=== PATIENT | male | born 1950 | race Caucasian/White ===

== ENCOUNTER → 2016-10-02 | Outpatient (CLI) | payer MEDICARE, OTHER ==
--- NOTE | 2016-10-02 12:35 | EST ---
DATE OF SERVICE: 10/02/2016 AGE: 66Y SEX: M HT: 62 WT: 143 lbs. Protocol Edgardo: X Other: Stage: II Dur. of Exercise: 7 minutes *Heart Rate Blood Pressure *Rest: 82 Rest: 134/87 * *Max. Achieved: 142 Maximum BP: 172/77 85% PMHR: 130 100% PMHR: 153 *METS: 8 INDICATION OF THE STUDY: Chest pain. MEDICATIONS: Metformin. STRESS DATA: Pretesting physical examination showed the heart rate of 82, pressure is 134/87 mmHg, Baseline EKG showed sinus rhythm. The patient exercised on the treadmill according to Edgardo protocol for a total of 7 minutes and achieved 8 of METs. Max heart rate was 142, which is about 92% of maximum predicted heart rate. Maximum blood pressure was 172/77 mmHg. Clinically, the patient did not have any symptoms of chest pain or discomfort and the EKG did not show any significant ST or T wave abnormalities consistent with ischemia. CONCLUSION: 1. Good exercise capacity. 2. Normal EKG in response to exercise.
--- NOTE | 2016-10-02 13:02 | ECHOF ---
Referral Reason:E78.5 hyperlipid MEASUREMENTS -------- HEIGHT: 157.5 cm WEIGHT: 64.9 kg BP: 123/60 RVIDd: 2.5 cm (< 3.3) IVSd: 1.1 cm (0.6 - 1.1) LVIDd: 4.1 cm (3.9 - 5.3) LVPWd: 1.0 cm (0.6 - 1.1) IVSs: 1.5 cm LVIDs: 3.2 cm LVPWs: 1.5 cm LAESV Index (A-L): 11.42 ml/m Ao Diam: 3.4 cm (2.0 - 3.7) AV Cusp: 1.8 cm (1.5 - 2.6) LA Diam: 3.4 cm (2.7 - 3.8) MV EXCURSION: 10.087 mm (> 18.000) MV EF SLOPE: 112 mm/s (70 - 150) EPSS: 1.2 cm MV E Adam: 0.49 m/s MV DecT: 208 ms MV A Adam: 0.69 m/s MV E/A Ratio: 0.70 AR PHT: 521 ms RAP: 5.00 mmHg RVSP: 26.90 mmHg FINDINGS -------- Sinus rhythm. This was a technically adequate study. Overall left ventricular systolic function is normal with, an EF between 55 - 60 %. The right ventricle is normal in size and function. Normal LA size by volume 22+/-6 ml/m2. The right atrium is normal in size. The aortic valve is trileaflet, and appears structurally normal. No aortic stenosis or regurgitation. The mitral valve leaflets are mildly thickened. There is trace to mild mitral regurgitation. Trace tricuspid regurgitation present. There is no evidence of pulmonary hypertension. The right ventricular systolic pressure, as measured by Doppler, is 26.90mmHg. The pulmonic valve is normal. The aortic root size is normal. Normal inferior vena cava with normal inspiratory collapse consistent with estimated right atrial pressure of 5 mmHg. The pericardium is normal. There is no pericardial effusion. CONCLUSIONS -------- 1. Sinus rhythm. 2. The aortic root size is normal. 3. There is no pericardial effusion. 4. Overall left ventricular systolic function is normal with, an EF between 55 - 60 %. 5. Normal LA size by volume 22+/-6 ml/m2. 6. The aortic valve is trileaflet, and appears structurally normal. No aortic stenosis or regurgitation. 7. The mitral valve leaflets are mildly thickened. 8. There is trace to mild mitral regurgitation. 9. Trace tricuspid regurgitation present. 10. There is no evidence of pulmonary hypertension. 11. The right ventricular systolic pressure, as measured by Doppler, is 26.90mmHg. DEMOLITION HAMMER OPERATOR: Theo Javed RDCS
== END | disposition home or self-care (01) ==
LOC: RADNMMAIN 10:26
PROVIDERS: ATTEND Family Medicine
DX: I08.1 Rheumatic disorders of both mitral and tricuspid valves (principal); E78.5 Hyperlipidemia, unspecified
CPT/HCPCS: 93017; 93306

== ENCOUNTER 2016-12-31 06:13 | Day surgery (SDC) | payer MEDICARE, OTHER ==
[2016-12-24 14:44] VITALS: BMI 26.6
[~2016-12-31 06:13] MED LIST: LACTATED RINGERS 1,000 ML IV SCH; MOXIFLOXACIN HCL 0.5% DROPS 3 ML BTL OP ONE; TETRACAINE 0.5% OPHTH (PF) DROPS 4 ML BTL OP ONE; TIMOLOL 0.5% OPHTH SOLN (PF) 0.2 ML DROPERETTE OP ONE
[2016-12-31] MEDS: CYCLOPENTOLATE 1% OPHTH SOLN 2 ML BTL OP ONE ×3 (06:28→06:41)
[2016-12-31 06:30] VITALS: RESP 16; TEMP 97.9
[2016-12-31] MEDS: PHENYLEPHRINE 2.5% OPHTH DRP 2ML OP NR ×3 (06:31→06:44)
[2016-12-31] MEDS ORDERED: LIDOCAINE 1% 20 ML VIAL (10MG/ML) FOR IV START INTRADERMA ONE (06:36)
[2016-12-31 06:41] LABS: Glucose,Whole Blood 180 mg/dL (75-99)
[2016-12-31] MEDS ORDERED: fentaNYL (PF) 50 MCG/ML 2 ML AMP ONE (07:23)
[2016-12-31] MEDS ORDERED: MIDAZOLAM 2 MG/2 ML VIAL ONE (07:23)
[2016-12-31] MEDS ORDERED: EPINEPHrine (PF) 0.3 ML in BALANCED SALT IRRIG SOLN COMB2 500 ML IRRIGATION ONE (07:31)
[2016-12-31] MEDS ORDERED: HYALURONATE SODIUM INTRAOCULAR 1 EACH SYRINGE (12MG/ML) INTRAOCULA ONE (07:34)
[2016-12-31] MEDS ORDERED: BALANCED SALT IRRIG SOLN COMB2 15 ML IRRIG.SOLN INTRAOCULA ONE (07:35)
[2016-12-31] MEDS ORDERED: CHONDROITIN-SOD HYALURONATE 1 EACH SYRINGE (0.75 ML) INTRAOCULA ONE (07:35)
[2016-12-31] MEDS ORDERED: LIDOCAINE 1% (PF) 10MG/ML VIAL MISCELLANE ONE (07:36)
--- NOTE | 2016-12-31 07:57 | P.OP ---
Date of Procedure: 12/31/16 Preoperative Diagnosis: NS & POAG moderate Postoperative Diagnosis: same Procedure(s) Performed: PIOL & iStent implantation Implants: PCB00 21.00 & [id number] Anesthesia: MAC Surgeon: Chace Caro Estimated Blood Loss (ml): 0 Pathology: none sent Condition: stable Disposition: same day Indications for Procedure: blurry vision and glaucoma Operative Findings: No comlpications Description of Procedure:
[2016-12-31 08:18] VITALS: BP 125/75; PULSE 66
--- NOTE | 2017-01-01 15:09 | OP ---
OPERATIVE REPORT Date of Surgery: DATE OF SURGERY: 12/31/2016 PROCEDURE: Phacoemulsification of cataract and intraocular lens implant of the right eye with iStent implantation of the right eye. PREOPERATIVE DIAGNOSES: Nuclear sclerosis. cortical sclerosis, posterior subcapsular cataract, and primary open angle glaucoma, moderate stage. POSTOPERATIVE DIAGNOSIS: Nuclear sclerosis. cortical sclerosis, posterior subcapsular cataract, and primary open angle glaucoma, moderate stage. SURGEONS: Dr. Chace Caro. ANESTHESIA: Topical. ESTIMATED BLOOD LOSS: None. SPECIMEN TAKEN: None. NARRATIVE: After obtaining the appropriate consent, the patient was brought to the operating room. There he was placed on cardiac monitoring, prepped and draped in the usual sterile manner. He was approached from his right temporal side and at the 11 o'clock position a 1.1 mm stab blade was used to create a paracentesis port. Through this opening 1% Xylocaine MPF 50/50 mixed with balanced salt solution was injected into the anterior chamber. This was followed by stabilization of the anterior chamber with Viscoat. Additionally, a small dollop of Viscoat was placed on the patient's cornea. At the 9 o'clock position, a 2.5 mm keratome was used to create a self-sealing corneal flap incision in Langerman's fashion. The patient was then asked to rotate his head approximately 45 degrees to his left and maintain fixation in that general direction. A gonial prism was placed on the patient's eye and examination of the anterior chamber angle revealed where the trabecular meshwork was. A Glaukos iStent model [id number] was then advanced across the anterior chamber and placed into the trabecular mesh work with a small amount of blood refluxing through the tube. The device was checked for proper placement by manipulating it and it returned to its proper position. The patient was then returned to the normal supine position and a cystotome was used to start a continuous tear capsulorrhexis which was completed using the Utrata forceps. Hydrodissection and hydrodelineation of the lens was accomplished with balanced salt solution. Phacoemulsification of the lens utilizing phaco chop was accomplished in 13.04 seconds at 13% power. Additional Xylocaine MPF was instilled into the anterior chamber. This was followed by removal of the remaining cortex under irrigation and aspiration along with careful polishing of the posterior capsule in the capsule vacuum mode. Provisc was then used to then stabilize the capsular bag and an ADWOA PCB00 21.0 diopter posterior chamber intraocular lens was inserted in the capsular bag without difficulty. The remaining viscoelastic was removed from in and around the intra-ocular lens as well as the anterior chamber. The eye was brought to normal intraocular pressure through the paracentesis port with balanced salt solution. The eye was checked for water tight integrity. The patient then received 2 drops of 0.5% timolol followed by 2 drops of moxifloxacin, was then lightly patched and shielded in the usual manner. There were no complications in the procedure. He tolerated the procedure well and was returned to outpatient recovery in good condition. MMODL / IJN: [id number] /
== END 2016-12-31 08:48 | disposition home or self-care (01) ==
LOC: OR 06:13
PROVIDERS: ATTEND Ophthalmology
DX: H25.043 Posterior subcapsular polar age-related cataract, bilateral (principal); H25.10 Age-related nuclear cataract, unspecified eye; H40.1112 Primary open-angle glaucoma, right eye, moderate stage; H52.223 Regular astigmatism, bilateral; H52.11 Myopia, right eye; H52.4 Presbyopia; E11.9 Type 2 diabetes mellitus without complications; E78.5 Hyperlipidemia, unspecified; Z79.84 Long term (current) use of oral hypoglycemic drugs; Z79.899 Other long term (current) drug therapy
CPT/HCPCS: 0191T; 66984

== ENCOUNTER 2019-10-29 22:52 | Emergency (ER) | payer MEDICARE, OTHER ==
[2019-10-29 22:57] VITALS: BP 164/85; PULSE 96; RESP 16; TEMP 98.3
[2019-10-30] MEDS ORDERED: LIDOCAINE 1%-EPI 1:100,000 20 ML VIAL SQ STA (00:05)
[2019-10-30] MEDS ORDERED: AMOXIC-POT CLAV 875-125MG 1 EACH TAB PO STA (00:08)
[2019-10-30] MEDS ORDERED: AMOXIC-POT CLAV 875MG STARTER PACK 2 TAB BTL PO STA (00:08)
--- NOTE | 2019-10-30 00:14 | ED ---
Animal Bite HPI - General Chief Complaint: Animal Bite Stated Complaint: Dog Bite Time Seen by Provider: 10/29/19 23:25 Source: patient, RN notes reviewed, old records reviewed Mode of arrival: ambulatory Limitations: no limitations - History of Present Illness Initial Comments: This is a 69-year-old male DF for evaluation presents today for evaluation ofbit by dog. Patient is a significant flap mild bleeding. Patient denies any other complaints. No other injuries noted. Medical history is unremarkable no medications, no modifying factors for symptoms patient's dog was owned with immunizations and shot up-to-date MD Complaint: animal bite (Dog) -: hour(s) Location: face Animal: dog Description: household pet Mechanism: bite Pain Description: dull Severity scale (1-10): 3 Context: unprovoked Associated Symptoms: none - Related Data Home Medications Medication Instructions Recorded Confirmed Aspirin [Adult Low Dose Aspirin EC] 81 mg PO DAILY 08/13/15 12/31/16 Bimatoprost [Lumigan .01% Ophth 1 drop BOTH EYES HS 08/13/15 12/31/16 Soln] Fenofibrate [Tricor] 160 mg PO DAILY 08/13/15 12/31/16 Simvastatin [Zocor] 10 mg PO HS 08/13/15 12/31/16 Timolol 0.5% Ophth Soln [Timoptic 1 drop BOTH EYES DAILY 08/13/15 12/31/16 0.5% Ophth Soln] metFORMIN HCL [Glucophage] 500 mg PO BID 08/13/15 12/31/16 Previous Rx's Medication Instructions Recorded Amoxic-Pot Clav 875-125Mg 1 tab PO Q12HR #20 tablet 10/30/19 [Augmentin 875-125] Allergies Allergy/AdvReac Type Severity Reaction Status Date / Time No Known Allergies Allergy Verified 10/29/19 22:57 Review of Systems ROS Statement: Those systems with pertinent positive or pertinent negative responses have been documented in the HPI. ROS Other: All systems not noted in ROS Statement are negative. Past Medical History Past Medical History: Diabetes Mellitus, Eye Disorder, Hyperlipidemia Additional Past Medical History / Comment(s): hx kidney stones, CATARACTS, GLAUCOMA History of Any Multi-Drug Resistant Organisms: None Reported Past Surgical History: No Surgical Hx Reported Additional Past Surgical History / Comment(s): 08/14/16 LEFT and right EYE CATARACT SX WITH ISTENT Past Anesthesia/Blood Transfusion Reactions: No Reported Reaction Past Psychological History: No Psychological Hx Reported Smoking Status: Never smoker Past Alcohol Use History: Rare Past Drug Use History: None Reported - Past Family History Sister(s) Family Medical History: Cancer Mother Family Medical History: Cancer General Exam Limitations: no limitations General appearance: alert, in no apparent distress Head exam: Present: normocephalic, normal inspection. Absent: atraumatic (Patient is significantly laceration the facial area off nose, flap with drainage and blood) Eye exam: Present: normal appearance, PERRL, EOMI. Absent: scleral icterus, conjunctival injection, periorbital swelling ENT exam: Present: normal exam, mucous membranes moist Neck exam: Present: normal inspection. Absent: tenderness, meningismus, lymphadenopathy Respiratory exam: Present: normal lung sounds bilaterally. Absent: respiratory distress, wheezes, rales, rhonchi, stridor Cardiovascular Exam: Present: regular rate, normal rhythm, normal heart sounds. Absent: systolic murmur, diastolic murmur, rubs, gallop, clicks GI/Abdominal exam: Present: soft, normal bowel sounds. Absent: distended, tenderness, guarding, rebound, rigid Extremities exam: Present: normal inspection, full ROM, normal capillary refill. Absent: tenderness, pedal edema, joint swelling, calf tenderness Back exam: Present: normal inspection Neurological exam: Present: alert, oriented X3, CN II-XII intact Psychiatric exam: Present: normal affect, normal mood Skin exam: Present: warm, dry, intact, normal color. Absent: rash Course Vital Signs 10/29/19 22:52 Temperature 98.3 F Pulse Rate 96 Respiratory 16 Rate Blood Pressure 164/85 O2 Sat by Pulse 100 Oximetry - Reevaluation(s) Reevaluation #1: Medical records reviewed Patient feels good for discharge home Procedures - Laceration Laceration #1 Consent Obtained: verbal consent Indication: laceration Site: face Description: stellate, irregular Depth: simple, single layer Anesthetic Used: lidocaine 1%, with epi Anesthesia Technique: local infiltration Pre-repair: wound explored Type of Sutures: vicryl Size of Sutures: 5-0 Technique: simple, interrupted Patient Tolerated Procedure: well Medical Decision Making - Medical Decision Making 69 male with significant dogbite of the nose nose is repaired here in the ER patient antibiotics and will be discharged Disposition Clinical Impression: Dog bite, Dog bite of nose Disposition: HOME SELF-CARE Condition: Good Instructions (If sedation given, give patient instructions): Animal Bite (ED) Prescriptions: Amoxic-Pot Clav 875-125Mg [Augmentin 875-125] 1 tab PO Q12HR #20 tablet Is patient prescribed a controlled substance at d/c from ED?: No Referrals: Mitch Ashley DO [Primary Care Provider] - 1-2 days
== END 2019-10-30 01:12 | disposition home or self-care (01) ==
LOC: EC 22:52
DX: S01.25XA Open bite of nose, initial encounter (principal); E11.9 Type 2 diabetes mellitus without complications; H57.9 Unspecified disorder of eye and adnexa; E78.5 Hyperlipidemia, unspecified; Z79.82 Long term (current) use of aspirin; Z79.84 Long term (current) use of oral hypoglycemic drugs; Z79.899 Other long term (current) drug therapy; Z98.42 Cataract extraction status, left eye; Z98.41 Cataract extraction status, right eye; W54.0XXA Bitten by dog, initial encounter
CPT/HCPCS: 12011; 99282

== ENCOUNTER 2021-09-25 22:15 | Emergency (ER) | payer MEDICARE, OTHER ==
[2021-09-26 00:03] VITALS: TEMP 98.3
[2021-09-26] MEDS ORDERED: ONDANSETRON ODT 4 MG TAB PO STA (00:04)
[2021-09-26 00:23] LABS: Appearance,Urine Clear (Clear); Bilirubin,Urine Negative (Negative); Blood,Urine Moderate (Negative); Color,Urine Yellow; Glucose,Urine (UA) Negative (Negative); Ketones,Urine Negative (Negative); Leukocyte Esterase,Urine Trace (Negative); Mucus,Urine Rare /hpf; Nitrite,Urine Negative (Negative); PH, Urine 5.5 (5.0-8.0); Protein,Urine Trace (Negative); RBC,Urine 74 /hpf (0-5); Urobilinogen,Urine <2.0 mg/dL (<2.0); WBC,Urine 8 /hpf (0-5)
[2021-09-26 00:36] LABS: Basophils % (A) 0 %; Eosinophils # (A) 0.1 k/uL (0-0.7); Eosinophils % (A) 2 %; HCT 47.5 % (39.0-53.0); HGB 15.2 gm/dL (13.0-17.5); Lymphocytes # (A) 1.8 k/uL (1.0-4.8); Lymphocytes % (A) 25 %; MCH 29.7 pg (25.0-35.0); MCHC 32.1 g/dL (31.0-37.0); MCV 92.4 fL (80.0-100.0); Mean Platelet Volume 8.9; Monocytes # (A) 0.3 k/uL (0-1.0); Monocytes % (A) 4 %; Neutrophils % (A) 68 %; Platelet Count 195 k/uL (150-450); RBC 5.14 m/uL (4.30-5.90); RDW 13.2 % (11.5-15.5); WBC 7.3 k/uL (3.8-10.6)
--- NOTE | 2021-09-26 00:57 | XR ---
EXAMINATION TYPE: XR KUB DATE OF EXAM: 09/26/2021 COMPARISON: NONE HISTORY: Vomiting TECHNIQUE: 2 views FINDINGS: There is a mild lumbar dextroscoliosis. There is 4 mm calculus over the lower pole left kid kunal. There is no sign of intestinal obstruction or pneumoperitoneum. Fecal pattern is normal. There a re phleboliths in the pelvis. Lung bases are clear. No evidence of a mass. IMPRESSION: Nonacute abdomen.
[2021-09-26 01:43] LABS: Potassium 4.5 mmol/L (3.5-5.1); Total Protein 7.6 g/dL (6.3-8.2)
[2021-09-26 01:45] LABS: Calcium 9.9 mg/dL (8.4-10.2); Total Bilirubin 0.5 mg/dL (0.2-1.3)
[2021-09-26 03:42] VITALS: BP 123/78; PULSE 70; RESP 16
--- NOTE | 2021-09-26 04:37 | ED ---
Nausea/Vomiting/Diarrhea HPI - General Chief complaint: Nausea/Vomiting/Diarrhea Stated complaint: Vomiting Time Seen by Provider: 09/26/21 03:56 Source: patient Mode of arrival: ambulatory - History of Present Illness MD complaint: nausea, vomiting Onset/Timin -: hour(s) Description of Vomiting: watery Associated Abdominal Pain: No Severity scale (1-10): 0 Consistency: now resolved Improves with: none Worsens with: none Associated Symptoms: nausea/vomiting - Related Data Home Medications Medication Instructions Recorded Confirmed Aspirin [Adult Low Dose Aspirin EC] 81 mg PO DAILY 08/13/15 12/31/16 Bimatoprost [Lumigan .01% Ophth 1 drop BOTH EYES HS 08/13/15 12/31/16 Soln] Fenofibrate [Tricor] 160 mg PO DAILY 08/13/15 12/31/16 Simvastatin [Zocor] 10 mg PO HS 08/13/15 12/31/16 Timolol 0.5% Ophth Soln [Timoptic 1 drop BOTH EYES DAILY 08/13/15 12/31/16 0.5% Ophth Soln] metFORMIN HCL [Glucophage] 500 mg PO BID 08/13/15 12/31/16 Previous Rx's Medication Instructions Recorded Amoxic-Pot Clav 875-125Mg 1 tab PO Q12HR #20 tablet 10/30/19 [Augmentin 875-125] Ondansetron Odt [Zofran ODT] 4 mg PO Q8HR PRN #10 tab 09/26/21 Allergies Allergy/AdvReac Type Severity Reaction Status Date / Time No Known Allergies Allergy Verified 09/26/21 00:04 Review of Systems ROS Statement: Those systems with pertinent positive or pertinent negative responses have been documented in the HPI. ROS Other: All systems not noted in ROS Statement are negative. Constitutional: Denies: fever, chills, weakness Respiratory: Denies: cough, dyspnea Cardiovascular: Denies: chest pain, palpitations Gastrointestinal: Reports: nausea, vomiting. Denies: abdominal pain, diarrhea, constipation, hematemesis, melena, hematochezia Genitourinary: Denies: dysuria, frequency, testicular pain Musculoskeletal: Denies: back pain Skin: Denies: rash Neurological: Denies: headache, weakness, numbness Past Medical History Past Medical History: Diabetes Mellitus, Eye Disorder, Hyperlipidemia, Thyroid Disorder Additional Past Medical History / Comment(s): hx kidney stones, CATARACTS, GLAUCOMA History of Any Multi-Drug Resistant Organisms: None Reported Past Surgical History: No Surgical Hx Reported Additional Past Surgical History / Comment(s): 08/14/16 LEFT and right EYE CATARACT SX WITH ISTENT Past Anesthesia/Blood Transfusion Reactions: No Reported Reaction Past Psychological History: No Psychological Hx Reported Smoking Status: Never smoker Past Alcohol Use History: Rare Past Drug Use History: None Reported - Past Family History Sister(s) Family Medical History: Cancer Mother Family Medical History: Cancer General Exam General appearance: alert, in no apparent distress Head exam: Present: atraumatic, normocephalic Eye exam: Present: normal appearance. Absent: scleral icterus, conjunctival injection Neck exam: Present: normal inspection Respiratory exam: Present: normal lung sounds bilaterally. Absent: respiratory distress, wheezes, rales, rhonchi, stridor Cardiovascular Exam: Present: regular rate, normal rhythm, normal heart sounds. Absent: systolic murmur, diastolic murmur, rubs, gallop GI/Abdominal exam: Present: soft. Absent: distended, tenderness, guarding, rebound, rigid, mass, pulsatile mass, hernia Extremities exam: Present: normal inspection, normal capillary refill. Absent: pedal edema, calf tenderness Back exam: Present: normal inspection. Absent: CVA tenderness (R), CVA tenderness (L) Neurological exam: Present: alert Skin exam: Present: warm, dry, intact, normal color. Absent: rash Course Vital Signs 09/25/21 09/26/21 23:59 03:36 Temperature 98.3 F Pulse Rate 88 70 Respiratory 19 16 Rate Blood Pressure 129/83 123/78 O2 Sat by Pulse 99 97 Oximetry Medical Decision Making - Medical Decision Making This patient is 71-year-old man presenting for acute nausea and vomiting. His workup does reveal very mild pancreatitis. Discussed admission versus home treatment and at this point patient would rather try managing at home. We discussed appropriate return parameters and follow-up. Also discussed the presence of the microscopic hematuria and appropriate follow-up for that condition. - Lab Data Result diagrams: 09/26/21 00:30 09/26/21 00:30 Lab Results 09/26/21 09/26/21 09/26/21 Range/Units 00:14 00:30 00:30 WBC 7.3 (3.8-10.6) k/uL RBC 5.14 (4.30-5.90) m/uL Hgb 15.2 (13.0-17.5) gm/dL Hct 47.5 (39.0-53.0) % MCV 92.4 (80.0-100.0) fL MCH 29.7 (25.0-35.0) pg MCHC 32.1 (31.0-37.0) g/dL RDW 13.2 (11.5-15.5) % Plt Count 195 (150-450) k/uL MPV 8.9 Neutrophils % 68 % Lymphocytes % 25 % Monocytes % 4 % Eosinophils % 2 % Basophils % 0 % Neutrophils # 5.0 (1.3-7.7) k/uL Lymphocytes # 1.8 (1.0-4.8) k/uL Monocytes # 0.3 (0-1.0) k/uL Eosinophils # 0.1 (0-0.7) k/uL Basophils # 0.0 (0-0.2) k/uL Sodium 143 (137-145) mmol/L Potassium 4.5 (3.5-5.1) mmol/L Chloride 107 (98-107) mmol/L Carbon Dioxide 26 (22-30) mmol/L Anion Gap 10 mmol/L BUN 23 H (9-20) mg/dL Creatinine 1.54 H (0.66-1.25) mg/dL Est GFR (CKD-EPI)AfAm 51 (>60 ml/min/1.73 sqM) Est GFR (CKD-EPI)NonAf 44 (>60 ml/min/1.73 sqM) Glucose 138 H (74-99) mg/dL Calcium 9.9 (8.4-10.2) mg/dL Total Bilirubin 0.5 (0.2-1.3) mg/dL AST 36 (17-59) U/L ALT 20 (4-49) U/L Alkaline Phosphatase 31 L (38-126) U/L Total Protein 7.6 (6.3-8.2) g/dL Albumin 5.0 (3.5-5.0) g/dL Amylase 212 H (30-110) U/L Lipase 354 H (23-300) U/L Urine Color Yellow Urine Appearance Clear (Clear) Urine pH 5.5 (5.0-8.0) Ur Specific [place] 1.020 (1.001-1.035) Urine Protein Trace H (Negative) Urine Glucose (UA) Negative (Negative) Urine Ketones Negative (Negative) Urine Blood Moderate H (Negative) Urine Nitrite Negative (Negative) Urine Bilirubin Negative (Negative) Urine Urobilinogen <2.0 (<2.0) mg/dL Ur Leukocyte Esterase Trace H (Negative) Urine RBC 74 H (0-5) /hpf Urine WBC 8 H (0-5) /hpf Urine Mucus Rare H (None) /hpf Disposition Clinical Impression: Hematuria, Pancreatitis, Nausea and vomiting Disposition: HOME SELF-CARE Condition: Fair Instructions (If sedation given, give patient instructions): Acute Nausea and Vomiting (ED) Prescriptions: Ondansetron Odt [Zofran ODT] 4 mg PO Q8HR PRN #10 tab PRN Reason: Nausea Is patient prescribed a controlled substance at d/c from ED?: No Referrals: Mitch Ashley DO [Primary Care Provider] - 1-2 days
== END 2021-09-26 05:06 | disposition home or self-care (01) ==
LOC: EC 22:15
DX: K85.90 Acute pancreatitis without necrosis or infection, unspecified (principal); R31.9 Hematuria, unspecified; E78.5 Hyperlipidemia, unspecified; Z79.84 Long term (current) use of oral hypoglycemic drugs; E11.36 Type 2 diabetes mellitus with diabetic cataract; Z72.89 Other problems related to lifestyle
CPT/HCPCS: 36415; 74018; 80053; 81001; 82150; 83690; 85025; 99284

== ENCOUNTER 2022-12-03 10:41 | Observation (INO) | payer MEDICARE, OTHER ==
[2022-12-03 11:27] LABS: Basophils % (A) 0 %; Eosinophils # (A) 0.1 k/uL (0-0.7); Eosinophils % (A) 2 %; HCT 42.1 % (39.0-53.0); Lymphocytes # (A) 1.2 k/uL (1.0-4.8); Lymphocytes % (A) 20 %; MCH 30.6 pg (25.0-35.0); MCHC 33.3 g/dL (31.0-37.0); MCV 91.7 fL (80.0-100.0); Mean Platelet Volume 9.1; Monocytes # (A) 0.3 k/uL (0-1.0); Monocytes % (A) 4 %; Neutrophils # (A) 4.4 k/uL (1.3-7.7); Neutrophils % (A) 73 %; Platelet Count 152 k/uL (150-450); RDW 12.7 % (11.5-15.5)
--- NOTE | 2022-12-03 11:36 | XR ---
EXAMINATION TYPE: XR chest 2V DATE OF EXAM: 12/03/2022 11:32 AM COMPARISON: None TECHNIQUE: XR chest 2V Frontal and lateral views of the chest. CLINICAL INDICATION:Male, 72 years old with history of Chest Pain; FINDINGS: Lungs/Pleura: There is no evidence of pleural effusion, focal consolidation, or pneumothorax. Pulmonary vascularity: Unremarkable. Heart/mediastinum: Cardiomediastinal silhouette is unremarkable. Musculoskeletal: No acute osseous pathology. Degenerative changes of the thoracic spine. IMPRESSION: No acute cardiopulmonary disease/process.
[2022-12-03 11:37] LABS: ALT 19 U/L (4-49); African American GFR (CKD) 61 (>60 ml/min/1.73 sqM); Albumin 4.2 g/dL (3.5-5.0); Anion Gap 7 mmol/L; Blood Urea Nitrogen 23 mg/dL (9-20); Calcium 9.9 mg/dL (8.4-10.2); Carbon Dioxide 23 mmol/L (22-30); Chloride 106 mmol/L (98-107); Glucose 210 mg/dL (74-99); Non-African American GFR(CKD) 53 (>60 ml/min/1.73 sqM); Sodium 136 mmol/L (137-145); Total Bilirubin 0.8 mg/dL (0.2-1.3); Total Protein 6.8 g/dL (6.3-8.2)
[2022-12-03 11:43] LABS: AST 35 U/L (17-59); Alkaline Phosphatase <20 U/L (38-126); Magnesium 1.9 mg/dL (1.6-2.3); Potassium 4.3 mmol/L (3.5-5.1)
[2022-12-03 12:09] LABS: Partial Thromboplastin Time 23.4 sec (22.0-30.0); Prothrombin Time 10.7 sec (9.0-12.0)
[2022-12-03] MEDS ORDERED: ASPIRIN 81 MG PO STA (12:26)
[2022-12-03] MEDS ORDERED: NITROGLYCERIN OINT 1 INCH/GM PACKET TOPICAL STA (12:26)
--- NOTE | 2022-12-03 12:32 | ED ---
General Adult HPI - General Chief complaint: Chest Pain Stated complaint: chest pain Time Seen by Provider: 12/03/22 12:00 Source: patient, RN notes reviewed, old records reviewed Mode of arrival: ambulatory Limitations: no limitations - History of Present Illness Initial comments: This is a 72-year-old male who presents emergency Department complaining of chest pain. Patient states she's had 2 episodes since last evening both lasting about 45 minutes to an hour. Patient states he had no radiation of the pain however it was a very heavy sensation like someone was sitting on his chest. Patient is a diabetic and does have a family history of heart disease. Patient states currently is chest pain-free. Patient denies any diaphoretic episodes pa tient denies any nausea. Patient denies abdominal pain patient denies any headache patient denies lightheadedness or dizziness. Patient denies any recent fever chills or cough - Related Data Home Medications Medication Instructions Recorded Confirmed Aspirin [Adult Low Dose Aspirin EC] 81 mg PO DAILY 08/13/15 12/31/16 Bimatoprost [Lumigan .01% Ophth 1 drop BOTH EYES HS 08/13/15 12/31/16 Soln] Fenofibrate [Tricor] 160 mg PO DAILY 08/13/15 12/31/16 Simvastatin [Zocor] 10 mg PO HS 08/13/15 12/31/16 Timolol 0.5% Ophth Soln [Timoptic 1 drop BOTH EYES DAILY 08/13/15 12/31/16 0.5% Ophth Soln] metFORMIN HCL [Glucophage] 500 mg PO BID 08/13/15 12/31/16 Previous Rx's Medication Instructions Recorded Amoxic-Pot Clav 875-125Mg 1 tab PO Q12HR #20 tablet 10/30/19 [Augmentin 875-125] Ondansetron Odt [Zofran ODT] 4 mg PO Q8HR PRN #10 tab 09/26/21 Allergies Allergy/AdvReac Type Severity Reaction Status Date / Time No Known Allergies Allergy Verified 12/03/22 10:48 Review of Systems ROS Statement: Those systems with pertinent positive or pertinent negative responses have been documented in the HPI. ROS Other: All systems not noted in ROS Statement are negative. Past Medical History Past Medical History: Diabetes Mellitus, Eye Disorder, Hyperlipidemia, Thyroid Disorder Additional Past Medical History / Comment(s): hx kidney stones, CATARACTS, GLAUCOMA History of Any Multi-Drug Resistant Organisms: None Reported Past Surgical History: No Surgical Hx Reported Additional Past Surgical History / Comment(s): 08/14/16 LEFT and right EYE CATARACT SX WITH ISTENT Past Anesthesia/Blood Transfusion Reactions: No Reported Reaction Past Psychological History: No Psychological Hx Reported Smoking Status: Never smoker Past Alcohol Use History: Rare Past Drug Use History: None Reported - Past Family History Sister(s) Family Medical History: Cancer Mother Family Medical History: Cancer General Exam - General Exam Comments Initial Comments: GENERAL: Patient is well-developed and well-nourished. Patient is nontoxic and well- hydrated and is in mild distress. ENT: Neck is soft and supple. No significant lymphadenopathy is noted. Oropharynx is clear. Moist mucous membranes. Neck has full range of motion without eliciting any pain. EYES: The sclera were anicteric and conjunctiva were pink and moist. Extraocular movements were intact and pupils were equal round and reactive to light. Eyelids were unremarkable. PULMONARY: Unlabored respirations. Good breath sounds bilaterally. No audible rales rhonchi or wheezing was noted. CARDIOVASCULAR: There is a regular rate and rhythm without any murmurs gallops or rubs. ABDOMEN: Soft and nontender with normal bowel sounds. SKIN: Skin is clear with no lesions or rashes and otherwise unremarkable. NEUROLOGIC: Patient is alert and oriented x3. Cranial nerves II through XII are grossly intact. Motor and sensory are also intact. Normal speech, volume and content. Symmetrical smile. MUSCULOSKELETAL: Normal extremities with adequate strength and full range of motion. LYMPHATICS: No significant lymphadenopathy is noted PSYCHIATRIC: Normal psychiatric evaluation. Limitations: no limitations Course Vital Signs 12/03/22 10:46 Temperature 97.7 F Pulse Rate 72 Respiratory 18 Rate Blood Pressure 145/83 O2 Sat by Pulse 99 Oximetry Medical Decision Making - Medical Decision Making EKG was interpreted by myself shows sinus rhythm at 71 bpm TN interval 270 QRS is 74 Q-T intervals 370 QTC is 394 per patient's EKG shows no ST segment elevation or depression. Was pt. sent in by a medical professional or institution (, PA, PADDING MACHINE OPERATOR, urgent ca re, hospital, or alf...) When possible be specific @ -No Did you speak to anyone other than the patient for history (EMS, parent, family, police, friend...)? What history was obtained from this source @ -No Did you review nursing and triage notes (agree or disagree)? Why? @ -I reviewed and agree with nursing and triage notes Were old charts reviewed (outside hosp., previous admission, EMS record, old EKG, old radiological studies, urgent care reports/EKG's, alf records)? Report findings @ -Reviewed prior charts per lab work on this patient. Differential Diagnosis (chest pain, altered mental status, abdominal pain women, abdominal pain men, vaginal bleeding, weakness, fever, dyspnea, syncope, headache, dizziness, GI bleed, back pain, seizure, CVA, palpatations, mental health, musculoskeletal)? @ -Differential Chest Pain: Stable Angina, Unstable Angina, STEMI, NSTEMI Aortic Dissection, Pneumothorax, Musculoskeletal, Esophageal Spasm GERD, Cholecystitis, Pancreatitis, Zoster, this is not meant to be an all-inclusive list. EKG interpreted by me (3pts min.). @ -As above X-rays interpreted by me (1pt min.). @ -Chest x-ray shows no acute abnormality CT interpreted by me (1pt min.). @ -None done U/S interpreted by me (1pt. min.). @ -None done What testing was considered but not performed or refused? (CT, X-rays, U/S, labs)? Why? @ -None What meds were considered but not given or refused? Why? @ -None Did you discuss the management of the patient with other professionals (professionals i.e. , PA, PADDING MACHINE OPERATOR, lab, RT, psych nurse, 7th grade social studies teacher, electronic wirer, teacher, tactical intelligence officer, case resource manager)? Give summary @ -I spoke with Dr. Ashley about this patient he agreed to admit the patient. Was smoking cessation discussed for >3mins.? @ -No Was critical care preformed (if so, how long)? @ -No Were there social determinants of health that impacted care today? How? (Homelessness, low income, unemployed, alcoholism, drug addiction, transportation, low edu. Level, literacy, decrease access to med. care, long-term, rehab)? @ -No Was there de-escalation of care discussed even if they declined (Discuss DNR or withdrawal of care, Hospice)? DNR status @ -No What co-morbidities impacted this encounter? (DM, HTN, Smoking, COPD, CAD, Cancer, CVA, ARF, Chemo, Hep., AIDS, mental health diagnosis, sleep apnea, morbid obesity)? @ -Diabetes, strong family history of heart disease Was patient admitted / discharged? Hospital course, mention meds given and route, prescriptions, significant lab abnormalities, going to OR and other pertinent info. @ -Patient remained pain-free throughout the ED course. Patient's lab work came back troponin was within normal limits EKG was normal. I spoke with Dr. Ashley she didn't want the patient admitted. I will admit the patient wrote admitting orders and repeat troponins as well as consult cardiology. Undiagnosed new problem with uncertain prognosis? @ -No Drug Therapy requiring intensive monitoring for toxicity (Heparin, Nitro, Insulin, Cardizem)? @ -No Were any procedures done? @ -No Diagnosis/symptom? @ -Chest pain Acute, or Chronic, or Acute on Chronic? @ -Acute Uncomplicated (without systemic symptoms) or Complicated (systemic symptoms)? @ -Complicated Side effects of treatment? @ -No Exacerbation, Progression, or Severe Exacerbation? @ -No Poses a threat to life or bodily function? How? (Chest pain, USA, AR, pneumonia, PE, COPD, DKA, ARF, appy, cholecystitis, CVA, Diverticulitis, Homicidal, Suicidal, threat to staff... and all critical care pts) @ -Yes this could lead to an AR could lead to - Lab Data Result diagrams: 12/03/22 10:52 12/03/22 10:52 Lab Results 12/03/22 12/03/22 12/03/22 Range/Units 10:52 10:52 10:52 WBC 6.0 (3.8-10.6) k/uL RBC 4.60 (4.30-5.90) m/uL Hgb 14.0 (13.0-17.5) gm/dL Hct 42.1 (39.0-53.0) % MCV 91.7 (80.0-100.0) fL MCH 30.6 (25.0-35.0) pg MCHC 33.3 (31.0-37.0) g/dL RDW 12.7 (11.5-15.5) % Plt Count 152 (150-450) k/uL MPV 9.1 Neutrophils % 73 % Lymphocytes % 20 % Monocytes % 4 % Eosinophils % 2 % Basophils % 0 % Neutrophils # 4.4 (1.3-7.7) k/uL Lymphocytes # 1.2 (1.0-4.8) k/uL Monocytes # 0.3 (0-1.0) k/uL Eosinophils # 0.1 (0-0.7) k/uL Basophils # 0.0 (0-0.2) k/uL PT 10.7 (9.0-12.0) sec INR 1.0 (<1.2) APTT 23.4 (22.0-30.0) sec Sodium 136 L (137-145) mmol/L Potassium 4.3 (3.5-5.1) mmol/L Chloride 106 (98-107) mmol/L Carbon Dioxide 23 (22-30) mmol/L Anion Gap 7 mmol/L BUN 23 H (9-20) mg/dL Creatinine 1.33 H (0.66-1.25) mg/dL Est GFR (CKD-EPI)AfAm 61 (>60 ml/min/1.73 sqM) Est GFR (CKD-EPI)NonAf 53 (>60 ml/min/1.73 sqM) Glucose 210 H (74-99) mg/dL Calcium 9.9 (8.4-10.2) mg/dL Magnesium 1.9 (1.6-2.3) mg/dL Total Bilirubin 0.8 (0.2-1.3) mg/dL AST 35 (17-59) U/L ALT 19 (4-49) U/L Alkaline Phosphatase <20 L (38-126) U/L Troponin I (0.000-0.034) ng/mL Total Protein 6.8 (6.3-8.2) g/dL Albumin 4.2 (3.5-5.0) g/dL 12/03/22 Range/Units 10:52 WBC (3.8-10.6) k/uL RBC (4.30-5.90) m/uL Hgb (13.0-17.5) gm/dL Hct (39.0-53.0) % MCV (80.0-100.0) fL MCH (25.0-35.0) pg MCHC (31.0-37.0) g/dL RDW (11.5-15.5) % Plt Count (150-450) k/uL MPV Neutrophils % % Lymphocytes % % Monocytes % % Eosinophils % % Basophils % % Neutrophils # (1.3-7.7) k/uL Lymphocytes # (1.0-4.8) k/uL Monocytes # (0-1.0) k/uL Eosinophils # (0-0.7) k/uL Basophils # (0-0.2) k/uL PT (9.0-12.0) sec INR (<1.2) APTT (22.0-30.0) sec Sodium (137-145) mmol/L Potassium (3.5-5.1) mmol/L Chloride (98-107) mmol/L Carbon Dioxide (22-30) mmol/L Anion Gap mmol/L BUN (9-20) mg/dL Creatinine (0.66-1.25) mg/dL Est GFR (CKD-EPI)AfAm (>60 ml/min/1.73 sqM) Est GFR (CKD-EPI)NonAf (>60 ml/min/1.73 sqM) Glucose (74-99) mg/dL Calcium (8.4-10.2) mg/dL Magnesium (1.6-2.3) mg/dL Total Bilirubin (0.2-1.3) mg/dL AST (17-59) U/L ALT (4-49) U/L Alkaline Phosphatase (38-126) U/L Troponin I <0.012 (0.000-0.034) ng/mL Total Protein (6.3-8.2) g/dL Albumin (3.5-5.0) g/dL Disposition Clinical Impression: Chest pain Disposition: ADMITTED IP TO THIS HOSP Referrals: Mitch Ashley DO [Primary Care Provider] - 1-2 days Time of Disposition: 13:20
[2022-12-03] MEDS ORDERED: NITROGLYCERIN SL TABS 0.4 MG TAB SUBLINGUAL PRN (13:20)
--- NOTE | 2022-12-03 14:03 | P.CRDCN ---
History of Present Illness History of present illness: HISTORY OF PRESENT ILLNESS: This is a 72-year-old male with a past medical history significant for obstructive sleep apnea, diabetes, and hyperlipidemia. Patient does not follow with a brazer induction. We have been asked to see the patient in consultation for chest pain. Patient examined at the bedside. Patient states he began having chest pain yesterday around 10 PM as he was getting ready for bed. He states that he decided to go to sleep anyways. He states he woke up in the middle the night and continued to have discomfort so he took some Tums and went back to sleep. He states when he woke up this morning he continued to have chest pain so he came to the emergency room for further evaluation. The patient states his pain was in the middle of his chest and he describes it as an elephant sitting on his chest. He denied any radiation of the pain. However at the time of examination he is complaining of some lower back pain. He denied feeling short of breath. He denied dizziness or lightheadedness. He denied any nausea or vomiting. He states the pain went away on its own this morning while he was in the emergency room. He states he received 3 aspirin but his pain had already resolved at that time. He is a nonsmoker. He denies a family history of coronary artery disease. * EKG reveals sinus mechanism with T-wave inversions in lead 3 * Chest xray negative for acute process * Laboratory data: WBC 6.0. Hemoglobin 14.0. Platelet count 152. Sodium 136. BUN 23. Creatinine 1.33. Troponin negative 1. * Current home cardiac medications include aspirin 81 mg daily, TriCor 160 mg at night, simvastatin 10 mg at night * Most recent echocardiogram obtained in October 2016 revealed ejection fraction 55-60%, trace to mild mitral regurgitation, trace tricuspid regurgitation. * Patient underwent stress testing in October 2016 which was negative for ischemia REVIEW OF SYSTEMS: At the time of my exam: CONSTITUTIONAL: Denies fever or chills. HEENT: Denies blurred vision, vision changes, or eye pain. Denies hemoptysis CARDIOVASCULAR: Denies chest pain. Denies orthopnea. Denies PND. Denies palpitations RESPIRATORY: Denies shortness of breath. GASTROINTESTINAL: Denies abdominal pain. Denies nausea or vomiting. HEMATOLOGIC: Denies bleeding disorders. GENITOURINARY: Denies any blood in urine. SKIN: Denies pruitis. Denies rash. PHYSICAL EXAM: VITAL SIGNS: Reviewed. GENERAL: Well-developed in no acute distress. HEENT: Head is normocephalic. Pupils are equal, round. Sclerae anicteric. Mucous membranes of the mouth are moist. Neck supple. No JVD or thyromegaly LUNGS: Respirations even and unlabored. Lungs essentially clear to auscultation bilaterally. HEART: Regular rate and rhythm. S1 and S2 heard. ABDOMEN: Soft. Nondistended. Nontender. EXTREMITIES: Normal range of motion. No clubbing or cyanosis. Peripheral pulses intact. No lower extremity edema NEUROLOGIC: Awake and alert. Oriented x 3. ASSESSMENT: Chest pain Hyperlipidemia Diabetes Obstructive sleep apnea with CPAP use PLAN: Obtain 2-D echo to assess cardiac structure and function Resume home cardiac medications Obtain lipid panel and hemoglobin A1c Trend troponins If troponins remain negative, patient will be scheduled for stress echo tomorrow NPO at midnight Further recommendations pending patient course Nurse practitioner note has been reviewed by physician. Signing provider agrees with the documented findings, assessment, and plan of care. Past Medical History Past Medical History: Diabetes Mellitus, Eye Disorder, Hyperlipidemia, Thyroid Disorder Additional Past Medical History / Comment(s): hx kidney stones, CATARACTS, GLAUCOMA History of Any Multi-Drug Resistant Organisms: None Reported Past Surgical History: No Surgical Hx Reported Additional Past Surgical History / Comment(s): 08/14/16 LEFT and right EYE CATARACT SX WITH ISTENT Past Anesthesia/Blood Transfusion Reactions: No Reported Reaction Past Psychological History: No Psychological Hx Reported Smoking Status: Never smoker Past Alcohol Use History: Rare Past Drug Use History: None Reported - Past Family History Sister(s) Family Medical History: Cancer Mother Family Medical History: Cancer Medications and Allergies Home Medications Medication Instructions Recorded Confirmed Type Aspirin [Adult Low Dose Aspirin EC] 81 mg PO DAILY 08/13/15 12/03/22 History Fenofibrate [Tricor] 160 mg PO HS 08/13/15 12/03/22 History Simvastatin [Zocor] 10 mg PO HS 08/13/15 12/03/22 History metFORMIN HCL [Glucophage] 1,000 mg PO W/BRKFST 08/13/15 12/03/22 History Cholecalciferol [Vitamin D3 (25 50 mcg PO DAILY 12/03/22 12/03/22 History Mcg = 1000 Iu)] Dorzolamide-Timol 2.23%/0.68% 1 drop BOTH EYES BID 12/03/22 12/03/22 History [Cosopt] Glimepiride [Amaryl] 1 mg PO W/BRKFST 12/03/22 12/03/22 History Latanoprost [Latanoprost 0.005%] 1 drop BOTH EYES HS 12/03/22 12/03/22 History Levothyroxine Sodium [Synthroid] 50 mcg PO DAILY 12/03/22 12/03/22 History metFORMIN HCL 500 mg PO W/SUPPER 12/03/22 12/03/22 History Allergies Allergy/AdvReac Type Severity Reaction Status Date / Time No Known Allergies Allergy Verified 12/03/22 13:28 Physical Exam Vitals: Vital Signs Temp Pulse Resp BP Pulse Ox 12/03/22 10:46 97.7 F 72 18 145/83 99 Intake and Output 12/02/22 12/03/22 12/03/22 22:59 06:59 14:59 Other: Weight 65.771 kg Results 12/03/22 10:52 12/03/22 10:52 Cardiac Enzymes 12/03/22 12/03/22 Range/Units 10:52 10:52 AST 35 (17-59) U/L Troponin I <0.012 (0.000-0.034) ng/mL Coagulation 12/03/22 Range/Units 10:52 PT 10.7 (9.0-12.0) sec APTT 23.4 (22.0-30.0) sec CBC 12/03/22 Range/Units 10:52 WBC 6.0 (3.8-10.6) k/uL RBC 4.60 (4.30-5.90) m/uL Hgb 14.0 (13.0-17.5) gm/dL Hct 42.1 (39.0-53.0) % Plt Count 152 (150-450) k/uL Comprehensive Metabolic Panel 12/03/22 Range/Units 10:52 Sodium 136 L (137-145) mmol/L Potassium 4.3 (3.5-5.1) mmol/L Chloride 106 (98-107) mmol/L Carbon Dioxide 23 (22-30) mmol/L BUN 23 H (9-20) mg/dL Creatinine 1.33 H (0.66-1.25) mg/dL Glucose 210 H (74-99) mg/dL Calcium 9.9 (8.4-10.2) mg/dL AST 35 (17-59) U/L ALT 19 (4-49) U/L Alkaline Phosphatase <20 L (38-126) U/L Total Protein 6.8 (6.3-8.2) g/dL Albumin 4.2 (3.5-5.0) g/dL Current Medications Generic Name Dose Route Start Last Admin Trade Name Freq PRN Reason Stop Dose Admin Aspirin 325 mg 12/04/22 09:00 Aspirin 325 Mg Tab PO DAILY STACIE Nitroglycerin 0.4 mg 12/03/22 13:20 Nitroglycerin Sl Tabs 0.4 Mg Tab SUBLINGUAL Q5M PRN Chest Pain Nitroglycerin 1 inch 12/03/22 18:00 Nitroglycerin Oint 1 Inch/Gm Packet TOPICAL Q6HR STACIE Intake and Output 12/02/22 12/03/22 12/03/22 22:59 06:59 14:59 Other: Weight 65.771 kg Patient Weight 12/04/22 06:59 Weight 65.771 kg 12/03/22 10:52 12/03/22 10:52
[2022-12-03] MEDS ORDERED: NITROGLYCERIN OINT 1 INCH/GM PACKET TOPICAL SCH (18:00)
[2022-12-03] MEDS ORDERED: ATORVASTATIN 10 MG TAB PO SCH (21:00)
[2022-12-03] MEDS: ATORVASTATIN 20 MG TAB PO SCH (21:58)
[2022-12-03] MEDS: FENOFIBRATE 160 MG TAB PO SCH (21:58)
[2022-12-03] MEDS: DORZOLAMIDE-TIMOLOL 2.23%/0.68 10ML BTL BOTH EYES SCH (22:40)
[2022-12-03] MEDS: LATANOPROST 0.005% OPHTH DROPS 2.5 ML BTL BOTH EYES SCH (22:40)
[2022-12-03 23:13] LABS: Glucose,Whole Blood 149 mg/dL (70-110)
[2022-12-04 06:03] LABS: Glucose,Whole Blood 124 mg/dL (70-110)
[2022-12-04] MEDS: LEVOTHYROXINE 50 MCG TAB PO SCH (06:34)
[2022-12-04] MEDS ORDERED: GLIMEPIRIDE 1 MG TAB PO SCH (07:30)
[2022-12-04] MEDS ORDERED: metFORMIN 500 MG TAB PO SCH ×2 (07:30→17:30)
[2022-12-04] MEDS: ASPIRIN 81 MG PO SCH (08:43)
[2022-12-04] MEDS: CHOLECALCIFEROL 25 MCG (1000 IU) TABLET PO SCH (08:43)
[2022-12-04] MEDS: DORZOLAMIDE-TIMOLOL 2.23%/0.68 10ML BTL BOTH EYES SCH ×2 (08:44→19:49)
[2022-12-04] MEDS ORDERED: ASPIRIN 325 MG TAB PO SCH (09:00)
[2022-12-04] MEDS ORDERED: ASPIRIN 81 MG PO SCH (09:00)
[2022-12-04 09:23] LABS: Chol/HDL Ratio 3.63 Ratio; LDL Cholesterol,Calculated 95.3 mg/dL (0.0-131.0); VLDL Calculation 16.34 mg/dL (5.00-40.00)
--- NOTE | 2022-12-04 10:43 | P.PN ---
Subjective HISTORY OF PRESENT ILLNESS: This is a 72-year-old male with a past medical history significant for obstructive sleep apnea, diabetes, and hyperlipidemia. Patient does not follow with a mineral mixer. We have been asked to see the patient in consultation for chest pain. Patient examined at the bedside. Patient states he began having chest pain yesterday around 10 PM as he was getting ready for bed. He states that he decided to go to sleep anyways. He states he woke up in the middle the night and continued to have discomfort so he took some Tums and went back to sleep. He states when he woke up this morning he continued to have chest pain so he came to the emergency room for further evaluation. The patient states his pain was in the middle of his chest and he describes it as an elephant sitting on his chest. He denied any radiation of the pain. However at the time of examination he is complaining of some lower back pain. He denied feeling short of breath. He denied dizziness or lightheadedness. He denied any nausea or vomiting. He states the pain went away on its own this morning while he was in the emergency room. He states he received 3 aspirin but his pain had already resolved at that time. He is a nonsmoker. He denies a family history of coronary artery disease. * EKG reveals sinus mechanism with T-wave inversions in lead 3 * Chest xray negative for acute process * Laboratory data: WBC 6.0. Hemoglobin 14.0. Platelet count 152. Sodium 136. BUN 23. Creatinine 1.33. Troponin negative 1. * Current home cardiac medications include aspirin 81 mg daily, TriCor 160 mg at night, simvastatin 10 mg at night * Most recent echocardiogram obtained in October 2016 revealed ejection fraction 55-60%, trace to mild mitral regurgitation, trace tricuspid regurgitation. * Patient underwent stress testing in October 2016 which was negative for ischemia 12/04/2022 Patient examined this morning at the bedside. Patient denies shortness of breath. He denies any further episodes of chest pain or pressure. Patient's troponins are negative 3. Vital signs this morning are pending. PHYSICAL EXAM: VITAL SIGNS: Reviewed. GENERAL: Well-developed in no acute distress. HEENT: Head is normocephalic. Pupils are equal, round. Sclerae anicteric. Mucous membranes of the mouth are moist. Neck supple. No JVD or thyromegaly LUNGS: Respirations even and unlabored. Lungs essentially clear to auscultation bilaterally. HEART: Regular rate and rhythm. S1 and S2 heard. ABDOMEN: Soft. Nondistended. Nontender. EXTREMITIES: Normal range of motion. No clubbing or cyanosis. Peripheral pulses intact. No lower extremity edema NEUROLOGIC: Awake and alert. Oriented x 3. ASSESSMENT: Chest pain, troponins negative 3 Hyperlipidemia Diabetes, hemoglobin A1c 7.3 Obstructive sleep apnea with CPAP use PLAN: Continue current cardiac medications 2-D echocardiogram has been ordered. Await results Patient to undergo stress echocardiogram today If stress echo is negative and 2-D echo does not reveal any significant abnormal ities, the patient may be discharged home today from a cardiac standpoint Nurse practitioner note has been reviewed by physician. Signing provider agrees with the documented findings, assessment, and plan of care. Objective - Vital Signs Vital signs: Vital Signs Temp 98.0 F 12/04/22 07:00 Pulse 72 12/04/22 08:00 Resp 16 12/04/22 08:00 BP 94/59 12/04/22 07:00 Pulse Ox 98 12/04/22 08:52 FiO2 Intake & Output 12/03/22 12/04/22 12/04/22 18:59 06:59 18:59 Weight 65.771 kg 65.771 kg Other: Voiding Method Toilet Toilet # Voids 2 2 - Labs CBC & Chem 7: 12/03/22 10:52 12/03/22 10:52 Labs: Abnormal Lab Results - Last 24 Hours (Table) 12/03/22 12/03/22 12/03/22 Range/Units 10:52 17:30 23:11 Sodium 136 L (137-145) mmol/L BUN 23 H (9-20) mg/dL Creatinine 1.33 H (0.66-1.25) mg/dL Glucose 210 H (74-99) mg/dL POC Glucose (mg/dL) 149 H (70-110) mg/dL Hemoglobin A1c 7.3 H (<=6.0) % Alkaline Phosphatase <20 L (38-126) U/L 12/04/22 Range/Units 06:02 Sodium (137-145) mmol/L BUN (9-20) mg/dL Creatinine (0.66-1.25) mg/dL Glucose (74-99) mg/dL POC Glucose (mg/dL) 124 H (70-110) mg/dL Hemoglobin A1c (<=6.0) % Alkaline Phosphatase (38-126) U/L
[2022-12-04] MEDS ORDERED: RX INFO: IV CONTRAST WAS GIVEN 1 EACH MISC MISCELLANE PRN (12:10)
[2022-12-04] MEDS ORDERED: SODIUM CHLORIDE 0.9% 1,000 ML IV SCH (12:15)
[2022-12-04 12:29] LABS: Glucose,Whole Blood 135 mg/dL (70-110)
--- NOTE | 2022-12-04 14:55 | CA ---
Stress Echo Report Ulises Dominique Age: 72 Gender: M : 1950 Exam Date: 12/04/2022 11:00 Exam Location: [facility] Ht (in): 62 Wt (lb): 145 Ordering Physician: Melida Frausto Referring Physician: [id number] Chrome Cleaner: Tonia Hassan RDCS Technologist Procedure CPT: Indication: CP ICD-9 Codes: Rhythm: Patient History: CHEST PAIN, DIABETES, ELEVATED CHOLESTEROL LEVELS, FAMILY HX OF HEART DISEASE Cardiac Medications: Medications in past 24 hours: Contrast: Stress Results Protocol: Edgardo Total dose(mL): Exercise Duration (min:sec): 9:[address] Depression (mm): Angina Score: Childs Score: METS: 10.5 Resting HR: 70 Resting BP: 101 / 51 Peak HR: 131 Peak BP: 154 / 78 Max Predicted HR: 147 89 % Max Predicted HR Target HR: 125 Double Product: Stress Summary: The patient's target heart rate was achieved The hemodynamic response to exercise was normal BP Response: Reason for Termination: MAX EXERTION/TARGET HR Cardiac Symptoms: DIFFICULTY IN BREATHING ECG Analysis Resting ECG: Normal sinus rhythm, normal ECG Stress ECG: No abnormal ST/T wave changes with exercise Arrhythmia: None Echo Analysis Resting Echo: Normal resting echocardiogram. Peak Echo Analysis: Inferior and inferolateral hypokinesis MEASUREMENTS (Male/Female) Normal Values CONCLUSIONS 1. Good exercise tolerance with normal electrocardiographic response to exercise 2. Abnormal stress echocardiogram with evidence of inferior and inferolateral ischemia Dr. Missy Redmond MD (Electronically Signed) Final Date: 04 December 2022 14:54
[2022-12-04] MEDS ORDERED: ALPRAZolam 0.5 MG TAB PO PRN (15:00)
[2022-12-04] MEDS ORDERED: NITROGLYCERIN SL TABS 0.4 MG TAB SUBLINGUAL PRN (15:00)
[2022-12-04] MEDS ORDERED: ALPRAZolam 0.25 MG TAB PO PRN (15:00)
[2022-12-04] MEDS ORDERED: DEXTROSE 50% SYRINGE 50 ML IVP PRN ×2 (17:09)
--- NOTE | 2022-12-04 17:26 | P.HPIM ---
History of Present Illness H&P Date: 12/04/22 Chief Complaint: Chest pain His is a pleasant 72-year-old gentleman with past medical history significant for diabetes mellitus, obstructive sleep apnea and uses CPAP ,hypothyroidism, hyperlipidemia, kidney stones, cataracts, glaucoma, and multiple other medical issues presented to the ER with complaints of midsternal chest pressure radiating through to back accompanied by mild dizziness. States Thursday night he went out for [place] dinner, later that night, prior to bed began having some mild chest pressure, proceeded to sleep. Patient was awakened early in the morning with continued radiating midsternal chest pressure through to back, attempted taking Tums, with short resolution, reoccurred with worsening chest pressure, proceeded to the ER. Denies diaphoresis, palpitations or shortness of breath .Reports no prior event. Cardiology reports patient underwent stress testing in 2017 reporting negative for ischemia. Chest x-ray reported no acute cardiopulmonary disease/process. Troponin is negative 3. EKG reviewed per cardiology. Hematology and coagulation panels unremarkable. Sodium 136 potassium 4.3 bicarb 23 BUN 23, creatinine 1.33 (baseline around 1.4), magnesium 1.9. Triglycerides 81.7, cholesterol 154, LDL 95, HDL 42.4. Blood sugars controlled, Hemoglobin A1c 7.3. Currently denies any chest pain, palpitations or shortness of breath. Blood pressures soft. Review of Systems ROS Statement: Those systems with pertinent positive or pertinent negative responses have been documented in the HPI. ROS Other: All systems not noted in ROS Statement are negative. Past Medical History Past Medical History: Diabetes Mellitus, Eye Disorder, Hyperlipidemia, Thyroid Disorder Additional Past Medical History / Comment(s): hx kidney stones, CATARACTS, GLAUCOMA History of Any Multi-Drug Resistant Organisms: None Reported Past Surgical History: No Surgical Hx Reported Additional Past Surgical History / Comment(s): 08/14/16 LEFT and right EYE CATARACT SX WITH ISTENT Past Anesthesia/Blood Transfusion Reactions: No Reported Reaction Past Psychological History: No Psychological Hx Reported Smoking Status: Never smoker Past Alcohol Use History: Rare Past Drug Use History: None Reported - Past Family History Sister(s) Family Medical History: Cancer Mother Family Medical History: Cancer Medications and Allergies Home Medications Medication Instructions Recorded Confirmed Type Aspirin [Adult Low Dose Aspirin EC] 81 mg PO DAILY 08/13/15 12/03/22 History Fenofibrate [Lofibra] 160 mg PO HS 08/13/15 12/03/22 History Simvastatin [Zocor] 10 mg PO HS 08/13/15 12/03/22 History metFORMIN HCL [Glucophage] 1,000 mg PO W/BRKFST 08/13/15 12/03/22 History Cholecalciferol [Vitamin D3 (25 50 mcg PO DAILY 12/03/22 12/03/22 History Mcg = 1000 Iu)] Dorzolamide-Timol 2.23%/0.68% 1 drop BOTH EYES BID 12/03/22 12/03/22 History [Cosopt] Glimepiride [Amaryl] 1 mg PO W/BRKFST 12/03/22 12/03/22 History Latanoprost [Latanoprost 0.005%] 1 drop BOTH EYES HS 12/03/22 12/03/22 History Levothyroxine Sodium [Synthroid] 50 mcg PO DAILY 12/03/22 12/03/22 History metFORMIN HCL 500 mg PO W/SUPPER 12/03/22 12/03/22 History Allergies Allergy/AdvReac Type Severity Reaction Status Date / Time No Known Allergies Allergy Verified 12/03/22 13:28 Physical Exam Vitals: Vital Signs Temp Pulse Pulse Resp BP BP Pulse Ox 12/04/22 08:52 98 12/04/22 08:00 72 16 12/04/22 07:00 98.0 F 72 16 94/59 96 12/04/22 02:30 97.3 F L 53 L 16 131/64 99 12/04/22 01:53 65 12/03/22 21:58 65 18 12/03/22 19:35 97.5 F L 65 15 116/70 100 12/03/22 18:02 97.6 F 75 16 122/68 98 12/03/22 16:11 75 15 119/67 93 L 12/03/22 14:13 64 17 115/74 97 Intake and Output 12/03/22 12/04/22 12/04/22 22:59 06:59 14:59 Other: Voiding Method Toilet Toilet # Voids 2 2 2 Weight 65.771 kg PHYSICAL EXAM: VITAL SIGNS: [As above] GENERAL: Sitting up in bed, no acute distress HEENT: Normocephalic, Conjunctivae normal. eyes normal. NECK: Supple, No JVD. No thyroid enlargement. No LNs CARDIOVASCULAR: S1, S2 regular. No murmur RESPIRATION: Unlabored, Breath sounds diminished in the bases. No rhonchi or crackles. No bronchial breathing. ABDOMEN: Soft, nondistended, nontender . No guarding. no masses palpable. No ascites, No hepatosplenomegaly.Bowel sounds heard. LEGS: No edema. no swelling PSYCHIATRY: Alert and oriented X3, mood and affect normal. NERVOUS SYSTEM: Cranial N 2-12 grossly normal. No focal deficits. Strength and sensation grossly intact.. Skin: Warm and dry, no rash. Results CBC & Chem 7: 12/03/22 10:52 12/03/22 10:52 Labs: Abnormal Lab Results - Last 24 Hours (Table) 12/03/22 12/03/22 12/04/22 Range/Units 17:30 23:11 06:02 POC Glucose (mg/dL) 149 H 124 H (70-110) mg/dL Hemoglobin A1c 7.3 H (<=6.0) % 12/04/22 Range/Units 12:25 POC Glucose (mg/dL) 135 H (70-110) mg/dL Hemoglobin A1c (<=6.0) % Thrombosis Risk Factor Assmnt - Choose All That Apply Any of the Below Risk Factors Present?: Yes Each Factor Represents 1 point: Obesity (BMI >25) Other Risk Factors: Yes Each Risk Factor Represents 2 Points: Age 61-74 years Other congenital or acquired thrombophilia - If yes, enter type in comment: No Thrombosis Risk Factor Assessment Total Risk Factor Score: 3 Thrombosis Risk Factor Assessment Level: Moderate Risk Assessment and Plan Assessment: Acute chest pain, troponin is negative 3, positive stress test, cardiac catheterization pending Chronic renal failure, stage III, baseline creatinine 1.4 Obstructive sleep apnea, uses CPAP Diabetes mellitus, A1c 7.3 Hyperlipidemia Hypothyroidism Glaucoma Plan: Continue on current medication regime ,monitoring and symptomatic treatment. Patient is scheduled for 2-D echo and stress echo. NovoLog sliding scale ordered. Positive stress test reported, patient is scheduled for cardiac catheterization in the morning . Gentle IV fluid hydration initiated with normal saline at 60 MLS per hour .Close monitoring of of renal function with BMP ordered for am. Anticoagulation as per cardiology. The impression and plan of care has been dictated as directed. : I performed a history and examination of this patient, discussed the same with the dictator. I agree with the dictator's note ,documented as a scribe. Any additional findings or plans will be noted.
[2022-12-04 17:35] LABS: Glucose,Whole Blood 153 mg/dL (70-110)
--- NOTE | 2022-12-04 17:44 | CA ---
Transthoracic Echo Report Name: Ulises Dominique Age: 72 Gender: M : 1950 Exam Date: 12/04/2022 11:22 Exam Location: [facility] Ht (in): 62 Wt (lb): 145 Ordering Physician: Melida Frausto Attending/Referring Phys: [id number], [employer] Tonia Hassan RDCS Procedure CPT: Indications: LV function, chest pain Cardiac Hx: Technical Quality: Good Contrast 1: Total Dose (mL): Contrast 2: Total Dose (mL): MEASUREMENTS (Male / Female) Normal Values 2D ECHO LV Diastolic Diameter PLAX 4.4 cm 4.2 - 5.9 / 3.9 - 5.3 cm LV Systolic Diameter PLAX 2.8 cm IVS Diastolic Thickness 1.3 cm 0.6 - 1.0 / 0.6 - 0.9 cm LVPW Diastolic Thickness 1.2 cm 0.6 - 1.0 / 0.6 - 0.9 cm LV Relative Wall Thickness 0.6 RV Internal Dim ED PLAX 3.2 cm LA Systolic Diameter LX 3.4 cm 3.0 - 4.0 / 2.7 - 3.8 cm LV Diastolic Volume MOD 4C 56.7 cm??? LV Systolic Volume MOD 4C 28.6 cm??? LV Ejection Fraction MOD 4C 49.6 % LV Cardiac Index MOD 4C 1166.7 cm???/min???m??? LV Diastolic Length 4C 8.1 cm LV Systolic Length 4C 6.2 cm LV Diastolic Volume MOD 2C 98.8 cm??? LV Systolic Volume MOD 2C 35.1 cm??? LV Ejection Fraction MOD 2C 64.5 % LV Cardiac Index MOD 2C 2641.7 cm???/min???m??? LV Diastolic Length 2C 7.6 cm LV Systolic Length 2C 6.2 cm LA Volume 32.4 cm??? 18 - 58 / 22 - 52 cm??? M-MODE Aortic Root Diameter MM 3.5 cm MV E Point Septal Separation 0.6 cm AV Cusp Separation MM 2.3 cm DOPPLER AV Peak Velocity 105.7 cm/s AV Peak Gradient 4.5 mmHg AI Peak Velocity 299.5 cm/s AI Peak Gradient 35.9 mmHg AI Pressure Half Time 1025.9 ms MV Area PHT 3.0 cm??? Mitral E Point Velocity 63.7 cm/s Mitral A Point Velocity 64.8 cm/s Mitral E to A Ratio 1.0 MV Deceleration Time 254.2 ms MV E' Velocity 7.7 cm/s Mitral E to MV E' Ratio 8.3 TR Peak Velocity 207.4 cm/s TR Peak Gradient 17.2 mmHg Right Ventricular Systolic Press 22.2 mmHg FINDINGS Left Ventricle Left ventricular ejection fraction is estimated at 55-60 %. Left ventricular cavity size normal. Mild concentric left ventricular hypertrophy.normal left ventricular wall motion. Right Ventricle Normal right ventricular size. Right ventricular systolic pressure within normal limits. Right Atrium Normal right atrial size. Left Atrium Normal left atrial size. Mitral Valve Structurally normal mitral valve. mild mitral regurgitation. Aortic Valve Trileaflet aortic valve. Mild aortic regurgitation. Tricuspid Valve Structurally normal tricuspid valve. mild tricuspid regurgitation. Pulmonic Valve Structurally normal pulmonic valve. Trace pulmonic regurgitation. Pericardium Normal pericardium. No pericardial effusion. Aorta Normal size aortic root and proximal ascending aorta. CONCLUSIONS 1. Normal left ventricle size and systolic function 2. Mild mitral, aortic and tricuspid regurgitation. Previewed by: Dr. Missy Redmond MD (Electronically Signed) Final Date: 04 December 2022 17:43
[2022-12-04] MEDS: INSULIN ASPART (NovoLOG) 100 UNIT/ML VIAL SQ SCH ×2 (18:57→21:19)
[2022-12-04] MEDS: SODIUM CHLORIDE 0.9% 1,000 ML IV SCH (18:59)
[2022-12-04] MEDS: ATORVASTATIN 20 MG TAB PO SCH (19:50)
[2022-12-04] MEDS: FENOFIBRATE 160 MG TAB PO SCH (19:50)
[2022-12-04] MEDS: LATANOPROST 0.005% OPHTH DROPS 2.5 ML BTL BOTH EYES SCH (19:50)
[2022-12-04 20:34] LABS: Glucose,Whole Blood 158 mg/dL (70-110)
[2022-12-04] MEDS ORDERED: SODIUM CHLORIDE 0.9% 1,000 ML in EMPTY BAG 1 BAG IV SCH (23:00)
[2022-12-05] MEDS ORDERED: ATORVASTATIN 80 MG TAB PO ONE (05:00)
[2022-12-05] MEDS ORDERED: ASPIRIN 325 MG TAB PO ONE (05:00)
[2022-12-05] MEDS: LEVOTHYROXINE 50 MCG TAB PO SCH (05:15)
[2022-12-05 06:11] LABS: Glucose,Whole Blood 139 mg/dL (70-110)
[2022-12-05] MEDS: INSULIN ASPART (NovoLOG) 100 UNIT/ML VIAL SQ SCH ×2 (06:12→13:57)
[2022-12-05] MEDS ORDERED: HEPARIN SODIUM,PORCINE (1 ML) 2,500 UNIT in SODIUM CHLORIDE 0.9% 250 ML IRRIGATION PRN (07:00)
[2022-12-05] MEDS ORDERED: HEPARIN SODIUM,PORCINE 10,000 UNIT in SODIUM CHLORIDE 0.9% 1,000 ML IRRIGATION PRN (07:00)
[2022-12-05 07:09] LABS: African American GFR (CKD) 59 (>60 ml/min/1.73 sqM); Anion Gap 7 mmol/L; Blood Urea Nitrogen 19 mg/dL (9-20); Calcium 8.4 mg/dL (8.4-10.2); Carbon Dioxide 20 mmol/L (22-30); Chloride 108 mmol/L (98-107); Glucose 141 mg/dL (74-99); Non-African American GFR(CKD) 51 (>60 ml/min/1.73 sqM); Potassium 4.2 mmol/L (3.5-5.1); Sodium 135 mmol/L (137-145)
[2022-12-05] MEDS ORDERED: VERAPAMIL 2.5 MG/ML 2 ML AMP ONE (08:18)
[2022-12-05] MEDS ORDERED: fentaNYL (PF) 50 MCG/ML 2 ML AMP ONE (08:18)
[2022-12-05] MEDS ORDERED: HEPARIN SODIUM 1,000 UN/ML (10ML VL) ONE (08:18)
[2022-12-05] MEDS ORDERED: fentaNYL (PF) 50 MCG/ML 2 ML AMP IVP ONE (09:12)
[2022-12-05] MEDS ORDERED: SODIUM CHLORIDE 0.9% 1,000 ML IV ONE (09:12)
[2022-12-05] MEDS ORDERED: LIDOCAINE 1% INJ 10MG/ML (5 ML VIAL-PF) SQ ONE (09:14)
[2022-12-05] MEDS ORDERED: VERAPAMIL SYRINGE (5 MG/10 ML) INTRAARTER ONE (09:17)
[2022-12-05] MEDS: HEPARIN SODIUM 1,000 UN/ML (10ML VL) IVP ONE ×2 (09:20→09:25)
[2022-12-05] MEDS ORDERED: IOPAMIDOL-370 100ML BTL INJ ONE (09:38)
[2022-12-05] MEDS ORDERED: RX INFO: IV CONTRAST WAS GIVEN 1 EACH MISC MISCELLANE PRN (09:47)
--- NOTE | 2022-12-05 09:55 | P.CARDCATH ---
Date of Procedure: 12/05/22 Description of Procedure: Cardiac Catheterization: The patient is a 72-year-old male with known history of hyperlipidemia and diabetes who presented with symptoms of chest discomfort, had an abnormal stress echocardiogram. Recommendations were made regarding cardiac catheterization, the risks and the complications were discussed with the patient who is in full understanding and agreement. Procedure Description: Patient was brought to laboratory [facility] in fasting semi-sedated state after receiving Fentanyl and Benadryl achieiving moderate conscious sedated state. Using Xylocaine Anesthesia and Seldinger technique, a 6-[place] sheath was introduced in the right radial artery . Subsequently, selective coronary angiography was performed using a 5-[place] 3.5 bend Abbi catheter. Multiple views of the coronary artery including hemiaxial views were obtained. The 5-[place] pigtail catheter was used to cross the aortic valve and LVEDP was calculated. After removing the catheters a 6-[place] 3.75 EBU guiding catheter was introduced and after cannulating the left main an Omni Doppler flow wire was introduced in the LAD and IFR was measured at 1.02. Following that, catheter and sheath were removed. Hemostasis was obtained with deployment of TR band . There was no immediate complication. Patient was retu rned to room in stable condition. Of note, the patient received a total of 5000 units of intravenous heparin as well as intra-arterial verapamil. Findings: Left main: This is a large size vessel, bifurcating into LAD and left circumflex, left main has no obstructive disease LAD: This is a large size vessel, reaching to the apex, giving rise to 2 diagonal branch of small caliber. In the mid segment at the takeoff of the second diagonal branch there is a 50-60% tubular lesion and there is another 30- 40% plaque in the mid distal area. Left circumflex: This is a nondominant vessel giving rise to 3 obtuse marginal branch the first one is the largest and caliber. The first obtuse marginal branch has a 40% plaque proximally. The second obtuse marginal branch this morning caliber and has diffuse intimal disease. The rest of the vessel has no high-grade stenosis RCA: This is a dominant vessel moderate in caliber bifurcating into PDA and PLV. The midright coronary artery has tubular lesion of about 30-40%. Left Ventriculogram: Not performed Hemodynamics: There was no gradient across the aortic valve, LVEDP was 16-20 mmHg Conclusion: 1. Moderate to significant disease in the mid LAD 2. Mild to moderate disease in the RCA and left circumflex 3. Right dominance 4. Nonhemodynamically significant IFR in the LAD Recommendations: The patient will continue with aggressive coronary risk modifications, there is no indication for percutaneous revascularization at this time. The findings and the recommendations were discussed with the patient and the family and they were in full understanding and agreement. Duration of sedation is 28 minutes.
[2022-12-05] MEDS ORDERED: SODIUM CHLORIDE 0.9% 1,000 ML IV SCH (10:00)
--- NOTE | 2022-12-05 10:19 | P.DS ---
Providers Date of admission: 12/03/22 13:22 Expected date of discharge: 12/05/22 Attending physician: Mitch Ashley Consults: 12/03/22 13:20 Consult Physician Urgent Consulting Provider: [facility] Consult Reason/Comments: Chest pain Do you want consulting provider notified?: Yes Primary care physician: Mitch [facility] Course: Final Diagnoses: Acute chest pain, troponin is negative 3, positive stress test, cardiac catheterization reporting moderate to significant disease in mid LAD, mild to moderate disease in the RCA and left circumflex, right dominance, non- hemodynamically significant IFR in the LAD. Cardiology recommending aggressive coronary risk modifications, no indication for percutaneous revascularization at this time. Chronic renal failure, stage III, baseline creatinine 1.4 Obstructive sleep apnea, uses CPAP Diabetes mellitus, A1c 7.3 Hyperlipidemia Hypothyroidism Glaucoma Hospital course:Chief Complaint: Chest pain THis is a pleasant 72-year-old gentleman with past medical history significant for diabetes mellitus, obstructive sleep apnea and uses CPAP ,hypothyroidism, hyperlipidemia, kidney stones, cataracts, glaucoma, and multiple other medical issues presented to the ER with complaints of midsternal chest pressure radiating through to back accompanied by mild dizziness. States Thursday night he went out for [place] dinner, later that night, prior to bed began having some mild chest pressure, proceeded to sleep. Patient was awakened early in the morning with continued radiating midsternal chest pressure through to back, attempted taking Tums, with short resolution, reoccurred with worsening chest pressure, proceeded to the ER. Denies diaphoresis, palpitations or shortness of breath .Reports no prior event. Cardiology reports patient underwent stress testing in 2017 reporting negative for ischemia. Chest x-ray reported no acute cardiopulmonary disease/process. Troponin is negative 3. EKG reviewed per cardiology. Hematology and coagulation panels unremarkable. Sodium 136 potassium 4.3 bicarb 23 BUN 23, creatinine 1.33 (baseline around 1.4), magnesium 1.9. Triglycerides 81.7, cholesterol 154, LDL 95, HDL 42.4. Blood sugars controlled, Hemoglobin A1c 7.3. Currently denies any chest pain, palpitations or shortness of breath. Blood pressures soft. Patient is scheduled for 2-D echo and stress echo. NovoLog sliding scale ordered. Positive stress test reported, patient is scheduled for cardiac catheterization in the morning . Gentle IV fluid hydration initiated with normal saline at 60 MLS per hour .Close monitoring of of renal function with BMP ordered for am. Anticoagulation as per cardiology. Status post cardiac catheterization reporting moderate to significant disease in mid LAD, mild to moderate disease in the RCA and left circumflex, right dominance, non-hemodynamically significant IFR in the LAD. Cardiology recommending aggressive coronary risk modifications, no indication for percutaneous revascularization at this time. Denies chest pain, palpitations or shortness of breath. Vital signs stable. Significant clinical improvement. Patient will be discharged home today in stable condition with guarded prognosis pending final DC recommendations and clearance per cardiology. The impression and plan of care has been dictated as directed. : I performed a history and examination of this patient, discussed the same with the dictator. I agree with the dictator's note ,documented as a scribe. Any additional findings or plans will be noted. Patient Condition at Discharge: Stable Plan - Discharge Summary Discharge Rx Participant: No New Discharge Prescriptions: New Atorvastatin [Lipitor] 40 mg PO HS #30 tab Continue metFORMIN HCL [Glucophage] 1,000 mg PO W/BRKFST Fenofibrate [Lofibra] 160 mg PO HS Aspirin [Adult Low Dose Aspirin EC] 81 mg PO DAILY Cholecalciferol [Vitamin D3 (25 Mcg = 1000 Iu)] 50 mcg PO DAILY Latanoprost [Latanoprost 0.005%] 1 drop BOTH EYES HS Dorzolamide-Timol 2.23%/0.68% [Cosopt] 1 drop BOTH EYES BID Glimepiride [Amaryl] 1 mg PO W/BRKFST Levothyroxine Sodium [Synthroid] 50 mcg PO DAILY metFORMIN HCL 500 mg PO W/SUPPER #0 Discontinued Simvastatin [Zocor] 10 mg PO HS Discharge Medication List Aspirin [Adult Low Dose Aspirin EC] 81 mg PO DAILY 08/13/15 [History] Fenofibrate [Lofibra] 160 mg PO HS 08/13/15 [History] metFORMIN HCL [Glucophage] 1,000 mg PO W/BRKFST 08/13/15 [History] Cholecalciferol [Vitamin D3 (25 Mcg = 1000 Iu)] 50 mcg PO DAILY 12/03/22 [History] Dorzolamide-Timol 2.23%/0.68% [Cosopt] 1 drop BOTH EYES BID 12/03/22 [History] Glimepiride [Amaryl] 1 mg PO W/BRKFST 12/03/22 [History] Latanoprost [Latanoprost 0.005%] 1 drop BOTH EYES HS 12/03/22 [History] Levothyroxine Sodium [Synthroid] 50 mcg PO DAILY 12/03/22 [History] Atorvastatin [Lipitor] 40 mg PO HS #30 tab 12/05/22 [Rx] metFORMIN HCL 500 mg PO W/SUPPER #0 12/05/22 [Rx] Follow up Appointment(s)/Referral(s): Missy Redmond MD [STAFF PHYSICIAN] - 1 Week Mitch Ashley DO [Primary Care Provider] - 3 Days Ambulatory/Diagnostic Orders: Basic Metabolic Panel [LAB.AMB] Time Frame: 3 Days, Location: None Selected
[2022-12-05] MEDS: CHOLECALCIFEROL 25 MCG (1000 IU) TABLET PO SCH (10:54)
[2022-12-05] MEDS: DORZOLAMIDE-TIMOLOL 2.23%/0.68 10ML BTL BOTH EYES SCH (10:54)
[2022-12-05] MEDS: SODIUM CHLORIDE 0.9% 1,000 ML IV SCH (10:55)
[2022-12-05] MEDS: ASPIRIN 81 MG PO SCH (10:55)
[2022-12-05 12:17] LABS: Glucose,Whole Blood 213 mg/dL (70-110)
[2022-12-05 14:29] VITALS: PULSE 72; RESP 20; TEMP 97.6
[2022-12-05 16:21] VITALS: BP 106/67
[2022-12-06] MEDS ORDERED: ATORVASTATIN 40 MG TAB PO SCH (21:00)
== END 2022-12-05 17:03 | disposition home or self-care (01) ==
LOC: EC 10:41 → 6NMEDSUR 13:22
PROVIDERS: ADMIT Family Medicine; ATTEND Family Medicine
DX: R07.89 Other chest pain (principal); E78.5 Hyperlipidemia, unspecified; G47.33 Obstructive sleep apnea (adult) (pediatric); E03.9 Hypothyroidism, unspecified; N18.30 Chronic kidney disease, stage 3 unspecified; E11.22 Type 2 diabetes mellitus with diabetic chronic kidney disease; H40.9 Unspecified glaucoma; Z79.82 Long term (current) use of aspirin; Z79.890 Hormone replacement therapy; Z79.84 Long term (current) use of oral hypoglycemic drugs; Z79.899 Other long term (current) drug therapy; Z82.49 Family history of ischemic heart disease and other diseases of the circulatory system
CPT/HCPCS: 99285; 36415; 94760; 93005; 93306; 93351; 93458; 93799; 80061; 80053; 80048; 83735; 84484; 85025; 85610; 85730; 83036; 71046; G0378 ×3; C1887; C1769 ×2; C1894; J2001; J3010; J1644; Q9967

== ENCOUNTER → 2023-03-04 | Outpatient (CLI) | payer MEDICARE, OTHER ==
--- NOTE | 2023-03-04 15:40 | XR ---
EXAMINATION TYPE: XR abdomen 2V DATE OF EXAM: 03/04/2023 COMPARISON: KUB 09/26/2021 HISTORY: Renal calculi TECHNIQUE: Single supine KUB image of the abdomen is obtained FINDINGS: Small bowel demonstrates no evidence for dilatation or air fluid levels. Gas and fecal material is seen in non-distended colon. No convincing evidence for pneumoperitoneum. Stable bilateral pelvic phleboliths. There are 2 adjacent left renal calculi measuring 1.2 and 0.9 cm . Additional 2 smaller left renal calculi. No definitive right renal calculi. The osseous structures are intact. Dextrocurvature of the lumbar spine with apex at L2. IMPRESSION: Approximately 4 left renal calculi with largest measuring 1.2 cm.
== END | disposition home or self-care (01) ==
LOC: RADXRMAIN 15:09
PROVIDERS: ATTEND Family Medicine
DX: N20.0 Calculus of kidney (principal)
CPT/HCPCS: 74019

== ENCOUNTER → 2023-06-26 | Outpatient (CLI) | payer MEDICARE, OTHER ==
[2023-06-26 15:20] LABS: ALT 13 U/L (10-49); AST 30 U/L (14-35); Alkaline Phosphatase 33 U/L (41-126); BUN/Creat Ratio 10.62 Ratio (12.00-20.00); Blood Urea Nitrogen 25.5 mg/dL (9.0-27.0); Calcium 9.3 mg/dL (8.7-10.3); Chloride 106 mmol/L (96-109); Chol/HDL Ratio 3.61 Ratio; Globulin 2.5 g/dL (1.6-3.3); Glucose 94 mg/dL (70-110); LDL Cholesterol,Calculated 60.9 mg/dL (0.0-131.0); Potassium 4.5 mmol/L (3.5-5.5); Sodium 139 mmol/L (135-145); Total Bilirubin 0.4 mg/dL (0.3-1.2); Total Protein 6.5 g/dL (6.2-8.2)
== END | disposition home or self-care (01) ==
LOC: LABWHC1 12:06
PROVIDERS: ATTEND Internal Medicine Interventional Cardiology
DX: I10 Essential (primary) hypertension (principal); E78.2 Mixed hyperlipidemia
CPT/HCPCS: 36415; 80053; 80061

== ENCOUNTER 2023-07-08 06:30 | Day surgery (SDC) | payer MEDICARE, OTHER ==
[2023-07-06 09:43] VITALS: BMI 37.7
[~2023-07-08 06:30] MED LIST changes: +LIDOCAINE 1% (10MG/ML) FOR IV START INTRADERMA PRN; -MOXIFLOXACIN HCL 0.5% DROPS 3 ML BTL OP ONE; -TETRACAINE 0.5% OPHTH (PF) DROPS 4 ML BTL OP ONE; -TIMOLOL 0.5% OPHTH SOLN (PF) 0.2 ML DROPERETTE OP ONE
[2023-07-08] MEDS ORDERED: ONDANSETRON 4 MG/2 ML VIAL IVP PRN (07:00)
[2023-07-08] MEDS: LACTATED RINGERS 1,000 ML IV ONE (07:05)
[2023-07-08 07:30] VITALS: TEMP 98
[2023-07-08 07:30] LABS: Glucose,Whole Blood 115 mg/dL (70-110)
[2023-07-08] MEDS ORDERED: PROPOFOL 10 MG/ML 20 ML VIAL IV ONE (07:34)
--- NOTE | 2023-07-08 07:43 | P.GSHP ---
History of Present Illness H&P Date: 07/08/23 CHIEF COMPLAINT: Colon screen HISTORY OF PRESENT ILLNESS: The patient is a 72-year-old male who presents for colon screen. Lower endoscopy was offered for further evaluation and management. PAST MEDICAL HISTORY: Please see list. PAST SURGICAL HISTORY: Please see list. MEDICATIONS: Please see list. ALLERGIES: Please see list. SOCIAL HISTORY: No illicit drug use FAMILY HISTORY: No reports of Crohn disease or ulcerative colitis. REVIEW OF ORGAN SYSTEMS: CONSTITUTIONAL: No reports of fevers or chills. PHYSICAL EXAM: VITAL SIGNS: Stable GENERAL: Well-developed pleasant in no acute distress. HEENT: No scleral icterus. Extraocular movements grossly intact. Moist buccal mucosa. NECK: Supple without lymphadenopathy. CHEST: Unlabored respirations. Equal bilateral excursions. CARDIOVASCULAR: Regular rate and rhythm. Distal 2+ pulses. ABDOMEN: Soft, nontender, nondistended. MUSCULOSKELETAL: No clubbing, cyanosis, or edema. ASSESSMENT: 1. Colon screen. PLAN: 1. Recommend proceeding with a lower endoscopy Past Medical History Past Medical History: Chest Pain / Angina, Diabetes Mellitus, Eye Disorder, Hyperlipidemia, Sleep Apnea/CPAP/BIPAP, Thyroid Disorder Additional Past Medical History / Comment(s): hx kidney stones, CATARACTS, GLAUCOMA,10/24 chest pain, cpap History of Any Multi-Drug Resistant Organisms: None Reported Past Surgical History: Heart Catheterization Additional Past Surgical History / Comment(s): 08/14/16 LEFT and right EYE CATARACT SX WITH ISTENT, Past Anesthesia/Blood Transfusion Reactions: No Reported Reaction Additional Past Anesthesia/Blood Transfusion Reaction / Comment(s): no blood transfusion Smoking Status: Never smoker - Past Family History Sister(s) Family Medical History: Cancer Additional Family Medical History / Comment(s): breast Mother Family Medical History: Cancer Additional Family Medical History / Comment(s): leg Medications and Allergies Home Medications Medication Instructions Recorded Confirmed Type Aspirin [Adult Low Dose Aspirin EC] 81 mg PO DAILY 08/13/15 07/08/23 History Fenofibrate [Lofibra] 160 mg PO HS 08/13/15 07/08/23 History metFORMIN HCL [Glucophage] 500 mg PO W/BRKFST 08/13/15 07/08/23 History Cholecalciferol [Vitamin D3 (25 50 mcg PO DAILY 12/03/22 07/08/23 History Mcg = 1000 Iu)] Glimepiride [Amaryl] 1 mg PO W/BRKFST 12/03/22 07/08/23 History Latanoprost [Latanoprost 0.005%] 1 drop BOTH EYES HS 12/03/22 07/08/23 History Levothyroxine Sodium [Synthroid] 50 mcg PO DAILY 12/03/22 07/08/23 History Atorvastatin [Lipitor] 40 mg PO HS #30 tab 12/05/22 07/08/23 Rx metFORMIN HCL 500 mg PO W/SUPPER #0 12/05/22 07/08/23 Rx Allergies Allergy/AdvReac Type Severity Reaction Status Date / Time No Known Allergies Allergy Verified 07/08/23 07:09 Surgical - Exam Vital Signs Temp Pulse Resp BP Pulse Ox 98.0 F 81 16 135/68 99 07/08/23 07:14 07/08/23 07:14 07/08/23 07:14 07/08/23 07:14 07/08/23 07:14 Results - Labs Abnormal Lab Results - Last 24 Hours (Table) 07/08/23 Range/Units 07:28 POC Glucose (mg/dL) 115 H (70-110) mg/dL
--- NOTE | 2023-07-08 08:11 | P.PCN ---
Date of Procedure: 07/08/23 Description of Procedure: PREOPERATIVE DIAGNOSIS: Colonoscopy screening. POSTOPERATIVE DIAGNOSIS: Colonoscopy screening. Diverticulosis, sigmoid OPERATION: Colonoscopy to the cecum, ileocecal valve and appendiceal orifice. SURGEON: Lexii Rodriguez MD. ANESTHESIA: MAC. INDICATIONS: The patient is a 72-year-old male who presents for colonoscopy screening. Benefits and risks were described and informed consent was obtained. DESCRIPTION OF PROCEDURE: The patient had undergone GoLytely prep. The patient had been brought into the operating room and laid in the left lateral decubitus position. After adequate intravenous sedation, the rectum was examined with 2% lidocaine jelly. No external hemorrhoids were encountered. The rectal tone was within normal limits. No lesions were palpated in the rectal vault. An Olympus colonoscope was advanced until the cecum, ileocecal valve and appendiceal orifice were clearly viewed. The prep was fair. Mild to moderate sigmoid diverticulosis was encountered. No colonic polyps were found. No evidence of focal colitis was found. Retroflexion of the scope demonstrated grade 1 internal hemorrhoids without active bleeding or inflammation. The colon was desufflated. The patient had tolerated the procedure well. Withdrawal time was over 6 minutes. FINDINGS: Aronchick preparation quality scale 2+ (1-5) Internal hemorrhoids, grade 1 No external prolapsed hemorrhoids. No arteriovenous malformations. No adenomatous polyps. No focal colitis. Mild to moderate sigmoid diverticulosis RECOMMENDATIONS: Lower endoscopy in 10 years, 2033 Plan - Discharge Summary Discharge Rx Participant: No New Discharge Prescriptions: Continue metFORMIN HCL [Glucophage] 500 mg PO W/BRKFST Fenofibrate [Lofibra] 160 mg PO HS Aspirin [Adult Low Dose Aspirin EC] 81 mg PO DAILY Cholecalciferol [Vitamin D3 (25 Mcg = 1000 Iu)] 50 mcg PO DAILY Latanoprost [Latanoprost 0.005%] 1 drop BOTH EYES HS Glimepiride [Amaryl] 1 mg PO W/BRKFST Levothyroxine Sodium [Synthroid] 50 mcg PO DAILY Atorvastatin [Lipitor] 40 mg PO HS #30 tab metFORMIN HCL 500 mg PO W/SUPPER #0 Discharge Medication List Aspirin [Adult Low Dose Aspirin EC] 81 mg PO DAILY 08/13/15 [History] Fenofibrate [Lofibra] 160 mg PO HS 08/13/15 [History] metFORMIN HCL [Glucophage] 500 mg PO W/BRKFST 08/13/15 [History] Cholecalciferol [Vitamin D3 (25 Mcg = 1000 Iu)] 50 mcg PO DAILY 12/03/22 [H istory] Glimepiride [Amaryl] 1 mg PO W/BRKFST 12/03/22 [History] Latanoprost [Latanoprost 0.005%] 1 drop BOTH EYES HS 12/03/22 [History] Levothyroxine Sodium [Synthroid] 50 mcg PO DAILY 12/03/22 [History] Atorvastatin [Lipitor] 40 mg PO HS #30 tab 12/05/22 [Rx] metFORMIN HCL 500 mg PO W/SUPPER #0 12/05/22 [Rx] Follow up Appointment(s)/Referral(s): Lexii Rodriguez MD [STAFF PHYSICIAN] - As Needed Patient Instructions/Handouts: Diverticulosis Diet (GEN), Diverticulosis (DC) Activity/Diet/Wound Care/Special Instructions: Repeat colonoscopy 10 years2033 Discharge Disposition: HOME SELF-CARE
[2023-07-08 08:40] VITALS: BP 110/69; PULSE 77; RESP 18
== END 2023-07-08 09:02 | disposition home or self-care (01) ==
LOC: ORWHC2ENDO 06:30
PROVIDERS: ATTEND Surgery Plastic and Reconstructive Surgery
DX: Z12.11 Encounter for screening for malignant neoplasm of colon (principal); K64.0 First degree hemorrhoids; K57.30 Diverticulosis of large intestine without perforation or abscess without bleeding; E78.5 Hyperlipidemia, unspecified; G47.33 Obstructive sleep apnea (adult) (pediatric); I25.10 Atherosclerotic heart disease of native coronary artery without angina pectoris; E03.9 Hypothyroidism, unspecified; E11.22 Type 2 diabetes mellitus with diabetic chronic kidney disease; N18.9 Chronic kidney disease, unspecified; Z87.442 Personal history of urinary calculi; Z79.84 Long term (current) use of oral hypoglycemic drugs; Z79.899 Other long term (current) drug therapy; Z79.82 Long term (current) use of aspirin; Z79.890 Hormone replacement therapy
CPT/HCPCS: J2704; G0121

== ENCOUNTER → 2024-01-07 | Outpatient (CLI) | payer MEDICARE, OTHER ==
[2024-01-07 17:23] LABS: ALT 19 U/L (10-49); AST 28 U/L (14-35); Albumin 4.4 g/dL (3.8-4.9); Albumin/Globulin Ratio 2.32 Ratio (1.60-3.17); Alkaline Phosphatase 56 U/L (41-126); BUN/Creat Ratio 17.29 Ratio (12.00-20.00); Blood Urea Nitrogen 24.2 mg/dL (9.0-27.0); Calcium 9.3 mg/dL (8.7-10.3); Carbon Dioxide 22.1 mmol/L (21.6-31.8); Chloride 106 mmol/L (96-109); Globulin 1.9 g/dL (1.6-3.3); Glucose 134 mg/dL (70-110); LDL Cholesterol,Calculated 60.8 mg/dL (0.0-131.0); Potassium 4.6 mmol/L (3.5-5.5); Sodium 140 mmol/L (135-145); Total Bilirubin 0.6 mg/dL (0.3-1.2); Total Protein 6.3 g/dL (6.2-8.2); VLDL Calculation 10.26 mg/dL (5.00-40.00)
== END | disposition home or self-care (01) ==
LOC: LABWHC1 09:30
PROVIDERS: ATTEND Internal Medicine Interventional Cardiology
DX: E78.2 Mixed hyperlipidemia (principal)
CPT/HCPCS: 36415; 80053; 80061

== ENCOUNTER 2024-07-11 04:35 | Emergency (ER) | payer MEDICARE, OTHER ==
[2024-07-11 04:58] VITALS: TEMP 97.4
--- NOTE | 2024-07-11 05:04 | ED ---
GI Bleed HPI - General Source: patient, RN notes reviewed, old records reviewed Mode of arrival: ambulatory Limitations: no limitations - History of Present Illness MD complaint: blood on toilet paper, blood streaked stool -: hour(s) Severity scale (1-10): 7 Quality: cramping Consistency: constant Improves with: none Worsens with: none Context: history of GI bleed Associated Symptoms: abdominal pain, nausea, loss of appetite, weakness <Lj Sandhu - Last Filed: 07/11/24 05:52> <Joey Rascon - Last Filed: 07/11/24 08:46> - General Chief complaint: GI Bleed Stated complaint: blood in urine Time Seen by Provider: 07/11/24 04:51 - History of Present Illness Initial comments: This is a 73-year-old male to the ER for evaluation of GI bleed multiple episodes of bright red blood per rectum tonight. Blood with stool (Lj Sandhu) - Related Data Home Medications Medication Instructions Recorded Confirmed Aspirin [Adult Low Dose Aspirin EC] 81 mg PO DAILY 08/13/15 07/08/23 Fenofibrate [Lofibra] 160 mg PO HS 08/13/15 07/08/23 metFORMIN HCL [Glucophage] 500 mg PO W/BRKFST 08/13/15 07/08/23 Cholecalciferol [Vitamin D3 (25 50 mcg PO DAILY 12/03/22 07/08/23 Mcg = 1000 Iu)] Glimepiride [Amaryl] 1 mg PO W/BRKFST 12/03/22 07/08/23 Latanoprost [Latanoprost 0.005%] 1 drop BOTH EYES HS 12/03/22 07/08/23 Levothyroxine Sodium [Synthroid] 50 mcg PO DAILY 12/03/22 07/08/23 Previous Rx's Medication Instructions Recorded Atorvastatin [Lipitor] 40 mg PO HS #30 tab 12/05/22 metFORMIN HCL 500 mg PO W/SUPPER #0 12/05/22 Allergies Allergy/AdvReac Type Severity Reaction Status Date / Time No Known Allergies Allergy Verified 07/11/24 04:54 Review of Systems ROS Other: All systems not noted in ROS Statement are negative. <Lj Sandhu - Last Filed: 07/11/24 05:52> ROS Other: All systems not noted in ROS Statement are negative. <Robinson Rasconssmartin Chahal - Last Filed: 07/11/24 08:46> ROS Statement: Those systems with pertinent positive or pertinent negative responses have been documented in the HPI. Past Medical History Past Medical History: Chest Pain / Angina, Diabetes Mellitus, Eye Disorder, Hyperlipidemia, Sleep Apnea/CPAP/BIPAP, Thyroid Disorder Additional Past Medical History / Comment(s): hx kidney stones, CATARACTS, GLAUCOMA,10/24 chest pain, cpap History of Any Multi-Drug Resistant Organisms: None Reported Past Surgical History: Heart Catheterization Additional Past Surgical History / Comment(s): 08/14/16 LEFT and right EYE CAT ARACT SX WITH ISTENT, Past Anesthesia/Blood Transfusion Reactions: No Reported Reaction Additional Past Anesthesia/Blood Transfusion Reaction / Comment(s): no blood transfusion Past Psychological History: No Psychological Hx Reported Smoking Status: Never smoker Past Alcohol Use History: None Reported Past Drug Use History: None Reported - Past Family History Sister(s) Family Medical History: Cancer Additional Family Medical History / Comment(s): breast Mother Family Medical History: Cancer Additional Family Medical History / Comment(s): leg <Lj Sandhu - Last Filed: 07/11/24 05:52> General Exam Limitations: no limitations General appearance: alert, in no apparent distress Head exam: Present: atraumatic, normocephalic, normal inspection Eye exam: Present: normal appearance, PERRL, EOMI. Absent: scleral icterus, conjunctival injection, periorbital swelling ENT exam: Present: normal exam, mucous membranes moist Neck exam: Present: normal inspection. Absent: tenderness, meningismus, lymphadenopathy Respiratory exam: Present: normal lung sounds bilaterally. Absent: respiratory distress, wheezes, rales, rhonchi, stridor Cardiovascular Exam: Present: regular rate, normal rhythm, normal heart sounds. Absent: systolic murmur, diastolic murmur, rubs, gallop, clicks GI/Abdominal exam: Present: soft, normal bowel sounds. Absent: distended, tenderness, guarding, rebound, rigid Extremities exam: Present: normal inspection, full ROM, normal capillary refill. Absent: tenderness, pedal edema, joint swelling, calf tenderness Back exam: Present: normal inspection Neurological exam: Present: alert, oriented X3, CN II-XII intact Psychiatric exam: Present: normal affect, normal mood Skin exam: Present: warm, dry, intact, normal color. Absent: rash <PhoebeLj B - Last Filed: 07/11/24 05:52> Course <Terry Sandhumartin Soriano - Last Filed: 07/11/24 05:52> Vital Signs 07/11/24 07/11/24 04:54 07:38 Temperature 97.4 F L Pulse Rate 85 74 Respiratory 16 18 Rate Blood Pressure 104/71 101/62 O2 Sat by Pulse 99 97 Oximetry - Reevaluation(s) Reevaluation #1: 07/11/24 05:52 Medical records reviewed (Lj Sandhu) Reevaluation #4: Was pt. sent in by a medical professional or institution ([facility], REHAB CARE ASSISTANT, urgent care, hospital, or retirement...) When possible be specific @ -no Did you speak to anyone other than the patient for history (EMS, parent, family, police, friend...)? What history was obtained from this source @ -no Did you review nursing and triage notes (agree or disagree)? Why? @ -agree Are old charts reviewed (outside hosp., previous admission, EMS record, old EKG, old radiological studies, urgent care reports/EKG's, retirement records)? Report findings @ -yes Differential Diagnosis (chest pain, altered mental status, abdominal pain women, abdominal pain men, vaginal bleeding, weakness, fever, dyspnea, syncope, headache, dizziness, GI bleed, back pain, seizure, CVA, palpatations, mental health, musculoskeletal)? @ -prior EKG interpreted by me (3pts min.). @ -yes X-rays interpreted by me (1pt min.). @ -yes negative for acute disease CT interpreted by me (1pt min.). @ -no U/S interpreted by me (1pt. min.). @ -no What testing was considered but not performed or refused? (CT, X-rays, U/S, labs)? Why? @ -none What meds were considered but not given or refused? Why? @ -none Did you discuss the management of the patient with other professionals (professionals i.e. Dr., PA, REHAB CARE ASSISTANT, lab, RT, psych nurse, social service assistant, principle software engineer, teacher, security officer, caravan park and camping ground manager)? Give summary @ -no Was smoking cessation discussed for >3mins.? @ -no Was critical care preformed (if so, how long)? @ -no Were there social determinants of health that impacted care today? How? (Homelessness, low income, unemployed, alcoholism, drug addiction, transportation, low edu. Level, literacy, decrease access to med. care, prison, rehab)? @ -none Was there de-escalation of care discussed even if they declined (Discuss DNR or withdrawal of care, Hospice)? DNR status @ -no What co-morbidities impacted this encounter? (DM, HTN, Smoking, COPD, CAD, Cancer, CVA, ARF, Chemo, Hep., AIDS, mental health diagnosis, sleep apnea, morbid obesity)? @ -none Was patient admitted / discharged? Hospital course, mention meds given and route, prescriptions, significant lab abnormalities, going to OR and other pertinent info. @ - Undiagnosed new problem with uncertain prognosis? @ -no Drug Therapy requiring intensive monitoring for toxicity (Heparin, Nitro, Insulin, Cardizem)? @ -no Were any procedures done? @ -no Diagnosis/symptom? @ - Acute, or Chronic, or Acute on Chronic? @ -Acute Uncomplicated (without systemic symptoms) or Complicated (systemic symptoms)? @ -Complicated Side effects of treatment? @ -no Exacerbation, Progression, or Severe Exacerbation? @ -exacerbation Poses a threat to life or bodily function? How? (Chest pain, [place], HI, pneumonia, PE, COPD, DKA, ARF, appy, cholecystitis, CVA, Diverticulitis, Homicidal, Suicidal, threat to staff... and all critical care pts) @ -yes (Lj Sandhu) Reevaluation #5: Differential GI Bleed: Esophageal varices, aortoenteric fistula, Myrna-Srivastava, gastritis, peptic ulcer disease, diverticulosis, inflammatory bowel disease, hemorrhoids, fissure, colitis, malignancy, Meckel's diverticulum, this is not meant to be an all- inclusive list. (Lj Sandhu) Medical Decision Making - Lab Data Result diagrams: 07/11/24 05:20 <Lj Sandhu - Last Filed: 07/11/24 05:52> - Lab Data Result diagrams: 07/11/24 05:20 07/11/24 07:01 <Joey Rascon - Last Filed: 07/11/24 08:46> - Medical Decision Making Patient care signed out to me by previous shift physician, Dr. Don. Briefly, patient 73-year-old male presents emergency department for GI bleed. Plan at signout was to follow-up with pending CT imaging. Vital signs reviewed found to be within acceptable limits. Laboratory evaluation pending. CT imaging showed duodenitis. Patient reevaluated at 8:45 AM states that he feels significantly better. Has not had any bleeding since being in the ER. Patient repeat abdominal exam is unremarkable. He has a soft nontender nonsurgical abdomen. Patient discharged told to follow-up with gastroenterology. Return precautions discussed Diagnosis/symptom? @ -GI bleed Acute, or Chronic, or Acute on Chronic? @ -Default Uncomplicated (without systemic symptoms) or Complicated (systemic symptoms)? @ -Default Side effects of treatment? @ -None Exacerbation, Progression, or Severe Exacerbation] @ -No Poses a threat to life or bodily function? @ -no (Joey Rascon) - Lab Data Lab Results 07/11/24 07/11/24 07/11/24 Range/Units 05:09 05:14 05:20 WBC 11.0 H (3.8-10.6) k/uL RBC 4.37 (4.30-5.90) m/uL Hgb 12.9 L (13.0-17.5) gm/dL Hct 39.3 (39.0-53.0) % MCV 89.9 (80.0-100.0) fL MCH 29.4 (25.0-35.0) pg MCHC 32.7 (31.0-37.0) g/dL RDW 12.8 (11.5-15.5) % Plt Count 174 (150-450) k/uL MPV 9.3 Neutrophils % 75 % Lymphocytes % 18 % Monocytes % 4 % Eosinophils % 1 % Basophils % 0 % Neutrophils # 8.2 H (1.3-7.7) k/uL Lymphocytes # 2.0 (1.0-4.8) k/uL Monocytes # 0.5 (0-1.0) k/uL Eosinophils # 0.1 (0-0.7) k/uL Basophils # 0.0 (0-0.2) k/uL PT (10.0-12.5) sec INR (<1.2) APTT (22.0-30.0) sec Sodium (137-145) mmol/L Potassium (3.5-5.1) mmol/L Chloride (98-107) mmol/L Carbon Dioxide (22-30) mmol/L Anion Gap mmol/L BUN (9-20) mg/dL Creatinine (0.66-1.25) mg/dL Est GFR (CKD-EPI)AfAm (>60 ml/min/1.73 sqM) Est GFR (CKD-EPI)NonAf (>60 ml/min/1.73 sqM) Glucose (74-99) mg/dL Calcium (8.4-10.2) mg/dL Magnesium (1.6-2.3) mg/dL Total Bilirubin (0.2-1.3) mg/dL AST (17-59) U/L ALT (4-49) U/L Alkaline Phosphatase (38-126) U/L Troponin I (0.000-0.034) ng/mL Total Protein (6.3-8.2) g/dL Albumin (3.5-5.0) g/dL Lipase (23-300) U/L Blood Type A Positive Blood Type Confirm A Positive Blood Type Recheck No Previous Record Bld Type Recheck Status CABO Indicated Antibody Screen NEGATIVE Spec Expiration Date 07/14/2024231907/11/24 07/11/24 07/11/24 Range/Units 05:20 05:20 07:01 WBC (3.8-10.6) k/uL RBC (4.30-5.90) m/uL Hgb (13.0-17.5) gm/dL Hct (39.0-53.0) % MCV (80.0-100.0) fL MCH (25.0-35.0) pg MCHC (31.0-37.0) g/dL RDW (11.5-15.5) % Plt Count (150-450) k/uL MPV Neutrophils % % Lymphocytes % % Monocytes % % Eosinophils % % Basophils % % Neutrophils # (1.3-7.7) k/uL Lymphocytes # (1.0-4.8) k/uL Monocytes # (0-1.0) k/uL Eosinophils # (0-0.7) k/uL Basophils # (0-0.2) k/uL PT 10.7 (10.0-12.5) sec INR 1.0 (<1.2) APTT 21.4 L (22.0-30.0) sec Sodium 133 L (137-145) mmol/L Potassium 5.9 H (3.5-5.1) mmol/L Chloride 108 H (98-107) mmol/L Carbon Dioxide 19 L (22-30) mmol/L Anion Gap 6 mmol/L BUN 43 H (9-20) mg/dL Creatinine 1.39 H (0.66-1.25) mg/dL Est GFR (CKD-EPI)AfAm 58 (>60 ml/min/1.73 sqM) Est GFR (CKD-EPI)NonAf 50 (>60 ml/min/1.73 sqM) Glucose 187 H (74-99) mg/dL Calcium 8.0 L (8.4-10.2) mg/dL Magnesium 1.7 (1.6-2.3) mg/dL Total Bilirubin 0.7 (0.2-1.3) mg/dL AST 28 (17-59) U/L ALT 19 (4-49) U/L Alkaline Phosphatase 43 (38-126) U/L Troponin I 0.017 (0.000-0.034) ng/mL Total Protein 5.4 L (6.3-8.2) g/dL Albumin 3.0 L (3.5-5.0) g/dL Lipase 562 H (23-300) U/L Blood Type Blood Type Confirm Blood Type Recheck Bld Type Recheck Status Antibody Screen Spec Expiration Date Disposition <Lj Sandhu - Last Filed: 07/11/24 05:52> Is patient prescribed a controlled substance at d/c from ED?: No <Joey Rascon - Last Filed: 07/11/24 08:46> Clinical Impression: GI bleed Disposition: HOME SELF-CARE Condition: Good Instructions (If sedation given, give patient instructions): Gastrointestinal Bleeding (ED) Referrals: Mitch Ashley DO [Primary Care Provider] - 1-2 days Marily Zhu MD [STAFF PHYSICIAN] - 1-2 days
[2024-07-11] MEDS: SODIUM CHLORIDE 0.9% 1,000 ML IV STA (05:18)
[2024-07-11] MEDS: PANTOPRAZOLE 40 MG/10 ML VIAL IVP STA (05:19)
[2024-07-11 05:51] LABS: Basophils % (A) 0 %; Eosinophils # (A) 0.1 k/uL (0-0.7); Eosinophils % (A) 1 %; HCT 39.3 % (39.0-53.0); HGB 12.9 gm/dL (13.0-17.5); Lymphocytes % (A) 18 %; MCH 29.4 pg (25.0-35.0); MCHC 32.7 g/dL (31.0-37.0); MCV 89.9 fL (80.0-100.0); Mean Platelet Volume 9.3; Monocytes # (A) 0.5 k/uL (0-1.0); Monocytes % (A) 4 %; Neutrophils # (A) 8.2 k/uL (1.3-7.7); Neutrophils % (A) 75 %; Platelet Count 174 k/uL (150-450); Prothrombin Time 10.7 sec (10.0-12.5); RBC 4.37 m/uL (4.30-5.90); RDW 12.8 % (11.5-15.5)
[2024-07-11] MEDS: ONDANSETRON 4 MG/2 ML VIAL IVP STA (07:04)
[2024-07-11 07:13] LABS: Partial Thromboplastin Time 21.4 sec (22.0-30.0)
[2024-07-11 07:31] LABS: ALT 19 U/L (4-49); AST 28 U/L (17-59); African American GFR (CKD) 58 (>60 ml/min/1.73 sqM); Alkaline Phosphatase 43 U/L (38-126); Anion Gap 6 mmol/L; Blood Urea Nitrogen 43 mg/dL (9-20); Carbon Dioxide 19 mmol/L (22-30); Chloride 108 mmol/L (98-107); Glucose 187 mg/dL (74-99); Lipase 562 U/L (23-300); Magnesium 1.7 mg/dL (1.6-2.3); Non-African American GFR(CKD) 50 (>60 ml/min/1.73 sqM); Potassium 5.9 mmol/L (3.5-5.1); Sodium 133 mmol/L (137-145); Total Bilirubin 0.7 mg/dL (0.2-1.3); Total Protein 5.4 g/dL (6.3-8.2)
[2024-07-11 07:39] VITALS: RESP 18
--- NOTE | 2024-07-11 08:22 | CT ---
EXAMINATION TYPE: CT abdomen pelvis w con DATE OF EXAM: 07/11/2024 COMPARISON: NONE CLINICAL INDICATION: Male, 73 years old with history of pain, DARK RED STOOL, TECHNIQUE: CT scan of the abdomen and pelvis is performed with IV Contrast, patient injected with 80 ml mL of Is ovue 300., (none if empty) Oral contrast used: without Oral Contrast (none if empty) CT DLP: 810.8 mGycm, Automated exposure control for dose reduction was used. FINDINGS: LUNG BASES: Coronary artery calcification is present. LIVER/GB: No significant abnormality is appreciated. PANCREAS: No significant abnormality is seen. SPLEEN: No significant abnormality is seen. ADRENALS: No significant abnormality is seen. KIDNEYS: A few small simple appearing thin-walled cysts are scattered throughout both kidneys. A depe ndent 12 mm calculus in the urinary bladder axial image 67. BOWEL: Sigmoid colonic diverticula. No CT evidence for acute diverticulitis. No abnormal small or lar ge bowel dilatation. Normal-appearing appendix from the cecum. Stomach is poorly distended and thus s uboptimally evaluated. There is moderate to severe wall thickening involving the second portion of th e duodenum with mild adjacent fat stranding. PROSTATE/SEMINAL VESICLES: Markedly enlarged prostate consistent with BPH. LYMPH NODES: No greater than 1cm abdominal or pelvic lymph nodes are appreciated. OSSEOUS STRUCTURES: Dextroconvex scoliosis centered at L3-L4 level is seen. [id number]-[id number] disc s pace narrowing and endplate sclerosis at left L2-L3 level. OTHER: Small fat-containing right inguinal hernia. There is fat density lesion in the left anterolate ral thigh muscle likely reflecting benign lipoma but other etiologies not entirely excluded. This justin sures 7.5 x 2.8 cm coronal image 52. IMPRESSION: Focal acute duodenitis is felt present. Correlate clinically. Distal colonic diverticulos is is seen without CT evidence for acute diverticulitis. [facility], , 07/11/2024 8:20 AM
[2024-07-11 09:08] VITALS: BP 106/63; PULSE 78
== END 2024-07-11 09:16 | disposition home or self-care (01) ==
LOC: EC 04:35
DX: K92.2 Gastrointestinal hemorrhage, unspecified (principal)
CPT/HCPCS: 36415; 86900; 86901; 80053; 83690; 83735; 84484; 85025; 85610; 85730; 86850; 74177; 99285; 96374; 96361; Q9967; J2470

== ENCOUNTER 2024-07-18 15:36 | Inpatient (IN) | payer MEDICARE, OTHER ==
--- NOTE | 2024-07-18 16:04 | ED ---
Recheck HPI - General Source: patient, RN notes reviewed Mode of arrival: ambulatory Limitations: no limitations <Fabio Oliveira - Last Filed: 07/18/24 16:02> - General Source: patient, RN notes reviewed Mode of arrival: ambulatory Limitations: no limitations - History of Present Illness MD Complaint: abnormal lab <Chayito Shahid - Last Filed: 07/19/24 00:16> - General Chief Complaint: Nausea/Vomiting/Diarrhea Stated Complaint: Irreg BP Time Seen by Provider: 07/18/24 15:52 - History of Present Illness Initial Comments: Quick note: This is a 73-year-old male with history of DM2 presenting for elevated blood glucose levels. Patient endorses recently receiving azithromycin and Medrol Dosepak following an influenza diagnosis. Endorses blood glucose reading "high" with associated nausea/vomiting and balance issues. Patient's friend states that patient is notes he is "loopy". (Fabio Oliveira) This is a 73-year-old male who presents to the emergency department for nausea/vomiting and hyperglycemia. Patient states that yesterday he started to have nausea and vomiting and today when checking his blood sugars the meter just read "high". Reports some generalized abdominal soreness but no jany pain. He did just start azithromycin and a Medrol Dosepak for a respiratory illness 1 to 2 days ago as well. Reports continued coughing and congestion. He has minor shortness of breath. Denies any chest pain. He is only on metformin and Amaryl for type 2 diabetes. Denies any history of DKA. He was also evaluated here last week for blood in his stool. States that this has since started to subside. (Chayito Shahid) - Related Data Home Medications Medication Instructions Recorded Confirmed Aspirin [Adult Low Dose Aspirin EC] 81 mg PO DAILY 08/13/15 07/18/24 metFORMIN HCL [Glucophage] 1,000 mg PO W/BRKFST 08/13/15 07/18/24 Cholecalciferol [Vitamin D3 (25 50 mcg PO DAILY 12/03/22 07/18/24 Mcg = 1000 Iu)] Glimepiride [Amaryl] 1 mg PO W/BRKFST 12/03/22 07/18/24 Levothyroxine Sodium [Synthroid] 50 mcg PO DAILY 12/03/22 07/18/24 Azithromycin [Zithromax Z Pack] See Taper PO DIRECTED 07/18/24 07/18/24 Timolol 0.5% Ophth Soln [Timoptic 1 drop BOTH EYES HS 07/18/24 07/18/24 0.5% Ophth Soln] methylPREDNISolone [Medrol Dose See Taper PO DIRECTED 07/18/24 07/18/24 Pack] Previous Rx's Medication Instructions Recorded Atorvastatin [Lipitor] 40 mg PO HS #30 tab 12/05/22 metFORMIN HCL 500 mg PO W/SUPPER #0 12/05/22 Allergies Allergy/AdvReac Type Severity Reaction Status Date / Time No Known Allergies Allergy Verified 07/18/24 16:52 Review of Systems ROS Other: All systems not noted in ROS Statement are negative. <Fabio Oliveira - Last Filed: 07/18/24 16:02> ROS Other: All systems not noted in ROS Statement are negative. <Chayito Shahid - Last Filed: 07/19/24 00:16> ROS Statement: Those systems with pertinent positive or pertinent negative responses have been documented in the HPI. Past Medical History Past Medical History: Chest Pain / Angina, Diabetes Mellitus, Eye Disorder, Hyperlipidemia, Sleep Apnea/CPAP/BIPAP, Thyroid Disorder Additional Past Medical History / Comment(s): hx kidney stones, CATARACTS, GLAUCOMA,10/24 chest pain, cpap History of Any Multi-Drug Resistant Organisms: None Reported Past Surgical History: Heart Catheterization Additional Past Surgical History / Comment(s): 08/14/16 LEFT and right EYE CATARACT SX WITH ISTENT, Past Anesthesia/Blood Transfusion Reactions: No Reported Reaction Additional Past Anesthesia/Blood Transfusion Reaction / Comment(s): no blood transfusion Past Psychological History: No Psychological Hx Reported Smoking Status: Never smoker Past Alcohol Use History: None Reported Past Drug Use History: None Reported - Past Family History Sister(s) Family Medical History: Cancer Additional Family Medical History / Comment(s): breast Mother Family Medical History: Cancer Additional Family Medical History / Comment(s): leg <Fabio Oliveira - Last Filed: 07/18/24 16:02> General Exam <Fabio Oliveira - Last Filed: 07/18/24 16:02> Limitations: no limitations General appearance: alert, in distress Head exam: Present: atraumatic, normocephalic, normal inspection Respiratory exam: Present: normal lung sounds bilaterally. Absent: respiratory distress, wheezes, rales, rhonchi, stridor Cardiovascular Exam: Present: normal rhythm, tachycardia GI/Abdominal exam: Present: soft, normal bowel sounds. Absent: distended, tend erness, guarding, rebound, rigid Neurological exam: Present: alert, oriented X3, CN II-XII intact Psychiatric exam: Present: normal affect, normal mood Skin exam: Present: warm, dry, intact, normal color. Absent: rash <Chayito Shahid - Last Filed: 07/19/24 00:16> - General Exam Comments Initial Comments: Visual Physical Exam Vital signs reviewed General: Well-appearing, nontoxic, no acute distress. Head: Normocephalic, atraumatic Eyes: PERRLA, EOMI ENT: Airway patent Chest: Nonlabored breathing Skin: No visual rash, normal skin tone Neuro: Alert and oriented 3 Musculoskeletal: No gross abnormalities (Fabio Oliveira) Course Vital Signs 07/18/24 07/18/24 07/18/24 16:14 18:19 20:33 Temperature 98.3 F 97.8 F Pulse Rate 108 H 91 88 Respiratory 20 18 Rate Blood Pressure 120/72 112/70 111/66 O2 Sat by Pulse 96 95 Oximetry 07/18/24 23:15 Temperature Pulse Rate 81 Respiratory 18 Rate Blood Pressure 104/59 O2 Sat by Pulse 92 L Oximetry Medical Decision Making <Fabio Oliveira - Last Filed: 07/18/24 16:02> - Lab Data Result diagrams: 07/18/24 22:17 07/18/24 22:17 - Radiology Data Radiology results: report reviewed, image reviewed <Chayito Shahid - Last Filed: 07/19/24 00:16> - Medical Decision Making I completed the quick note portion of this chart signed LIZABETH Ruiz (Fabio Oliveira) This is a 73-year-old male who presents to the emergency department for nausea/vomiting and hyperglycemia. Was pt. sent in by a medical professional or institution? @ -No Did you speak to anyone other than the patient for history? @ -No Did you review nursing and triage notes? @ -Yes, and I agree, it is accurate with regards to the patient's symptoms. Were old charts reviewed? @ -No Differential Diagnosis? @ -Differential Nausea and Vomiting: Gastroenteritis, cholecystitis, appendicitis, pancreatitis, migraine, benign positional vertigo, food borne illness, pyelonephritis, irritable bowel syndrome, influenza, Covid, GERD, incarcerated hernia, intestinal obstruction, this is not meant to be an all-inclusive list. EKG interpreted by me (3pts min.)? @ -EKG interpreted by me demonstrating the following: Sinus rhythm. Ventricular rate 88 bpm, WA interval 130 ms, QRS duration 71 ms, QTc 392 ms. X-rays interpreted by me (1pt min.)? @ -Chest x-ray obtained, my interpretation identifies no localized consolidations or infiltrates. CT interpreted by me (1pt min.)? @ -Not obtained U/S interpreted by me (1pt. min.)? @ -Not obtained What testing was considered but not performed? (CT, X-rays, U/S, labs)? Why? @ -None What meds were considered but not given? Why? @ -None Did you discuss the management of the patient with other professionals? @ -Yes, Dr. Ashley, who accepts the patient for admission Did you reconcile home meds? @ -Yes Was smoking cessation discussed for >3mins.? @ -No Was critical care preformed (if so, how long)? @ -No Were there social determinants of health that impacted care today? How? (Homelessness, low income, unemployed, alcoholism, drug addiction, transportation, low edu. Level, literacy, decrease access to med. care, residential, rehab)? @ -No Was there de-escalation of care discussed even if they declined? (Discuss DNR or withdrawal of care, Hospice)? @ -No What co-morbidities impacted this encounter? (DM, HTN, Smoking, COPD, CAD, Cancer, CVA, Hep., AIDS, mental health diagnosis, sleep apnea, morbid obesity)? @ -DM Was patient admitted / discharged? @ -Admitted. Lab work demonstrates a glucose of 617. However, acetone is negative and lab work otherwise not suggestive of DKA. Sodium of 127 likely a pseudohyponatremia secondary to hyperglycemia. When corrected for glucose this is approximately 135. Lactic acid is 3.5. Potassium 5.7. Lipase elevated at 617, but not 3x the upper limit of normal. Findings are also concerning for a hemoglobin of 7.2. 1 week ago this was 12.9. He reports having blood in his stool over the last week, however states that it has since started to improve. He is not taking any blood thinners. He is also positive for COVID-19. Chest x-ray unremarkable. He was given 2 L of IV fluids on arrival and initially given 8 units of insulin. Patient admitted to medicine for the hyperglycemia and fairly substantial drop in hemoglobin. Will plan to recheck hemoglobin in several hours. This is expected to be decreased to some extent following dilution with IV fluids. Consult placed for GI regarding the anemia and recent GI bleed. Case discussed with ED attending Dr. Ritchie. Undiagnosed new problem with uncertain prognosis? @ -None Drug Therapy requiring intensive monitoring for toxicity (Heparin, Nitro, Insulin, Cardizem)? @ -None Were any procedures done? @ -None Diagnosis/symptom? @ -Nausea and vomiting, hyperglycemia, anemia Acute, or Chronic, or Acute on Chronic? @ -Acute Uncomplicated (without systemic symptoms) or Complicated (systemic symptoms)? @ -Complicated Side effects of treatment? @ -None Exacerbation, Progression, or Severe Exacerbation] @ -Not applicable Poses a threat to life or bodily function? @ -Yes, if hemoglobin continues to drop it can become life-threatening. (Chayito Shahid) - Lab Data Lab Results 07/18/24 07/18/24 07/18/24 Range/Units 16:15 16:47 16:47 WBC 14.9 H (3.8-10.6) k/uL RBC 2.39 L (4.30-5.90) m/uL Hgb 7.2 L D (13.0-17.5) gm/dL Hct 23.1 L (39.0-53.0) % MCV 96.4 D (80.0-100.0) fL MCH 30.0 (25.0-35.0) pg MCHC 31.1 (31.0-37.0) g/dL RDW 18.1 H (11.5-15.5) % Plt Count 378 D (150-450) k/uL MPV 9.1 Neutrophils % 85 % Lymphocytes % 10 % Monocytes % 3 % Eosinophils % 0 % Basophils % 0 % Neutrophils # 12.7 H (1.3-7.7) k/uL Lymphocytes # 1.5 (1.0-4.8) k/uL Monocytes # 0.5 (0-1.0) k/uL Eosinophils # 0.0 (0-0.7) k/uL Basophils # 0.0 (0-0.2) k/uL Hypochromasia Slight Poikilocytosis Slight Anisocytosis Slight Macrocytosis Slight PT (10.0-12.5) sec INR (<1.2) APTT (22.0-30.0) sec VBG pH (7.31-7.41) VBG pCO2 (37-51) mmHg VBG HCO3 (24-28) mmol/L Sodium 127 L (137-145) mmol/L Potassium 5.7 H (3.5-5.1) mmol/L Chloride 96 L (98-107) mmol/L Carbon Dioxide 20 L (22-30) mmol/L Anion Gap 11 mmol/L BUN 43 H (9-20) mg/dL Creatinine 1.55 H (0.66-1.25) mg/dL Est GFR (CKD-EPI)AfAm 50 (>60 ml/min/1.73 sqM) Est GFR (CKD-EPI)NonAf 44 (>60 ml/min/1.73 sqM) Glucose 617 H* (74-99) mg/dL POC Glucose (mg/dL) >600 H* (70-110) mg/dL POC Glu Hair Boiler ID [facility] Lactic Ac Sepsis Rflx Plasma Lactic Acid Lui (0.7-2.0) mmol/L Calcium 9.3 (8.4-10.2) mg/dL Phosphorus 4.5 (2.5-4.5) mg/dL Magnesium 2.1 (1.6-2.3) mg/dL Total Bilirubin 0.6 (0.2-1.3) mg/dL AST 31 (17-59) U/L ALT 20 (4-49) U/L Alkaline Phosphatase 52 (38-126) U/L Total Protein 5.5 L (6.3-8.2) g/dL Albumin 3.4 L (3.5-5.0) g/dL Amylase 100 (30-110) U/L Lipase 617 H (23-300) U/L Urine Color Urine Appearance (Clear) Urine pH (5.0-8.0) Ur Specific [place] (1.001-1.035) Urine Protein (Negative) Urine Glucose (UA) (Negative) Urine Ketones (Negative) Urine Blood (Negative) Urine Nitrite (Negative) Urine Bilirubin (Negative) Urine Urobilinogen (<2.0) mg/dL Ur Leukocyte Esterase (Negative) Urine RBC (0-5) /hpf Acetone, Qual Negative (Negative) Influenza Type A (PCR) (Not Detectd) Influenza Type B (PCR) (Not Detectd) RSV (PCR) (Not Detectd) SARS-CoV-2 (PCR) (Not Detectd) Blood Type Blood Type Recheck Bld Type Recheck Status Antibody Screen Spec Expiration Date 07/18/24 07/18/24 07/18/24 Range/Units 16:47 16:47 16:56 WBC (3.8-10.6) k/uL RBC (4.30-5.90) m/uL Hgb (13.0-17.5) gm/dL Hct (39.0-53.0) % MCV (80.0-100.0) fL MCH (25.0-35.0) pg MCHC (31.0-37.0) g/dL RDW (11.5-15.5) % Plt Count (150-450) k/uL MPV Neutrophils % % Lymphocytes % % Monocytes % % Eosinophils % % Basophils % % Neutrophils # (1.3-7.7) k/uL Lymphocytes # (1.0-4.8) k/uL Monocytes # (0-1.0) k/uL Eosinophils # (0-0.7) k/uL Basophils # (0-0.2) k/uL Hypochromasia Poikilocytosis Anisocytosis Macrocytosis PT (10.0-12.5) sec INR (<1.2) APTT (22.0-30.0) sec VBG pH 7.37 (7.31-7.41) VBG pCO2 38 (37-51) mmHg VBG HCO3 22 L (24-28) mmol/L Sodium (137-145) mmol/L Potassium (3.5-5.1) mmol/L Chloride (98-107) mmol/L Carbon Dioxide (22-30) mmol/L Anion Gap mmol/L BUN (9-20) mg/dL Creatinine (0.66-1.25) mg/dL Est GFR (CKD-EPI)AfAm (>60 ml/min/1.73 sqM) Est GFR (CKD-EPI)NonAf (>60 ml/min/1.73 sqM) Glucose (74-99) mg/dL POC Glucose (mg/dL) (70-110) mg/dL POC Glu Hair Boiler ID Lactic Ac Sepsis Rflx Plasma Lactic Acid Lui 3.6 H* (0.7-2.0) mmol/L Calcium (8.4-10.2) mg/dL Phosphorus (2.5-4.5) mg/dL Magnesium (1.6-2.3) mg/dL Total Bilirubin (0.2-1.3) mg/dL AST (17-59) U/L ALT (4-49) U/L Alkaline Phosphatase (38-126) U/L Total Protein (6.3-8.2) g/dL Albumin (3.5-5.0) g/dL Amylase (30-110) U/L Lipase (23-300) U/L Urine Color Urine Appearance (Clear) Urine pH (5.0-8.0) Ur Specific [place] (1.001-1.035) Urine Protein (Negative) Urine Glucose (UA) (Negative) Urine Ketones (Negative) Urine Blood (Negative) Urine Nitrite (Negative) Urine Bilirubin (Negative) Urine Urobilinogen (<2.0) mg/dL Ur Leukocyte Esterase (Negative) Urine RBC (0-5) /hpf Acetone, Qual (Negative) Influenza Type A (PCR) Not Detected (Not Detectd) Influenza Type B (PCR) Not Detected (Not Detectd) RSV (PCR) Not Detected (Not Detectd) SARS-CoV-2 (PCR) Detected A (Not Detectd) Blood Type Blood Type Recheck Bld Type Recheck Status Antibody Screen Spec Expiration Date 07/18/24 07/18/24 07/18/24 Range/Units 17:19 17:31 19:39 WBC (3.8-10.6) k/uL RBC (4.30-5.90) m/uL Hgb (13.0-17.5) gm/dL Hct (39.0-53.0) % MCV (80.0-100.0) fL MCH (25.0-35.0) pg MCHC (31.0-37.0) g/dL RDW (11.5-15.5) % Plt Count (150-450) k/uL MPV Neutrophils % % Lymphocytes % % Monocytes % % Eosinophils % % Basophils % % Neutrophils # (1.3-7.7) k/uL Lymphocytes # (1.0-4.8) k/uL Monocytes # (0-1.0) k/uL Eosinophils # (0-0.7) k/uL Basophils # (0-0.2) k/uL Hypochromasia Poikilocytosis Anisocytosis Macrocytosis PT (10.0-12.5) sec INR (<1.2) APTT (22.0-30.0) sec VBG pH (7.31-7.41) VBG pCO2 (37-51) mmHg VBG HCO3 (24-28) mmol/L Sodium (137-145) mmol/L Potassium (3.5-5.1) mmol/L Chloride (98-107) mmol/L Carbon Dioxide (22-30) mmol/L Anion Gap mmol/L BUN (9-20) mg/dL Creatinine (0.66-1.25) mg/dL Est GFR (CKD-EPI)AfAm (>60 ml/min/1.73 sqM) Est GFR (CKD-EPI)NonAf (>60 ml/min/1.73 sqM) Glucose (74-99) mg/dL POC Glucose (mg/dL) 509 H* (70-110) mg/dL POC Glu Hair Boiler ID [place] [facility] Lactic Ac Sepsis Rflx Y Plasma Lactic Acid Lui (0.7-2.0) mmol/L Calcium (8.4-10.2) mg/dL Phosphorus (2.5-4.5) mg/dL Magnesium (1.6-2.3) mg/dL Total Bilirubin (0.2-1.3) mg/dL AST (17-59) U/L ALT (4-49) U/L Alkaline Phosphatase (38-126) U/L Total Protein (6.3-8.2) g/dL Albumin (3.5-5.0) g/dL Amylase (30-110) U/L Lipase (23-300) U/L Urine Color Urine Appearance (Clear) Urine pH (5.0-8.0) Ur Specific [place] (1.001-1.035) Urine Protein (Negative) Urine Glucose (UA) (Negative) Urine Ketones (Negative) Urine Blood (Negative) Urine Nitrite (Negative) Urine Bilirubin (Negative) Urine Urobilinogen (<2.0) mg/dL Ur Leukocyte Esterase (Negative) Urine RBC (0-5) /hpf Acetone, Qual (Negative) Influenza Type A (PCR) (Not Detectd) Influenza Type B (PCR) (Not Detectd) RSV (PCR) (Not Detectd) SARS-CoV-2 (PCR) (Not Detectd) Blood Type A Positive Blood Type Recheck A Pos Bld Type Recheck Status No Antibody Screen NEGATIVE Spec Expiration Date 07/21/2024 - 233007/18/24 07/18/24 07/18/24 Range/Units 20:08 20:08 20:15 WBC (3.8-10.6) k/uL RBC (4.30-5.90) m/uL Hgb (13.0-17.5) gm/dL Hct (39.0-53.0) % MCV (80.0-100.0) fL MCH (25.0-35.0) pg MCHC (31.0-37.0) g/dL RDW (11.5-15.5) % Plt Count (150-450) k/uL MPV Neutrophils % % Lymphocytes % % Monocytes % % Eosinophils % % Basophils % % Neutrophils # (1.3-7.7) k/uL Lymphocytes # (1.0-4.8) k/uL Monocytes # (0-1.0) k/uL Eosinophils # (0-0.7) k/uL Basophils # (0-0.2) k/uL Hypochromasia Poikilocytosis Anisocytosis Macrocytosis PT 11.2 (10.0-12.5) sec INR 1.0 (<1.2) APTT 18.7 L (22.0-30.0) sec VBG pH (7.31-7.41) VBG pCO2 (37-51) mmHg VBG HCO3 (24-28) mmol/L Sodium (137-145) mmol/L Potassium (3.5-5.1) mmol/L Chloride (98-107) mmol/L Carbon Dioxide (22-30) mmol/L Anion Gap mmol/L BUN (9-20) mg/dL Creatinine (0.66-1.25) mg/dL Est GFR (CKD-EPI)AfAm (>60 ml/min/1.73 sqM) Est GFR (CKD-EPI)NonAf (>60 ml/min/1.73 sqM) Glucose (74-99) mg/dL POC Glucose (mg/dL) (70-110) mg/dL POC Glu Hair Boiler ID Lactic Ac Sepsis Rflx Plasma Lactic Acid Lui 2.5 H* (0.7-2.0) mmol/L Calcium (8.4-10.2) mg/dL Phosphorus (2.5-4.5) mg/dL Magnesium (1.6-2.3) mg/dL Total Bilirubin (0.2-1.3) mg/dL AST (17-59) U/L ALT (4-49) U/L Alkaline Phosphatase (38-126) U/L Total Protein (6.3-8.2) g/dL Albumin (3.5-5.0) g/dL Amylase (30-110) U/L Lipase (23-300) U/L Urine Color Colorless Urine Appearance Clear (Clear) Urine pH 5.0 (5.0-8.0) Ur Specific [place] 1.027 (1.001-1.035) Urine Protein Negative (Negative) Urine Glucose (UA) 4+ H (Negative) Urine Ketones Negative (Negative) Urine Blood Trace H (Negative) Urine Nitrite Negative (Negative) Urine Bilirubin Negative (Negative) Urine Urobilinogen <2.0 (<2.0) mg/dL Ur Leukocyte Esterase Negative (Negative) Urine RBC <1 (0-5) /hpf Acetone, Qual (Negative) Influenza Type A (PCR) (Not Detectd) Influenza Type B (PCR) (Not Detectd) RSV (PCR) (Not Detectd) SARS-CoV-2 (PCR) (Not Detectd) Blood Type Blood Type Recheck Bld Type Recheck Status Antibody Screen Spec Expiration Date 07/18/24 07/18/24 07/18/24 Range/Units 20:44 20:52 21:03 WBC (3.8-10.6) k/uL RBC (4.30-5.90) m/uL Hgb (13.0-17.5) gm/dL Hct (39.0-53.0) % MCV (80.0-100.0) fL MCH (25.0-35.0) pg MCHC (31.0-37.0) g/dL RDW (11.5-15.5) % Plt Count (150-450) k/uL MPV Neutrophils % % Lymphocytes % % Monocytes % % Eosinophils % % Basophils % % Neutrophils # (1.3-7.7) k/uL Lymphocytes # (1.0-4.8) k/uL Monocytes # (0-1.0) k/uL Eosinophils # (0-0.7) k/uL Basophils # (0-0.2) k/uL Hypochromasia Poikilocytosis Anisocytosis Macrocytosis PT (10.0-12.5) sec INR (<1.2) APTT (22.0-30.0) sec VBG pH (7.31-7.41) VBG pCO2 (37-51) mmHg VBG HCO3 (24-28) mmol/L Sodium (137-145) mmol/L Potassium (3.5-5.1) mmol/L Chloride (98-107) mmol/L Carbon Dioxide (22-30) mmol/L Anion Gap mmol/L BUN (9-20) mg/dL Creatinine (0.66-1.25) mg/dL Est GFR (CKD-EPI)AfAm (>60 ml/min/1.73 sqM) Est GFR (CKD-EPI)NonAf (>60 ml/min/1.73 sqM) Glucose (74-99) mg/dL POC Glucose (mg/dL) 512 H* 472 H (70-110) mg/dL POC Glu Hair Boiler ID [place] [facility] Lactic Ac Sepsis Rflx Y Plasma Lactic Acid Lui (0.7-2.0) mmol/L Calcium (8.4-10.2) mg/dL Phosphorus (2.5-4.5) mg/dL Magnesium (1.6-2.3) mg/dL Total Bilirubin (0.2-1.3) mg/dL AST (17-59) U/L ALT (4-49) U/L Alkaline Phosphatase (38-126) U/L Total Protein (6.3-8.2) g/dL Albumin (3.5-5.0) g/dL Amylase (30-110) U/L Lipase (23-300) U/L Urine Color Urine Appearance (Clear) Urine pH (5.0-8.0) Ur Specific [place] (1.001-1.035) Urine Protein (Negative) Urine Glucose (UA) (Negative) Urine Ketones (Negative) Urine Blood (Negative) Urine Nitrite (Negative) Urine Bilirubin (Negative) Urine Urobilinogen (<2.0) mg/dL Ur Leukocyte Esterase (Negative) Urine RBC (0-5) /hpf Acetone, Qual (Negative) Influenza Type A (PCR) (Not Detectd) Influenza Type B (PCR) (Not Detectd) RSV (PCR) (Not Detectd) SARS-CoV-2 (PCR) (Not Detectd) Blood Type Blood Type Recheck Bld Type Recheck Status Antibody Screen Spec Expiration Date Disposition <Fabio Oliveira - Last Filed: 07/18/24 16:02> <Chayito Shahid - Last Filed: 07/19/24 00:16> Clinical Impression: Hyperglycemia, Anemia of unknown etiology, Nausea and vomiting Disposition: ADMITTED IP TO THIS HOSP
[2024-07-18 16:17] LABS: Glucose,Whole Blood >600 mg/dL (70-110)
[2024-07-18] MEDS: SODIUM CHLORIDE 0.9% 1,000 ML IV SCH ×2 (16:51→19:12)
[2024-07-18] MEDS: ONDANSETRON 4 MG/2 ML VIAL IVP STA (16:52)
[2024-07-18] MEDS: FAMOTIDINE 20 MG/2 ML VIAL IV STA (16:53)
[2024-07-18 16:58] LABS: VBG PH 7.37 (7.31-7.41)
[2024-07-18 16:59] LABS: Anisocytosis Slight; Basophils % (A) 0 %; Eosinophils % (A) 0 %; HCT 23.1 % (39.0-53.0); Hypochromasia Slight; Lymphocytes # (A) 1.5 k/uL (1.0-4.8); Lymphocytes % (A) 10 %; MCHC 31.1 g/dL (31.0-37.0); Macrocytosis Slight; Mean Platelet Volume 9.1; Monocytes # (A) 0.5 k/uL (0-1.0); Monocytes % (A) 3 %; Neutrophils # (A) 12.7 k/uL (1.3-7.7); Neutrophils % (A) 85 %; Poikilocytosis Slight; RBC 2.39 m/uL (4.30-5.90); RDW 18.1 % (11.5-15.5); WBC 14.9 k/uL (3.8-10.6)
--- NOTE | 2024-07-18 17:09 | XR ---
EXAMINATION TYPE: XR chest 2V DATE OF EXAM: 07/18/2024 5:03 PM . COMPARISON: Chest radiographs from 12/03/2022. CLINICAL INDICATION: Male, 73 years old with history of Cough; TECHNIQUE: XR chest 2V Frontal and lateral views of the chest. FINDINGS: Lungs/Pleura: There is no evidence of pleural effusion, focal consolidation, or pneumothorax. Pulmonary vascularity: Unremarkable. Heart/mediastinum: Cardiomediastinal silhouette is unremarkable. Musculoskeletal: No acute osseous pathology. IMPRESSION: No acute cardiopulmonary disease/process. [facility], , 07/18/2024 5:07 PM
[2024-07-18 17:11] LABS: ALT 20 U/L (4-49); AST 31 U/L (17-59); African American GFR (CKD) 50 (>60 ml/min/1.73 sqM); Albumin 3.4 g/dL (3.5-5.0); Alkaline Phosphatase 52 U/L (38-126); Amylase 100 U/L (30-110); Anion Gap 11 mmol/L; Blood Urea Nitrogen 43 mg/dL (9-20); Calcium 9.3 mg/dL (8.4-10.2); Carbon Dioxide 20 mmol/L (22-30); Chloride 96 mmol/L (98-107); Lipase 617 U/L (23-300); Magnesium 2.1 mg/dL (1.6-2.3); Non-African American GFR(CKD) 44 (>60 ml/min/1.73 sqM); Phosphorus 4.5 mg/dL (2.5-4.5); Potassium 5.7 mmol/L (3.5-5.1); Sodium 127 mmol/L (137-145); Total Bilirubin 0.6 mg/dL (0.2-1.3); Total Protein 5.5 g/dL (6.3-8.2)
[2024-07-18 17:15] LABS: HGB 7.2 gm/dL (13.0-17.5); MCV 96.4 fL (80.0-100.0)
[2024-07-18 17:16] LABS: Platelet Count 378 k/uL (150-450)
[2024-07-18 17:19] LABS: Glucose 617 mg/dL (74-99)
[2024-07-18] MEDS ORDERED: MORPHINE SULFATE 4 MG/ML SYRINGE IV PRN (17:43)
[2024-07-18] MEDS ORDERED: ONDANSETRON 4 MG/2 ML VIAL IVP PRN (17:43)
[2024-07-18] MEDS ORDERED: ACETAMINOPHEN TAB 325 MG TAB PO PRN (17:43)
[2024-07-18] MEDS ORDERED: NALOXONE 0.4 MG/ML 1 ML VIAL IV PRN (17:43)
[2024-07-18] MEDS ORDERED: HYDROcodone/APAP 5-325MG 1 EACH TAB PO PRN (17:43)
[2024-07-18 17:47] LABS: Influenza A Not Detected (Not Detectd); Influenza B Not Detected (Not Detectd); RSV Not Detected (Not Detectd)
[2024-07-18] MEDS: INSULIN REGULAR 100 UNIT/ML VIAL (IV) IV ONE ×3 (18:01→21:26)
[2024-07-18] MEDS: PANTOPRAZOLE 40 MG/10 ML VIAL IVP STA (19:12)
[2024-07-18 19:41] LABS: Glucose,Whole Blood 509 mg/dL (70-110)
[2024-07-18 20:27] LABS: Appearance,Urine Clear (Clear); Bilirubin,Urine Negative (Negative); Blood,Urine Trace (Negative); Color,Urine Colorless; Glucose,Urine (UA) 4+ (Negative); Ketones,Urine Negative (Negative); Leukocyte Esterase,Urine Negative (Negative); Nitrite,Urine Negative (Negative); Protein,Urine Negative (Negative); RBC,Urine <1 /hpf (0-5); Specific Gravity,Urine 1.027 (1.001-1.035); Urobilinogen,Urine <2.0 mg/dL (<2.0)
[2024-07-18 20:40] LABS: Prothrombin Time 11.2 sec (10.0-12.5)
[2024-07-18 20:41] LABS: Partial Thromboplastin Time 18.7 sec (22.0-30.0)
[2024-07-18] MEDS: chlorproMAZINE 25 MG/ML 2 ML AMP IM STA (20:41)
[2024-07-18 21:05] LABS: Glucose,Whole Blood 512 mg/dL (70-110)
[2024-07-18 21:05] LABS: Glucose,Whole Blood 472 mg/dL (70-110)
[2024-07-18] MEDS: ATORVASTATIN 40 MG TAB PO SCH (21:10)
[2024-07-18] MEDS: METOCLOPRAMIDE 5 MG/ML 2 ML VIAL IVP STA (22:04)
[2024-07-18 22:41] LABS: Anisocytosis Slight; Hypochromasia Slight; MCH 30.4 pg (25.0-35.0); MCHC 31.8 g/dL (31.0-37.0); MCV 95.4 fL (80.0-100.0); Macrocytosis Slight; Mean Platelet Volume 8.7; Platelet Count 257 k/uL (150-450); Poikilocytosis Slight; RBC 1.88 m/uL (4.30-5.90); WBC 10.6 k/uL (3.8-10.6)
[2024-07-18 22:52] LABS: African American GFR (CKD) 57 (>60 ml/min/1.73 sqM); Anion Gap 8 mmol/L; Blood Urea Nitrogen 35 mg/dL (9-20); Carbon Dioxide 20 mmol/L (22-30); Chloride 104 mmol/L (98-107); Glucose 310 mg/dL (74-99); Non-African American GFR(CKD) 49 (>60 ml/min/1.73 sqM); Potassium 3.9 mmol/L (3.5-5.1); Sodium 132 mmol/L (137-145)
[2024-07-18] MEDS: TIMOLOL 0.5% OPHTH DROPS 5 ML BTL BOTH EYES SCH (23:17)
[2024-07-19 00:12] LABS: HCT 17.9 % (39.0-53.0)
[2024-07-19 00:13] LABS: HGB 5.7 gm/dL (13.0-17.5)
[2024-07-19] MEDS ORDERED: DEXTROSE 50% SYRINGE 50 ML IVP PRN ×2 (00:20)
[2024-07-19] MEDS: LEVOTHYROXINE 50 MCG TAB PO SCH (06:51)
[2024-07-19 07:49] LABS: Anisocytosis Slight; HCT 26.5 % (39.0-53.0); Hypochromasia Slight; MCH 29.5 pg (25.0-35.0); MCHC 31.2 g/dL (31.0-37.0); MCV 94.7 fL (80.0-100.0); Mean Platelet Volume 9.1; Platelet Count 201 k/uL (150-450); RDW 16.1 % (11.5-15.5); WBC 9.6 k/uL (3.8-10.6)
[2024-07-19 07:56] LABS: HGB 8.3 gm/dL (13.0-17.5)
[2024-07-19 08:01] LABS: Glucose,Whole Blood 417 mg/dL (70-110)
[2024-07-19] MEDS: INSULIN LISPRO (HumaLOG) 100 UNIT/ML 10 mL VL SQ SCH (08:24)
[2024-07-19] MEDS: CHOLECALCIFEROL 25 MCG (1000 IU) TABLET PO SCH (08:24)
[2024-07-19] MEDS: PANTOPRAZOLE 40 MG/10 ML VIAL IV SCH (08:25)
[2024-07-19 09:44] LABS: % Iron Saturation 9.54 (15.00-50.00)
[2024-07-19 11:38] LABS: Glucose,Whole Blood 267 mg/dL (70-110)
--- NOTE | 2024-07-19 11:39 | P.CONS ---
History of Present Illness - Reason for Consult Consult date: 07/19/24 Anemia, recent GI bleed Requesting physician: Chayito Shahid - Chief Complaint Hyperglycemia, weakness - History of Present Illness This a pleasant 73-year-old male with a past medical history including diabetes mellitus, hyperlipidemia, sleep apnea, thyroid disorder and cataract who had presented to the emergency department for high blood sugars at home and feeling off as well as weakness. Patient states his was recently sick and then he started getting sick with a cough and congestion. He had called his primary care physician Dr. Ashley and was started on a Z-Quan and Medrol dose pack. After starting the new medications he started having nausea and vomiting. When he presented to the emergency department he had blood work done and showed he was anemic. He had repeat blood work done with a drop in his hemoglobin from 7.4- 5.7. He was transfused 2 units of blood. Patient states he was seen in the emergency department and admitted about a week ago with bloody bowel movements. Patient states he had multiple episodes of rectal bleeding from Thursday into Thursday a week ago. He had a CT of the abdomen and pelvis that showed duodenitis and sigmoid diverticulosis without evidence of diverticulitis. He was discharged home. Prior to that he had a colonoscopy for colon screening on 07/08/[address] Rodriguez with findings of sigmoid diverticulosis. Patient states he has been having bowel movements over the last few days and they have been dark purple possibly black. He denies any use of anticoagulation. He is on daily baby aspirin. No regular NSAID use but was started on a Medrol Dosepak. He has had no vomiting since yesterday and has stopped taking his azithromycin. He denied any coffee-ground emesis or hematemesis. No bright red blood in his stool or rectal bleeding. States he has a little bit of mid to lower abdominal pain. No history of upper GI bleed, peptic ulcer disease or previous upper endoscopy. Review of Systems REVIEW OF SYSTEMS: CARDIOPULMONARY: No chest pain or shortness of breath. Cough and congestion. Gastrointestinal: Abdominal pain. Nausea with vomiting, now resolved. No hem atemesis, coffee-ground emesis. No rectal bleeding, or melena. Patient reports dark purple stool. GENITOURINARY: No dysuria or hematuria. MUSCULOSKELETAL: Reports normal range of motion., Joint pain. SKIN: No rashes. No jaundice. ENDOCRINE: No chills, fevers. No excessive weight gain or loss. No polydipsia or polyuria. PSYCHIATRIC: Unremarkable. NEUROLOGY: No change in mental status. Denies dizziness, headache. ENT: Vision unremarkable. CONSTITUTIONAL: No recent weight loss. No fever, chills, night sweats. Cough and congestion. Past Medical History Past Medical History: Chest Pain / Angina, Diabetes Mellitus, Eye Disorder, Hyperlipidemia, Sleep Apnea/CPAP/BIPAP, Thyroid Disorder Additional Past Medical History / Comment(s): hx kidney stones, CATARACTS, GLAUCOMA,10/24 chest pain, cpap History of Any Multi-Drug Resistant Organisms: None Reported Past Surgical History: Heart Catheterization Additional Past Surgical History / Comment(s): 08/14/16 LEFT and right EYE CATARACT SX WITH ISTENT, Past Anesthesia/Blood Transfusion Reactions: No Reported Reaction Additional Past Anesthesia/Blood Transfusion Reaction / Comm: no blood transfusion Past Psychological History: No Psychological Hx Reported Smoking Status: Never smoker Past Alcohol Use History: None Reported Past Drug Use History: None Reported - Past Family History Sister(s) Family Medical History: Cancer Additional Family Medical History / Comment(s): breast Mother Family Medical History: Cancer Additional Family Medical History / Comment(s): leg Medications and Allergies Home Medications Medication Instructions Recorded Confirmed Type Aspirin [Adult Low Dose Aspirin EC] 81 mg PO DAILY 08/13/15 07/18/24 History metFORMIN HCL [Glucophage] 1,000 mg PO W/BRKFST 08/13/15 07/18/24 History Cholecalciferol [Vitamin D3 (25 50 mcg PO DAILY 12/03/22 07/18/24 History Mcg = 1000 Iu)] Glimepiride [Amaryl] 1 mg PO W/BRKFST 12/03/22 07/18/24 History Levothyroxine Sodium [Synthroid] 50 mcg PO DAILY 12/03/22 07/18/24 History Atorvastatin [Lipitor] 40 mg PO HS #30 tab 12/05/22 07/18/24 Rx metFORMIN HCL 500 mg PO W/SUPPER #0 12/05/22 07/18/24 Rx Azithromycin [Zithromax Z Pack] See Taper PO DIRECTED 07/18/24 07/18/24 Hist ory Timolol 0.5% Ophth Soln [Timoptic 1 drop BOTH EYES HS 07/18/24 07/18/24 History 0.5% Ophth Soln] methylPREDNISolone [Medrol Dose See Taper PO DIRECTED 07/18/24 07/18/24 History Pack] Allergies Allergy/AdvReac Type Severity Reaction Status Date / Time No Known Allergies Allergy Verified 07/18/24 16:52 Physical Exam Vitals: Vital Signs Temp Pulse Resp BP Pulse Ox 07/19/24 06:25 81 18 104/55 100 07/19/24 05:15 97.7 F 69 18 103/48 96 07/19/24 04:17 97.9 F 75 16 100/55 96 07/19/24 04:15 97.5 F L 79 18 110/61 98 07/19/24 04:01 98.0 F 73 16 111/58 96 07/19/24 03:55 97.9 F 72 16 100/55 96 07/19/24 03:40 97.7 F 69 15 96/46 07/19/24 03:20 98.5 F 71 18 104/50 07/19/24 03:16 98.3 F 73 18 109/53 96 07/19/24 01:58 97.8 F 76 18 105/56 96 07/19/24 01:38 97.9 F 77 18 109/56 96 07/19/24 01:24 97.8 F 80 18 108/55 96 07/19/24 00:40 79 18 97/52 07/18/24 23:15 81 18 104/59 92 L 07/18/24 20:33 97.8 F 88 18 111/66 95 07/18/24 18:19 91 112/70 07/18/24 16:14 98.3 F 108 H 20 120/72 96 Intake and Output 07/18/24 07/19/24 07/19/24 22:59 06:59 14:59 Intake Total 620 Balance 620 Intake: Blood Product 620 Rc As-1 Unit 310 [id number] Rc As-1 Unit 310 [id number] Other: Weight 64.41 kg General appearance: The patient is alert, oriented, appears in no acute distress . HET: Head is normocephalic and atraumatic. Conjunctiva pink. Sclera anicteric. Neck: Supple without lymphadenopathy. Trachea midline. Heart: Regular. Lungs: Equal expansion, normal respiratory effort. Abdomen: Soft, nontender, nondistended. Skin: No rashes. No jaundice. Extremities: Normal skin color and turgor. No pedal edema. Neurological: No focal deficits. Alert and oriented x3. Results CBC & Chem 7: 07/19/24 07:12 07/18/24 22:17 Labs: Abnormal Lab Results - Last 24 Hours (Table) 07/18/24 07/18/24 07/18/24 Range/Units 16:15 16:47 16:47 WBC 14.9 H (3.8-10.6) k/uL RBC 2.39 L (4.30-5.90) m/uL Hgb 7.2 L D (13.0-17.5) gm/dL Hct 23.1 L (39.0-53.0) % RDW 18.1 H (11.5-15.5) % Neutrophils # 12.7 H (1.3-7.7) k/uL APTT (22.0-30.0) sec VBG HCO3 (24-28) mmol/L Sodium 127 L (137-145) mmol/L Potassium 5.7 H (3.5-5.1) mmol/L Chloride 96 L (98-107) mmol/L Carbon Dioxide 20 L (22-30) mmol/L BUN 43 H (9-20) mg/dL Creatinine 1.55 H (0.66-1.25) mg/dL Glucose 617 H* (74-99) mg/dL POC Glucose (mg/dL) >600 H* (70-110) mg/dL Plasma Lactic Acid Lui (0.7-2.0) mmol/L Calcium (8.4-10.2) mg/dL Total Protein 5.5 L (6.3-8.2) g/dL Albumin 3.4 L (3.5-5.0) g/dL Lipase 617 H (23-300) U/L Urine Glucose (UA) (Negative) Urine Blood (Negative) SARS-CoV-2 (PCR) (Not Detectd) Crossmatch 07/18/24 07/18/24 07/18/24 Range/Units 16:47 16:47 16:56 WBC (3.8-10.6) k/uL RBC (4.30-5.90) m/uL Hgb (13.0-17.5) gm/dL Hct (39.0-53.0) % RDW (11.5-15.5) % Neutrophils # (1.3-7.7) k/uL APTT (22.0-30.0) sec VBG HCO3 22 L (24-28) mmol/L Sodium (137-145) mmol/L Potassium (3.5-5.1) mmol/L Chloride (98-107) mmol/L Carbon Dioxide (22-30) mmol/L BUN (9-20) mg/dL Creatinine (0.66-1.25) mg/dL Glucose (74-99) mg/dL POC Glucose (mg/dL) (70-110) mg/dL Plasma Lactic Acid Lui 3.6 H* (0.7-2.0) mmol/L Calcium (8.4-10.2) mg/dL Total Protein (6.3-8.2) g/dL Albumin (3.5-5.0) g/dL Lipase (23-300) U/L Urine Glucose (UA) (Negative) Urine Blood (Negative) SARS-CoV-2 (PCR) Detected A (Not Detectd) Crossmatch 07/18/24 07/18/24 07/18/24 Range/Units 17:31 19:39 20:08 WBC (3.8-10.6) k/uL RBC (4.30-5.90) m/uL Hgb (13.0-17.5) gm/dL Hct (39.0-53.0) % RDW (11.5-15.5) % Neutrophils # (1.3-7.7) k/uL APTT 18.7 L (22.0-30.0) sec VBG HCO3 (24-28) mmol/L Sodium (137-145) mmol/L Potassium (3.5-5.1) mmol/L Chloride (98-107) mmol/L Carbon Dioxide (22-30) mmol/L BUN (9-20) mg/dL Creatinine (0.66-1.25) mg/dL Glucose (74-99) mg/dL POC Glucose (mg/dL) 509 H* (70-110) mg/dL Plasma Lactic Acid Lui (0.7-2.0) mmol/L Calcium (8.4-10.2) mg/dL Total Protein (6.3-8.2) g/dL Albumin (3.5-5.0) g/dL Lipase (23-300) U/L Urine Glucose (UA) (Negative) Urine Blood (Negative) SARS-CoV-2 (PCR) (Not Detectd) Crossmatch See Detail 07/18/24 07/18/24 07/18/24 Range/Units 20:08 20:15 20:52 WBC (3.8-10.6) k/uL RBC (4.30-5.90) m/uL Hgb (13.0-17.5) gm/dL Hct (39.0-53.0) % RDW (11.5-15.5) % Neutrophils # (1.3-7.7) k/uL APTT (22.0-30.0) sec VBG HCO3 (24-28) mmol/L Sodium (137-145) mmol/L Potassium (3.5-5.1) mmol/L Chloride (98-107) mmol/L Carbon Dioxide (22-30) mmol/L BUN (9-20) mg/dL Creatinine (0.66-1.25) mg/dL Glucose (74-99) mg/dL POC Glucose (mg/dL) 512 H* (70-110) mg/dL Plasma Lactic Acid Lui 2.5 H* (0.7-2.0) mmol/L Calcium (8.4-10.2) mg/dL Total Protein (6.3-8.2) g/dL Albumin (3.5-5.0) g/dL Lipase (23-300) U/L Urine Glucose (UA) 4+ H (Negative) Urine Blood Trace H (Negative) SARS-CoV-2 (PCR) (Not Detectd) Crossmatch 07/18/24 07/18/24 07/18/24 Range/Units 21:03 22:17 22:17 WBC (3.8-10.6) k/uL RBC 1.88 L (4.30-5.90) m/uL Hgb 5.7 L* D (13.0-17.5) gm/dL Hct 17.9 L* (39.0-53.0) % RDW 18.0 H (11.5-15.5) % Neutrophils # (1.3-7.7) k/uL APTT (22.0-30.0) sec VBG HCO3 (24-28) mmol/L Sodium 132 L (137-145) mmol/L Potassium (3.5-5.1) mmol/L Chloride (98-107) mmol/L Carbon Dioxide 20 L (22-30) mmol/L BUN 35 H (9-20) mg/dL Creatinine 1.40 H (0.66-1.25) mg/dL Glucose 310 H (74-99) mg/dL POC Glucose (mg/dL) 472 H (70-110) mg/dL Plasma Lactic Acid Lui (0.7-2.0) mmol/L Calcium 8.0 L (8.4-10.2) mg/dL Total Protein (6.3-8.2) g/dL Albumin (3.5-5.0) g/dL Lipase (23-300) U/L Urine Glucose (UA) (Negative) Urine Blood (Negative) SARS-CoV-2 (PCR) (Not Detectd) Crossmatch 07/18/24 07/19/24 Range/Units 23:07 07:12 WBC (3.8-10.6) k/uL RBC 2.80 L (4.30-5.90) m/uL Hgb 8.3 L D (13.0-17.5) gm/dL Hct 26.5 L (39.0-53.0) % RDW 16.1 H (11.5-15.5) % Neutrophils # (1.3-7.7) k/uL APTT (22.0-30.0) sec VBG HCO3 (24-28) mmol/L Sodium (137-145) mmol/L Potassium (3.5-5.1) mmol/L Chloride (98-107) mmol/L Carbon Dioxide (22-30) mmol/L BUN (9-20) mg/dL Creatinine (0.66-1.25) mg/dL Glucose (74-99) mg/dL POC Glucose (mg/dL) (70-110) mg/dL Plasma Lactic Acid Lui 2.8 H* (0.7-2.0) mmol/L Calcium (8.4-10.2) mg/dL Total Protein (6.3-8.2) g/dL Albumin (3.5-5.0) g/dL Lipase (23-300) U/L Urine Glucose (UA) (Negative) Urine Blood (Negative) SARS-CoV-2 (PCR) (Not Detectd) Crossmatch Comments: Chest x-ray reports no acute cardiopulmonary disease/process Assessment and Plan (1) Anemia Narrative/Plan: 73-year-old male with recent hospitalization for lower GI bleed with bright red blood discharge little over a week ago thought to be likely diverticular bleed presents to the emergency department for hyperglycemia and positive COVID-19 infection. Started recently on azithromycin and Medrol Dosepak by his primary care provider. Had subsequent nausea and vomiting without any hematemesis or coffee-ground emesis however patient reports black stools over last few days duration. He was noted to be anemic on admission with a further drop in his hemoglobin down as low as 5.7 with a normocytic normochromic anemia requiring 2 units of blood. Iron was low at 23 saturation low at 9.5 ferritin was not collected. Elevated BUN. Need to consider possible upper GI bleed as source for anemia. No need for lower endoscopy has patient just had colonoscopy 2 weeks ago. Current Visit: Yes Status: Acute Code(s): D64.9 - ANEMIA, UNSPECIFIED SNOMED Code(s): 777262198 (2) Dark stools Current Visit: Yes Status: Acute Code(s): R19.5 - OTHER FECAL ABNORMALITIES SNOMED Code(s): 87378514 (3) Nausea and vomiting Narrative/Plan: Resolved Current Visit: Yes Status: Acute Code(s): R11.2 - NAUSEA WITH VOMITING, UNSPECIFIED SNOMED Code(s): 19448534 Plan: 1. Continue symptomatic and supportive care 2. Patient may have clear liquid diet, n.p.o. after midnight 3. Avoid NSAIDs 4. Protonix 40 mg daily 5. Daily CBC, transfuse for hemoglobin less than 7 6. Will plan for upper endoscopy tomorrow 7. Rest of medical management per primary medical team Thank you for this consultation, we will continue to follow. Dr. Nghia Zhu I agree with the dictator's note, documented as a scribe by Vale Lee.
[2024-07-19 17:06] LABS: Glucose,Whole Blood 242 mg/dL (70-110)
[2024-07-19 20:18] LABS: Glucose,Whole Blood 255 mg/dL (70-110)
--- NOTE | 2024-07-19 23:07 | P.HPIM ---
History of Present Illness H&P Date: 07/19/24 This a pleasant 73-year-old male with a past medical history including diabetes mellitus, hyperlipidemia, sleep apnea, thyroid disorder and cataract who had presented to the emergency department for high blood sugars at home and feeling off as well as weakness. Patient states his was recently sick and then he started getting sick with a cough and congestion apparently Covid positive. He had repeat blood work done with a drop in his hemoglobin from 7.4-5.7. He was transfused 2 units of blood. Patient states he was seen in the emergency department and admitted about a week ago with bloody bowel movements. Patient states he had multiple episodes of rectal bleeding from Thursday into Thursday a week ago. He had a CT of the abdomen and pelvis that showed duodenitis and sigmoid diverticulosis without evidence of diverticulitis. He was discharged home. Prior to that he had a colonoscopy for colon screening on 07/08/[address] Rodriguez with findings of sigmoid diverticulosis. Patient states he has been having bowel movements over the last few days and they have been dark purple possibly black. He denies any use of anticoagulation. He is on daily baby aspirin. No regular NSAID use but was started on a Medrol Dosepak. He has had no vomiting since yesterday and has stopped taking his azithromycin. He denied any coffee-ground emesis or hematemesis. No bright red blood in his stool or rectal bleeding. States he has a little bit of mid to lower abdominal pain. No history of upper GI bleed, peptic ulcer disease or previous upper endoscopy. Review of Systems GENERAL: Patient fever chills. EYES: Denies blurred vision. Denies vision changes. Denies eye pain. EARS, NOSE, MOUTH, & THROAT: Denies headache. Denies sore throat. Denies ear pain. RESPIRATORY: Denies cough. Denies shortness of breath. Denies sputum production. Denies hemoptysis. CARDIOVASCULAR: Denies chest pain or pressure. Denies palpitations. Denies arrhythmias. GASTROINTESTINAL: Denies abdominal pain. Denies diarrhea. Denies constipation. Denies nausea. Denies vomiting. Denies heartburn. Denies blood in the stool. GENITOURINARY: Denies urinary frequency. Denies burning. Denies dysuria. Denies cloudy urine. Denies blood in the urine. MUSCULOSKELETAL: Weakness and myalgias. Denies joint swelling. Denies decreased range of motion beyond patients baseline. INTEGUMENTARY: Denies pruitis. Denies rash. PSYCHIATRIC: Denies suicidal or homicial ideations. ENDOCRINE: Denies weight change. Denies polydipsia. Denies polyuria. HEMATOLOGIC: Denies bleeding disorders. Past Medical History Past Medical History: Chest Pain / Angina, Diabetes Mellitus, Eye Disorder, Hyperlipidemia, Sleep Apnea/CPAP/BIPAP, Thyroid Disorder Additional Past Medical History / Comment(s): hx kidney stones, CATARACTS, GLAUCOMA,10/24 chest pain, cpap History of Any Multi-Drug Resistant Organisms: None Reported Past Surgical History: Heart Catheterization Additional Past Surgical History / Comment(s): 08/14/16 LEFT and right EYE CATARACT SX WITH ISTENT, Past Anesthesia/Blood Transfusion Reactions: No Reported Reaction Additional Past Anesthesia/Blood Transfusion Reaction / Comment(s): no blood tr ansfusion Past Psychological History: No Psychological Hx Reported Smoking Status: Never smoker Past Alcohol Use History: None Reported Past Drug Use History: None Reported - Past Family History Sister(s) Family Medical History: Cancer Additional Family Medical History / Comment(s): breast Mother Family Medical History: Cancer Additional Family Medical History / Comment(s): leg Father History Unknown: Yes Medications and Allergies Home Medications Medication Instructions Recorded Confirmed Type Aspirin [Adult Low Dose Aspirin EC] 81 mg PO DAILY 08/13/15 07/18/24 History metFORMIN HCL [Glucophage] 1,000 mg PO W/BRKFST 08/13/15 07/18/24 History Cholecalciferol [Vitamin D3 (25 50 mcg PO DAILY 12/03/22 07/18/24 History Mcg = 1000 Iu)] Glimepiride [Amaryl] 1 mg PO W/BRKFST 12/03/22 07/18/24 History Levothyroxine Sodium [Synthroid] 50 mcg PO DAILY 12/03/22 07/18/24 History Atorvastatin [Lipitor] 40 mg PO HS #30 tab 12/05/22 07/18/24 Rx metFORMIN HCL 500 mg PO W/SUPPER #0 12/05/22 07/18/24 Rx Azithromycin [Zithromax Z Pack] See Taper PO DIRECTED 07/18/24 07/18/24 History Timolol 0.5% Ophth Soln [Timoptic 1 drop BOTH EYES HS 07/18/24 07/18/24 History 0.5% Ophth Soln] methylPREDNISolone [Medrol Dose See Taper PO DIRECTED 07/18/24 07/18/24 History Pack] Allergies Allergy/AdvReac Type Severity Reaction Status Date / Time No Known Allergies Allergy Verified 07/18/24 16:52 Physical Exam Vitals: Vital Signs Temp Pulse Resp BP Pulse Ox 07/19/24 11:59 64 16 96/61 99 07/19/24 06:25 81 18 104/55 100 07/19/24 05:15 97.7 F 69 18 103/48 96 07/19/24 04:17 97.9 F 75 16 100/55 96 07/19/24 04:15 97.5 F L 79 18 110/61 98 07/19/24 04:01 98.0 F 73 16 111/58 96 07/19/24 03:55 97.9 F 72 16 100/55 96 07/19/24 03:40 97.7 F 69 15 96/46 07/19/24 03:20 98.5 F 71 18 104/50 07/19/24 03:16 98.3 F 73 18 109/53 96 07/19/24 01:58 97.8 F 76 18 105/56 96 07/19/24 01:38 97.9 F 77 18 109/56 96 07/19/24 01:24 97.8 F 80 18 108/55 96 07/19/24 00:40 79 18 97/52 07/18/24 23:15 81 18 104/59 92 L 07/18/24 20:33 97.8 F 88 18 111/66 95 07/18/24 18:19 91 112/70 07/18/24 16:14 98.3 F 108 H 20 120/72 96 Intake and Output 07/19/24 07/19/24 07/19/24 06:59 14:59 22:59 Intake Total 620 Balance 620 Intake: Blood Product 620 As-1 Unit 310 [id number] As-1 Unit 310 [id number] GENERAL: This is a 73-year-old . Pleasant and cooperative. HEENT: Head is atraumatic, normocephalic. Pupils are equal, round, and reactive to light. Sclerae anicteric. Conjunctivae are clear. Mucus membranes of the mouth are moist. Neck is supple. RESPIRATORY: With congestion and slight cough. CARDIOVASCULAR: Regular rate and rhythm. S1 and S2 noted. GASTROINTESTINAL: No distention noted. Abdomen soft and round. Normal active bowel sounds auscultated x 4 quadrants. No pain or tenderness noted upon palpation. INTEGUMENTARY: No cyanosis. No jaundice. No rashes noted. No cellulitis noted. EXTREMITIES: 2+ peripheral pulses. No evidence of peripheral edema. No calf tenderness noted. NEUROLOGIC: Cranial nerves II-XII intact. PSYCHIATRIC: Awake, alert, and oriented X 3. Appropriate affect. Intact judgement and insight. He has been Results CBC & Chem 7: 07/19/24 07:12 07/18/24 22:17 Labs: Abnormal Lab Results - Last 24 Hours (Table) 07/18/24 07/18/24 07/18/24 Range/Units 16:15 16:47 16:47 WBC 14.9 H (3.8-10.6) k/uL RBC 2.39 L (4.30-5.90) m/uL Hgb 7.2 L D (13.0-17.5) gm/dL Hct 23.1 L (39.0-53.0) % RDW 18.1 H (11.5-15.5) % Neutrophils # 12.7 H (1.3-7.7) k/uL APTT (22.0-30.0) sec VBG HCO3 (24-28) mmol/L Sodium 127 L (137-145) mmol/L Potassium 5.7 H (3.5-5.1) mmol/L Chloride 96 L (98-107) mmol/L Carbon Dioxide 20 L (22-30) mmol/L BUN 43 H (9-20) mg/dL Creatinine 1.55 H (0.66-1.25) mg/dL Glucose 617 H* (74-99) mg/dL POC Glucose (mg/dL) >600 H* (70-110) mg/dL Plasma Lactic Acid Lui (0.7-2.0) mmol/L Calcium (8.4-10.2) mg/dL Iron (65-175) UG/DL % Saturation (15.00-50.00) Transferrin (204.0-354.0) mg/dL Total Protein 5.5 L (6.3-8.2) g/dL Albumin 3.4 L (3.5-5.0) g/dL Lipase 617 H (23-300) U/L Urine Glucose (UA) (Negative) Urine Blood (Negative) SARS-CoV-2 (PCR) (Not Detectd) Crossmatch 07/18/24 07/18/24 07/18/24 Range/Units 16:47 16:47 16:56 WBC (3.8-10.6) k/uL RBC (4.30-5.90) m/uL Hgb (13.0-17.5) gm/dL Hct (39.0-53.0) % RDW (11.5-15.5) % Neutrophils # (1.3-7.7) k/uL APTT (22.0-30.0) sec VBG HCO3 22 L (24-28) mmol/L Sodium (137-145) mmol/L Potassium (3.5-5.1) mmol/L Chloride (98-107) mmol/L Carbon Dioxide (22-30) mmol/L BUN (9-20) mg/dL Creatinine (0.66-1.25) mg/dL Glucose (74-99) mg/dL POC Glucose (mg/dL) (70-110) mg/dL Plasma Lactic Acid Lui 3.6 H* (0.7-2.0) mmol/L Calcium (8.4-10.2) mg/dL Iron (65-175) UG/DL % Saturation (15.00-50.00) Transferrin (204.0-354.0) mg/dL Total Protein (6.3-8.2) g/dL Albumin (3.5-5.0) g/dL Lipase (23-300) U/L Urine Glucose (UA) (Negative) Urine Blood (Negative) SARS-CoV-2 (PCR) Detected A (Not Detectd) Crossmatch 07/18/24 07/18/24 07/18/24 Range/Units 17:31 19:39 20:08 WBC (3.8-10.6) k/uL RBC (4.30-5.90) m/uL Hgb (13.0-17.5) gm/dL Hct (39.0-53.0) % RDW (11.5-15.5) % Neutrophils # (1.3-7.7) k/uL APTT 18.7 L (22.0-30.0) sec VBG HCO3 (24-28) mmol/L Sodium (137-145) mmol/L Potassium (3.5-5.1) mmol/L Chloride (98-107) mmol/L Carbon Dioxide (22-30) mmol/L BUN (9-20) mg/dL Creatinine (0.66-1.25) mg/dL Glucose (74-99) mg/dL POC Glucose (mg/dL) 509 H* (70-110) mg/dL Plasma Lactic Acid Lui (0.7-2.0) mmol/L Calcium (8.4-10.2) mg/dL Iron (65-175) UG/DL % Saturation (15.00-50.00) Transferrin (204.0-354.0) mg/dL Total Protein (6.3-8.2) g/dL Albumin (3.5-5.0) g/dL Lipase (23-300) U/L Urine Glucose (UA) (Negative) Urine Blood (Negative) SARS-CoV-2 (PCR) (Not Detectd) Crossmatch See Detail 07/18/24 07/18/24 07/18/24 Range/Units 20:08 20:15 20:52 WBC (3.8-10.6) k/uL RBC (4.30-5.90) m/uL Hgb (13.0-17.5) gm/dL Hct (39.0-53.0) % RDW (11.5-15.5) % Neutrophils # (1.3-7.7) k/uL APTT (22.0-30.0) sec VBG HCO3 (24-28) mmol/L Sodium (137-145) mmol/L Potassium (3.5-5.1) mmol/L Chloride (98-107) mmol/L Carbon Dioxide (22-30) mmol/L BUN (9-20) mg/dL Creatinine (0.66-1.25) mg/dL Glucose (74-99) mg/dL POC Glucose (mg/dL) 512 H* (70-110) mg/dL Plasma Lactic Acid Lui 2.5 H* (0.7-2.0) mmol/L Calcium (8.4-10.2) mg/dL Iron (65-175) UG/DL % Saturation (15.00-50.00) Transferrin (204.0-354.0) mg/dL Total Protein (6.3-8.2) g/dL Albumin (3.5-5.0) g/dL Lipase (23-300) U/L Urine Glucose (UA) 4+ H (Negative) Urine Blood Trace H (Negative) SARS-CoV-2 (PCR) (Not Detectd) Crossmatch 07/18/24 07/18/24 07/18/24 Range/Units 21:03 22:17 22:17 WBC (3.8-10.6) k/uL RBC 1.88 L (4.30-5.90) m/uL Hgb 5.7 L* D (13.0-17.5) gm/dL Hct 17.9 L* (39.0-53.0) % RDW 18.0 H (11.5-15.5) % Neutrophils # (1.3-7.7) k/uL APTT (22.0-30.0) sec VBG HCO3 (24-28) mmol/L Sodium 132 L (137-145) mmol/L Potassium (3.5-5.1) mmol/L Chloride (98-107) mmol/L Carbon Dioxide 20 L (22-30) mmol/L BUN 35 H (9-20) mg/dL Creatinine 1.40 H (0.66-1.25) mg/dL Glucose 310 H (74-99) mg/dL POC Glucose (mg/dL) 472 H (70-110) mg/dL Plasma Lactic Acid Lui (0.7-2.0) mmol/L Calcium 8.0 L (8.4-10.2) mg/dL Iron (65-175) UG/DL % Saturation (15.00-50.00) Transferrin (204.0-354.0) mg/dL Total Protein (6.3-8.2) g/dL Albumin (3.5-5.0) g/dL Lipase (23-300) U/L Urine Glucose (UA) (Negative) Urine Blood (Negative) SARS-CoV-2 (PCR) (Not Detectd) Crossmatch 07/18/24 07/19/24 07/19/24 Range/Units 23:07 00:18 07:12 WBC (3.8-10.6) k/uL RBC 2.80 L (4.30-5.90) m/uL Hgb 8.3 L D (13.0-17.5) gm/dL Hct 26.5 L (39.0-53.0) % RDW 16.1 H (11.5-15.5) % Neutrophils # (1.3-7.7) k/uL APTT (22.0-30.0) sec VBG HCO3 (24-28) mmol/L Sodium (137-145) mmol/L Potassium (3.5-5.1) mmol/L Chloride (98-107) mmol/L Carbon Dioxide (22-30) mmol/L BUN (9-20) mg/dL Creatinine (0.66-1.25) mg/dL Glucose (74-99) mg/dL POC Glucose (mg/dL) (70-110) mg/dL Plasma Lactic Acid Lui 2.8 H* (0.7-2.0) mmol/L Calcium (8.4-10.2) mg/dL Iron 23 L (65-175) UG/DL % Saturation 9.54 L (15.00-50.00) Transferrin 172.0 L (204.0-354.0) mg/dL Total Protein (6.3-8.2) g/dL Albumin (3.5-5.0) g/dL Lipase (23-300) U/L Urine Glucose (UA) (Negative) Urine Blood (Negative) SARS-CoV-2 (PCR) (Not Detectd) Crossmatch 07/19/24 07/19/24 Range/Units 07:59 11:36 WBC (3.8-10.6) k/uL RBC (4.30-5.90) m/uL Hgb (13.0-17.5) gm/dL Hct (39.0-53.0) % RDW (11.5-15.5) % Neutrophils # (1.3-7.7) k/uL APTT (22.0-30.0) sec VBG HCO3 (24-28) mmol/L Sodium (137-145) mmol/L Potassium (3.5-5.1) mmol/L Chloride (98-107) mmol/L Carbon Dioxide (22-30) mmol/L BUN (9-20) mg/dL Creatinine (0.66-1.25) mg/dL Glucose (74-99) mg/dL POC Glucose (mg/dL) 417 H 267 H (70-110) mg/dL Plasma Lactic Acid Lui (0.7-2.0) mmol/L Calcium (8.4-10.2) mg/dL Iron (65-175) UG/DL % Saturation (15.00-50.00) Transferrin (204.0-354.0) mg/dL Total Protein (6.3-8.2) g/dL Albumin (3.5-5.0) g/dL Lipase (23-300) U/L Urine Glucose (UA) (Negative) Urine Blood (Negative) SARS-CoV-2 (PCR) (Not Detectd) Crossmatch Assessment and Plan (1) Diabetes Current Visit: Yes Status: Acute Code(s): E11.9 - TYPE 2 DIABETES MELLITUS WITHOUT COMPLICATIONS SNOMED Code(s): 87414194 (2) COVID Current Visit: Yes Status: Acute Code(s): U07.1 - COVID-19 SNOMED Code(s): 137065295 (3) Anemia Current Visit: Yes Status: Acute Code(s): D64.9 - ANEMIA, UNSPECIFIED SNOMED Code(s): 126625709 (4) Dark stools Current Visit: Yes Status: Acute Code(s): R19.5 - OTHER FECAL ABNORMALITIES SNOMED Code(s): 52222791 (5) Hyperglycemia Current Visit: Yes Status: Acute Code(s): R73.9 - HYPERGLYCEMIA, UNSPECIFIED SNOMED Code(s): 21088753 (6) Nausea and vomiting Current Visit: Yes Status: Acute Code(s): R11.2 - NAUSEA WITH VOMITING, UNS PECIFIED SNOMED Code(s): 75457504 Plan: . Patient monitor hemoglobin GI consultation in progress respiratory isolation and precautions for COVID. Continue to follow patient's progress Time with Patient: Greater than 30
[2024-07-20 06:05] LABS: Glucose,Whole Blood 165 mg/dL (70-110)
[2024-07-20 06:13] LABS: Anisocytosis Slight; HCT 24.6 % (39.0-53.0); HGB 8.4 gm/dL (13.0-17.5); Hypochromasia Slight; MCH 31.5 pg (25.0-35.0); MCHC 34.3 g/dL (31.0-37.0); MCV 91.9 fL (80.0-100.0); Mean Platelet Volume 8.7; Platelet Count 182 k/uL (150-450); RBC 2.67 m/uL (4.30-5.90); RDW 16.1 % (11.5-15.5); WBC 7.7 k/uL (3.8-10.6)
[2024-07-20] MEDS: GLIMEPIRIDE 1 MG TAB PO SCH (06:13)
[2024-07-20 06:23] LABS: African American GFR (CKD) 62 (>60 ml/min/1.73 sqM); Anion Gap 4 mmol/L; Blood Urea Nitrogen 28 mg/dL (9-20); Calcium 8.1 mg/dL (8.4-10.2); Carbon Dioxide 23 mmol/L (22-30); Chloride 107 mmol/L (98-107); Glucose 142 mg/dL (74-99); Non-African American GFR(CKD) 54 (>60 ml/min/1.73 sqM); Potassium 4.5 mmol/L (3.5-5.1); Sodium 134 mmol/L (137-145)
[2024-07-20 11:44] LABS: Glucose,Whole Blood 166 mg/dL (70-110)
[2024-07-20] MEDS ORDERED: PROPOFOL 10 MG/ML 20 ML VIAL IV ONE (12:50)
[2024-07-20] MEDS ORDERED: LIDOCAINE 1% INJ 10MG/ML (20 ML MDV) ONE (12:50)
[2024-07-20] MEDS: IV FLUID CONTINUATION 1,000 ML IV ONE ×2 (12:51→13:04)
--- NOTE | 2024-07-20 13:08 | P.PCN ---
Date of Procedure: 07/20/24 Procedure(s) Performed: BRIEF HISTORY: Patient is a 69-year-old, pleasant, white male scheduled for an upper endoscopy as a part evaluation of anemia and intermittent ocular stools. He was recently noted to have hemoglobin of 6.5 g/dL requiring unit of PRBC transfusion. Last colonoscopy July of this year revealed diverticulosis.. PROCEDURE PERFORMED: Esophagogastroduodenoscopy with biopsy. PREOPERATIVE DIAGNOSIS: Severe symptomatic anemia and intermittent dark red stools. IV sedation per anesthesia. PROCEDURE: After informed consent was obtained, the patient was brought into the endoscopy unit. IV sedation was administered by Anesthesia under continuous monitoring. Initially the Olympus GIF-140 video endoscope was inserted into the mouth. Esophagus intubated without any difficulty. It was gradually advanced into the stomach and duodenum and carefully examined. The bulb of the duodenum had a 1 cm duodenal ulcer with a clean base with no active bleeding. Mucosa of the second part of the duodenum appeared normal. The scope at this time was withdrawn to the stomach, adequately insufflated with air, and upon careful examination, mucosa of the antrum, had scattered erosions and biopsies were done from this area. Mucosa of the body, cardia and the fundus appeared normal. The scope was then withdrawn into the esophagus. The GE junction was located at 39 cm from the incisors. There were no erosions in the distal esophagus consistent with LA grade B reflux esophagitis. Rest of the esophagus appeared normal and the patient tolerated the procedure well. IMPRESSION: 1. 1 cm duodenal ulcer nonbleeding. 2. Antral erosive gastritis 3. LA grade B reflux esophagitis. RECOMMENDATIONS: The findings of this examination were discussed with the patient as well as his family. He was advised to continue on Protonix 40 mg twice daily. Avoid NSAIDs. Await biopsy results. Advance to regular diet..
--- NOTE | 2024-07-20 14:04 | P.PN ---
Subjective Progress Note Date: 07/20/24 H&P Date: 07/19/24 This a pleasant 73-year-old male with a past medical history including diabetes mellitus, hyperlipidemia, sleep apnea, thyroid disorder and cataract who had presented to the emergency department for high blood sugars at home and feeling off as well as weakness. Patient states his was recently sick and then he started getting sick with a cough and congestion apparently Covid positive. He had repeat blood work done with a drop in his hemoglobin from 7.4-5.7. He was transfused 2 units of blood. Patient states he was seen in the emergency department and admitted about a week ago with bloody bowel movements. Patient states he had multiple episodes of rectal bleeding from Thursday into Thursday a week ago. He had a CT of the abdomen and pelvis that showed duodenitis and sigmoid diverticulosis without evidence of diverticulitis. He was discharged home. Prior to that he had a colonoscopy for colon screening on 07/08/[address] Rodriguez with findings of sigmoid diverticulosis. Patient states he has been having bowel movements over the last few days and they have been dark purple possibly black. He denies any use of anticoagulation. He is on daily baby aspirin. No regular NSAID use but was started on a Medrol Dosepak. He has had no vomiting since yesterday and has stopped taking his azithromycin. He denied any coffee-ground emesis or hematemesis. No bright red blood in his stool or rectal bleeding. States he has a little bit of mid to lower abdominal pain. No history of upper GI bleed, peptic ulcer disease or previous upper endoscopy. 07/20/2024 hemoglobin 8.4, platelets 182.Renal function improving ,bicarb 23, BUN 28, creatinine 1.31. n.p.o., scheduled for EGD this afternoon. Objective - Vital Signs Vital signs: Vital Signs Temp 97.4 F L 07/20/24 08:00 Pulse 78 07/20/24 08:00 Resp 18 07/20/24 08:00 BP 100/50 07/20/24 08:00 Pulse Ox 96 07/20/24 08:00 FiO2 Intake & Output 07/19/24 07/20/24 07/20/24 18:59 06:59 18:59 Intake Total 180 240 Balance 180 240 Weight 64.41 kg 60.1 kg Intake: Oral 180 240 Other: Voiding Method Toilet Toilet Toilet Urinal Urinal Urinal # Voids 2 - Exam GENERAL: This is a 73-year-old . Pleasant and cooperative. HEENT: Head is atraumatic, normocephalic. Pupils are equal, round, and reactive to light. Sclerae anicteric. Conjunctivae are clear. Mucus membranes of the mouth are moist. Neck is supple. RESPIRATORY: With congestion and slight cough. CARDIOVASCULAR: Regular rate and rhythm. S1 and S2 noted. GASTROINTESTINAL: No distention noted. Abdomen soft and round. Normal active bowel sounds auscultated x 4 quadrants. No pain or tenderness noted upon palpation. INTEGUMENTARY: No cyanosis. No jaundice. No rashes noted. No cellulitis noted. EXTREMITIES: 2+ peripheral pulses. No evidence of peripheral edema. No calf tenderness noted. NEUROLOGIC: Cranial nerves II-XII intact. PSYCHIATRIC: Awake, alert, and oriented X 3. Appropriate affect. Intact judgement and insight. He has been - Labs CBC & Chem 7: 07/21/24 06:56 07/21/24 06:56 Labs: Abnormal Lab Results - Last 24 Hours (Table) 07/19/24 07/19/24 07/19/24 Range/Units 00:18 11:36 17:04 RBC (4.30-5.90) m/uL Hgb (13.0-17.5) gm/dL Hct (39.0-53.0) % RDW (11.5-15.5) % Sodium (137-145) mmol/L BUN (9-20) mg/dL Creatinine (0.66-1.25) mg/dL Glucose (74-99) mg/dL POC Glucose (mg/dL) 267 H 242 H (70-110) mg/dL Calcium (8.4-10.2) mg/dL Iron 23 L (65-175) UG/DL % Saturation 9.54 L (15.00-50.00) Transferrin 172.0 L (204.0-354.0) mg/dL 07/19/24 07/20/24 07/20/24 Range/Units 20:17 05:37 05:37 RBC 2.67 L (4.30-5.90) m/uL Hgb 8.4 L (13.0-17.5) gm/dL Hct 24.6 L (39.0-53.0) % RDW 16.1 H (11.5-15.5) % Sodium 134 L (137-145) mmol/L BUN 28 H (9-20) mg/dL Creatinine 1.31 H (0.66-1.25) mg/dL Glucose 142 H (74-99) mg/dL POC Glucose (mg/dL) 255 H (70-110) mg/dL Calcium 8.1 L (8.4-10.2) mg/dL Iron (65-175) UG/DL % Saturation (15.00-50.00) Transferrin (204.0-354.0) mg/dL 07/20/24 Range/Units 06:04 RBC (4.30-5.90) m/uL Hgb (13.0-17.5) gm/dL Hct (39.0-53.0) % RDW (11.5-15.5) % Sodium (137-145) mmol/L BUN (9-20) mg/dL Creatinine (0.66-1.25) mg/dL Glucose (74-99) mg/dL POC Glucose (mg/dL) 165 H (70-110) mg/dL Calcium (8.4-10.2) mg/dL Iron (65-175) UG/DL % Saturation (15.00-50.00) Transferrin (204.0-354.0) mg/dL Assessment and Plan Assessment: (1) Diabetes Current Visit: Yes Status: Acute Code(s): E11.9 - TYPE 2 DIABETES MELLITUS WITHOUT COMPLICATIONS SNOMED Code(s): 04138669 (2) COVID Current Visit: Yes Status: Acute Code(s): U07.1 - COVID-19 SNOMED Code(s): 802413278 (3) Anemia Current Visit: Yes Status: Acute Code(s): D64.9 - ANEMIA, UNSPECIFIED SNOMED Code(s): 267574833 (4) Dark stools Current Visit: Yes Status: Acute Code(s): R19.5 - OTHER FECAL ABNORMALITIES SNOMED Code(s): 73119188 (5) Hyperglycemia Current Visit: Yes Status: Acute Code(s): R73.9 - HYPERGLYCEMIA, UNSPECIFIED SNOMED Code(s): 52364249 (6) Nausea and vomiting Current Visit: Yes Status: Acute Code(s): R11.2 - NAUSEA WITH VOMITING, UNSPECIFIED SNOMED Code(s): 23991117 (7) chronic renal failure stage III baseline creatinine 1.4 (8) hypothyroidism (9) glaucoma (10) hyperlipidemia (11) obstructive sleep apnea uses CPAP (12) lactic acidosis, resolved with IV fluid hydration Plan: Continue on current medication regimen ,monitoring and symptomatic treatment. Maintain PPI. NPO, EGD pending. Hemoglobin A1c pending. Close monitoring of hemoglobin, renal function with repeat labs ordered for a.m. The impression and plan of care has been dictated as directed. : I performed a history and examination of this patient, discussed the same with the dictator. I agree with the dictator's note ,documented as a scribe. Any additional findings or plans will be noted.
[2024-07-20 16:37] LABS: Glucose,Whole Blood 190 mg/dL (70-110)
[2024-07-20] MEDS: PANTOPRAZOLE 40 MG/10 ML VIAL IV SCH (20:18)
[2024-07-20 20:20] LABS: Glucose,Whole Blood 147 mg/dL (70-110)
[2024-07-21 06:33] LABS: Glucose,Whole Blood 129 mg/dL (70-110)
[2024-07-21 07:20] LABS: HCT 26.6 % (39.0-53.0); HGB 8.9 gm/dL (13.0-17.5); Hypochromasia Slight; MCHC 33.6 g/dL (31.0-37.0); MCV 92.4 fL (80.0-100.0); Mean Platelet Volume 8.5; Platelet Count 174 k/uL (150-450); RBC 2.88 m/uL (4.30-5.90); RDW 15.9 % (11.5-15.5); WBC 5.7 k/uL (3.8-10.6)
[2024-07-21 07:30] LABS: African American GFR (CKD) 64 (>60 ml/min/1.73 sqM); Anion Gap 2 mmol/L; Blood Urea Nitrogen 20 mg/dL (9-20); Calcium 7.6 mg/dL (8.4-10.2); Carbon Dioxide 23 mmol/L (22-30); Chloride 109 mmol/L (98-107); Glucose 116 mg/dL (74-99); Non-African American GFR(CKD) 55 (>60 ml/min/1.73 sqM); Potassium 4.2 mmol/L (3.5-5.1); Sodium 134 mmol/L (137-145)
[2024-07-21 11:52] LABS: Glucose,Whole Blood 134 mg/dL (70-110)
--- NOTE | 2024-07-21 13:33 | P.PN ---
Subjective Progress Note Date: 07/21/24 This a pleasant 73-year-old male with a past medical history including diabetes mellitus, hyperlipidemia, sleep apnea, thyroid disorder and cataract who had presented to the emergency department for high blood sugars at home and feeling off as well as weakness. Patient states his was recently sick and then he started getting sick with a cough and congestion apparently Covid positive. He had repeat blood work done with a drop in his hemoglobin from 7.4-5.7. He was transfused 2 units of blood. Patient states he was seen in the emergency department and admitted about a week ago with bloody bowel movements. Patient states he had multiple episodes of rectal bleeding from Thursday into Thursday a week ago. He had a CT of the abdomen and pelvis that showed duodenitis and sigmoid diverticulosis without evidence of diverticulitis. He was discharged home. Prior to that he had a colonoscopy for colon screening on 07/08/[address] Rodriguez with findings of sigmoid diverticulosis. Patient states he has been having bowel movements over the last few days and they have been dark purple possibly black. He denies any use of anticoagulation. He is on daily baby aspirin. No regular NSAID use but was started on a Medrol Dosepak. He has had no vomiting since yesterday and has stopped taking his azithromycin. He denied any coffee-ground emesis or hematemesis. No bright red blood in his s tool or rectal bleeding. States he has a little bit of mid to lower abdominal pain. No history of upper GI bleed, peptic ulcer disease or previous upper endoscopy. 07/21. Patient seen and examined. Patient underwent EGD showing 1 cm duodenal ulcer nonbleeding, Antral erosive gastritis, LA grade B reflux esophagitis. Denies any abdominal pain. Denies any nausea or vomiting. No complaint of blood in the stools REVIEW OF SYSTEMS: CONSTITUTIONAL: No fever, no malaise,. CARDIOVASCULAR: No chest pain, no palpitations, no syncope. PULMONARY: No shortness of breath, no cough, GASTROINTESTINAL: As mentioned above NEUROLOGICAL: No headaches, no weakness, PHYSICAL EXAMINATION: GENERAL: The patient is alert and oriented x3, not in any acute distress. Well developed, well nourished. HEENT: Pupils are round and equally reacting to light. EOMI. No scleral icterus. No conjunctival pallor. Normocephalic, atraumatic. No pharyngeal erythema. No thyromegaly. CARDIOVASCULAR: S1 and S2 present. No murmurs, rubs, or gallops. PULMONARY: Chest is clear to auscultation, no wheezing or crackles. ABDOMEN: Soft, nontender, nondistended, normoactive bowel sounds. No palpable organomegaly. MUSCULOSKELETAL: No joint swelling or deformity. EXTREMITIES: No cyanosis, clubbing, or pedal edema. NEUROLOGICAL: Gross neurological examination did not reveal any focal deficits. SKIN: No rashes. Assessment and plan Acute blood loss anemia Dark stools GI bleed Nausea and vomiting COVID and infection Diabetes mellitus Hyperglycemia chronic renal failure stage III baseline creatinine 1.4 hypothyroidism glaucoma hyperlipidemia obstructive sleep apnea uses CPAP lactic acidosis Monitor vital signs Monitor CBC Monitor CMP Continue IV Protonix 40 mg twice a day. Continue Lipitor Continue Synthroid GI following Labs and medication were reviewed.. Continue same treatment. Continue with symptomatic treatment. Resume home medication. Monitor labs and vitals. DVT and GI prophylaxis. Further recommendations as per clinical course of the patient Dictation was produced using [employer] dictation software. please excuse any grammatical, word or spelling errors. Objective - Vital Signs Vital signs: Vital Signs Temp 97.7 F 07/21/24 08:00 Pulse 79 07/21/24 08:00 Resp 18 07/21/24 08:00 BP 137/66 07/21/24 08:00 Pulse Ox 96 07/21/24 08:00 FiO2 Intake & Output 07/20/24 07/21/24 07/21/24 18:59 06:59 18:59 Intake Total 640 540 358 Output Total 400 Balance 640 140 358 Weight 60.7 kg Intake: IV 100 Oral 540 540 358 Output: Urine 400 Other: Voiding Method Toilet Toilet Toilet Urinal Urinal Urinal # Voids 2 1 1 # Bowel Movements 1 - Labs CBC & Chem 7: 07/21/24 06:56 07/21/24 06:56 Labs: Abnormal Lab Results - Last 24 Hours (Table) 07/20/24 07/20/24 07/20/24 Range/Units 11:42 16:35 20:17 RBC (4.30-5.90) m/uL Hgb (13.0-17.5) gm/dL Hct (39.0-53.0) % RDW (11.5-15.5) % Sodium (137-145) mmol/L Chloride (98-107) mmol/L Creatinine (0.66-1.25) mg/dL Glucose (74-99) mg/dL POC Glucose (mg/dL) 166 H 190 H 147 H (70-110) mg/dL Hemoglobin A1c (<=6.0) % Calcium (8.4-10.2) mg/dL 07/21/24 07/21/24 07/21/24 Range/Units 06:32 06:56 06:56 RBC 2.88 L (4.30-5.90) m/uL Hgb 8.9 L (13.0-17.5) gm/dL Hct 26.6 L (39.0-53.0) % RDW 15.9 H (11.5-15.5) % Sodium (137-145) mmol/L Chloride (98-107) mmol/L Creatinine (0.66-1.25) mg/dL Glucose (74-99) mg/dL POC Glucose (mg/dL) 129 H (70-110) mg/dL Hemoglobin A1c 6.9 H (<=6.0) % Calcium (8.4-10.2) mg/dL 07/21/24 Range/Units 06:56 RBC (4.30-5.90) m/uL Hgb (13.0-17.5) gm/dL Hct (39.0-53.0) % RDW (11.5-15.5) % Sodium 134 L (137-145) mmol/L Chloride 109 H (98-107) mmol/L Creatinine 1.27 H (0.66-1.25) mg/dL Glucose 116 H (74-99) mg/dL POC Glucose (mg/dL) (70-110) mg/dL Hemoglobin A1c (<=6.0) % Calcium 7.6 L (8.4-10.2) mg/dL
--- NOTE | 2024-07-21 15:09 | P.PN ---
Subjective Progress Note Date: 07/21/24 Principal diagnosis: GI bleed This a pleasant 73-year-old male with a past medical history including diabetes mellitus, hyperlipidemia, sleep apnea, thyroid disorder and cataract who had presented to the emergency department for high blood sugars at home and feeling off as well as weakness. Patient states his was recently sick and then he started getting sick with a cough and congestion. He had called his primary care physician Dr. Ashley and was started on a Z-Quan and Medrol dose pack. After starting the new medications he started having nausea and vomiting. When he presented to the emergency department he had blood work done and showed he was anemic. He had repeat blood work done with a drop in his hemoglobin from 7.4- 5.7. He was transfused 2 units of blood. Patient states he was seen in the emergency department and admitted about a week ago with bloody bowel movements. Patient states he had multiple episodes of rectal bleeding from Thursday into Thursday a week ago. He had a CT of the abdomen and pelvis that showed duodenitis and sigmoid diverticulosis without evidence of diverticulitis. He was discharged home. Prior to that he had a colonoscopy for colon screening on 07/08/[address] Rodriguez with findings of sigmoid diverticulosis. Patient states he has been having bowel movements over the last few days and they have been dark purple possibly black. He denies any use of anticoagulation. He is on daily baby aspirin. No regular NSAID use but was started on a Medrol Dosepak. He has had no vomiting since yesterday and has stopped taking his azithromycin. He denied any coffee-ground emesis or hematemesis. No bright red blood in his stool or rectal bleeding. States he has a little bit of mid to lower abdominal pain. No history of upper GI bleed, peptic ulcer disease or previous upper endoscopy. 07/21/2024 Patient seen and examined today as a follow-up. Yesterday he underwent upper endoscopy with findings of 1 cm duodenal ulcer without any bleeding, antral erosive gastritis and LA grade B reflux esophagitis. Recommendations for Protonix 40 mg twice daily. Discussed with patient to avoid NSAIDs, patient has been taking Advil daily for pain. Today he states no abdominal pain, no nausea or vomiting. No bowel movement, no complaints of rectal bleeding. Objective - Vital Signs Vital signs: Vital Signs Temp 97.4 F L 07/20/24 19:40 Pulse 78 07/21/24 04:00 Resp 18 07/21/24 04:00 BP 130/73 07/21/24 04:00 Pulse Ox 97 07/21/24 04:00 FiO2 Intake & Output 07/20/24 07/21/24 07/21/24 18:59 06:59 18:59 Intake Total 640 540 240 Output Total 400 Balance 640 140 240 Weight 60.7 kg Intake: IV 100 Oral 540 540 240 Output: Urine 400 Other: Voiding Method Toilet Toilet Urinal Urinal # Voids 2 1 1 # Bowel Movements 1 - Exam General appearance: The patient is alert, oriented, appears in no acute distress. HET: Head is normocephalic and atraumatic. Conjunctiva pink. Sclera anicteric. Neck: Supple without lymphadenopathy. Abdomen: Soft, nontender, nondistended. Extremities: Normal skin color and turgor. No pedal edema Skin: No rashes, no jaundice Neurological: No focal deficits. Alert and oriented. - Labs CBC & Chem 7: 07/21/24 06:56 07/21/24 06:56 Labs: Abnormal Lab Results - Last 24 Hours (Table) 07/20/24 07/20/24 07/20/24 Range/Units 11:42 16:35 20:17 RBC (4.30-5.90) m/uL Hgb (13.0-17.5) gm/dL Hct (39.0-53.0) % RDW (11.5-15.5) % Sodium (137-145) mmol/L Chloride (98-107) mmol/L Creatinine (0.66-1.25) mg/dL Glucose (74-99) mg/dL POC Glucose (mg/dL) 166 H 190 H 147 H (70-110) mg/dL Calcium (8.4-10.2) mg/dL 07/21/24 07/21/24 07/21/24 Range/Units 06:32 06:56 06:56 RBC 2.88 L (4.30-5.90) m/uL Hgb 8.9 L (13.0-17.5) gm/dL Hct 26.6 L (39.0-53.0) % RDW 15.9 H (11.5-15.5) % Sodium 134 L (137-145) mmol/L Chloride 109 H (98-107) mmol/L Creatinine 1.27 H (0.66-1.25) mg/dL Glucose 116 H (74-99) mg/dL POC Glucose (mg/dL) 129 H (70-110) mg/dL Calcium 7.6 L (8.4-10.2) mg/dL Assessment and Plan (1) Anemia Narrative/Plan: 73-year-old male with recent hospitalization for lower GI bleed with bright red blood discharge little over a week ago thought to be likely diverticular bleed presents to the emergency department for hyperglycemia and positive COVID-19 infection. Started recently on azithromycin and Medrol Dosepak by his primary care provider. Had subsequent nausea and vomiting without any hematemesis or coffee-ground emesis however patient reports black stools over last few days duration. He was noted to be anemic on admission with a further drop in his hemoglobin down as low as 5.7 with a normocytic normochromic anemia requiring 2 units of blood. Iron was low at 23 saturation low at 9.5 ferritin was not conrad ected. Elevated BUN. Need to consider possible upper GI bleed as source for anemia. No need for lower endoscopy has patient just had colonoscopy 2 weeks ago. Upper endoscopy revealed nonbleeding 1 cm duodenal ulcer, antral erosive gastritis and LA grade B reflux esophagitis, possibly secondary to long-term NSAID use. Continue with Protonix 40 mg twice daily. Current Visit: Yes Status: Acute Code(s): D64.9 - ANEMIA, UNSPECIFIED SNOMED Code(s): 699055503 (2) Dark stools Current Visit: Yes Status: Acute Code(s): R19.5 - OTHER FECAL ABNORMALITIES SNOMED Code(s): 82744620 (3) Nausea and vomiting Narrative/Plan: Resolved Current Visit: Yes Status: Acute Code(s): R11.2 - NAUSEA WITH VOMITING, UNSPECIFIED SNOMED Code(s): 70376773 Plan: 1. Continue symptomatic and supportive care 2. Diet as tolerated 3. Avoid NSAIDs. Discussed with patient to avoid taking any anti-inflammatori es, discontinue Advil 4. Protonix 40 mg twice daily Thank you for this consultation, patient is cleared from gastroenterology for discharge. Follow-up in 1 to [address] Nghia Zhu I agree with the dictator's note, documented as a scribe by Vale Lee.
[2024-07-21 16:52] LABS: Glucose,Whole Blood 206 mg/dL (70-110)
[2024-07-21 21:00] LABS: Glucose,Whole Blood 202 mg/dL (70-110)
[2024-07-21 21:44] VITALS: RESP 16
[2024-07-22 06:02] LABS: Glucose,Whole Blood 171 mg/dL (70-110)
[2024-07-22 06:37] LABS: Basophils % (A) 0 %; Eosinophils # (A) 0.1 k/uL (0-0.7); Eosinophils % (A) 3 %; HCT 27.6 % (39.0-53.0); HGB 9.1 gm/dL (13.0-17.5); Hypochromasia Slight; Lymphocytes # (A) 1.4 k/uL (1.0-4.8); Lymphocytes % (A) 27 %; MCH 30.7 pg (25.0-35.0); MCHC 32.9 g/dL (31.0-37.0); MCV 93.4 fL (80.0-100.0); Mean Platelet Volume 8.6; Monocytes # (A) 0.3 k/uL (0-1.0); Monocytes % (A) 7 %; Neutrophils % (A) 61 %; Platelet Count 177 k/uL (150-450); RBC 2.96 m/uL (4.30-5.90); RDW 15.6 % (11.5-15.5); WBC 4.9 k/uL (3.8-10.6)
[2024-07-22 06:47] LABS: ALT 16 U/L (4-49); AST 28 U/L (17-59); African American GFR (CKD) 66 (>60 ml/min/1.73 sqM); Albumin 2.3 g/dL (3.5-5.0); Alkaline Phosphatase 42 U/L (38-126); Anion Gap 4 mmol/L; Blood Urea Nitrogen 17 mg/dL (9-20); Calcium 7.6 mg/dL (8.4-10.2); Carbon Dioxide 24 mmol/L (22-30); Chloride 107 mmol/L (98-107); Glucose 139 mg/dL (74-99); Non-African American GFR(CKD) 57 (>60 ml/min/1.73 sqM); Potassium 4.3 mmol/L (3.5-5.1); Sodium 135 mmol/L (137-145); Total Bilirubin 0.7 mg/dL (0.2-1.3); Total Protein 4.3 g/dL (6.3-8.2)
[2024-07-22 10:07] VITALS: BP 158/85; PULSE 78; TEMP 97.8
--- NOTE | 2024-07-22 10:42 | P.DS ---
Providers Date of admission: 07/18/24 21:49 Expected date of discharge: 07/22/24 Attending physician: Mitch Ashley Primary care physician: Mitch Ashley Hospital Course: Discharge diagnoses; Acute blood loss anemia Dark stools GI bleed Nausea and vomiting COVID and infection Diabetes mellitus Hyperglycemia chronic renal failure stage III baseline creatinine 1.4 hypothyroidism glaucoma hyperlipidemia obstructive sleep apnea uses CPAP lactic acidosis Hospital course; This a pleasant 73-year-old male with a past medical history including diabetes mellitus, hyperlipidemia, sleep apnea, thyroid disorder and cataract who had presented to the emergency department for high blood sugars at home and feeling off as well as weakness. Patient states his was recently sick and then he started getting sick with a cough and congestion apparently Covid positive. He had repeat blood work done with a drop in his hemoglobin from 7.4-5.7. He was transfused 2 units of blood. Patient states he was seen in the emergency department and admitted about a week ago with bloody bowel movements. Patient states he had multiple episodes of rectal bleeding from Thursday into Thursday a week ago. He had a CT of the abdomen and pelvis that showed duodenitis and sigmoid diverticulosis without evidence of diverticulitis. He was discharged home. Prior to that he had a colonoscopy for colon screening on 07/08/[address] Rodriguez with findings of sigmoid diverticulosis. Patient states he has been having bowel movements over the last few days and they have been dark purple possibly black. He denies any use of anticoagulation. He is on daily baby aspirin. No regular NSAID use but was started on a Medrol Dosepak. He has had no vomiting since yesterday and has stopped taking his azithromycin. He denied any coffee-ground emesis or hematemesis. No bright red blood in his stool or rectal bleeding. States he has a little bit of mid to lower abdominal pain. No history of upper GI bleed, peptic ulcer disease or previous upper endoscopy. 07/21. Patient seen and examined. Patient underwent EGD showing 1 cm duodenal ulcer nonbleeding, Antral erosive gastritis, LA grade B reflux esophagitis. Denies any abdominal pain. Denies any nausea or vomiting. No complaint of blood in the stools /. Patient seen and examined. Hemoglobin remained stable. Being discharged on oral Protonix twice a day. Outpatient follow-up with GI PHYSICAL EXAMINATION: GENERAL: The patient is alert and oriented x3, not in any acute distress. Well developed, well nourished. HEENT: Pupils are round and equally reacting to light. EOMI. No scleral icterus. No conjunctival pallor. Normocephalic, atraumatic. No pharyngeal erythema. No thyromegaly. CARDIOVASCULAR: S1 and S2 present. No murmurs, rubs, or gallops. PULMONARY: Chest is clear to auscultation, no wheezing or crackles. ABDOMEN: Soft, nontender, nondistended, normoactive bowel sounds. No palpable organomegaly. MUSCULOSKELETAL: No joint swelling or deformity. EXTREMITIES: No cyanosis, clubbing, or pedal edema. NEUROLOGICAL: Gross neurological examination did not reveal any focal deficits. SKIN: No rashes. Dictation was produced using [employer] dictation software. please excuse any grammatical, word or spelling errors. Patient Condition at Discharge: Good Plan - Discharge Summary Discharge Rx Participant: No New Discharge Prescriptions: New Pantoprazole Sodium [Protonix] 40 mg PO BID #60 tab Continue metFORMIN HCL [Glucophage] 1,000 mg PO W/BRKFST Cholecalciferol [Vitamin D3 (25 Mcg = 1000 Iu)] 50 mcg PO DAILY Azithromycin [Zithromax Z Pack] See Taper PO DIRECTED Glimepiride [Amaryl] 1 mg PO W/BRKFST Levothyroxine Sodium [Synthroid] 50 mcg PO DAILY Atorvastatin [Lipitor] 40 mg PO HS #30 tab metFORMIN HCL 500 mg PO W/SUPPER #0 Timolol 0.5% Ophth Soln [Timoptic 0.5% Ophth Soln] 1 drop BOTH EYES HS methylPREDNISolone [Medrol Dose Pack] See Taper PO DIRECTED Discontinued Aspirin [Adult Low Dose Aspirin EC] 81 mg PO DAILY Discharge Medication List metFORMIN HCL [Glucophage] 1,000 mg PO W/BRKFST 08/13/15 [History] Cholecalciferol [Vitamin D3 (25 Mcg = 1000 Iu)] 50 mcg PO DAILY 12/03/22 [History] Glimepiride [Amaryl] 1 mg PO W/BRKFST 12/03/22 [History] Levothyroxine Sodium [Synthroid] 50 mcg PO DAILY 12/03/22 [History] Atorvastatin [Lipitor] 40 mg PO HS #30 tab 12/05/22 [Rx] metFORMIN HCL 500 mg PO W/SUPPER #0 12/05/22 [Rx] Azithromycin [Zithromax Z Pack] See Taper PO DIRECTED 07/18/24 [History] Timolol 0.5% Ophth Soln [Timoptic 0.5% Ophth Soln] 1 drop BOTH EYES HS 07/18/24 [History] methylPREDNISolone [Medrol Dose Pack] See Taper PO DIRECTED 07/18/24 [History] Pantoprazole Sodium [Protonix] 40 mg PO BID #60 tab 07/20/24 [Rx] Follow up Appointment(s)/Referral(s): Mitch Ashley DO [Primary Care Provider] - 1 Week Marily Zhu MD [STAFF PHYSICIAN] - 1 Week Discharge Disposition: HOME SELF-CARE
[2024-07-22 11:07] LABS: Glucose,Whole Blood 243 mg/dL (70-110)
== END 2024-07-22 12:18 | disposition home or self-care (01) | DRG 377 ==
LOC: EC 15:36 → 3SCARD 21:49
PROVIDERS: ADMIT Family Medicine; ATTEND Family Medicine
PROC: 30233N1 Transfusion of Nonautologous Red Blood Cells into Peripheral Vein, Percutaneous Approach (ICD-10-PCS; 2024-07-19)
PROC: 0DB78ZX Excision of Stomach, Pylorus, Via Natural or Artificial Opening Endoscopic, Diagnostic (ICD-10-PCS; principal; 2024-07-20 11:55)
DX: K29.01 Acute gastritis with bleeding (principal); U07.1 COVID-19; E87.20 Acidosis, unspecified; E11.22 Type 2 diabetes mellitus with diabetic chronic kidney disease; N18.30 Chronic kidney disease, stage 3 unspecified; E03.9 Hypothyroidism, unspecified; K26.9 Duodenal ulcer, unspecified as acute or chronic, without hemorrhage or perforation; D62 Acute posthemorrhagic anemia; E11.65 Type 2 diabetes mellitus with hyperglycemia; G47.33 Obstructive sleep apnea (adult) (pediatric); E78.5 Hyperlipidemia, unspecified; H40.9 Unspecified glaucoma; K21.00 Gastro-esophageal reflux disease with esophagitis, without bleeding; K29.80 Duodenitis without bleeding; K57.30 Diverticulosis of large intestine without perforation or abscess without bleeding; Z79.82 Long term (current) use of aspirin; Z79.84 Long term (current) use of oral hypoglycemic drugs; Z79.890 Hormone replacement therapy; Z79.899 Other long term (current) drug therapy; Z87.442 Personal history of urinary calculi; Z20.822 Contact with and (suspected) exposure to COVID-19
CPT/HCPCS: 36415; 36430; 43239; 71046; 80048; 80053; 81001; 82009; 82150; 82607; 82746; 82803; 83036; 83540; 83550; 83605; 83690; 83735; 84100; 85025; 85027; 85610; 85730; 86850; 86900; 86901; 86920; 87636; 88305; 88342; 93005; 96361; 96372; 96374; 96375; 96376; 99285

== ENCOUNTER → 2024-08-15 | Outpatient (CLI) | payer MEDICARE, OTHER ==
[2024-08-15 16:37] LABS: ALT 13 U/L (10-49); AST 23 U/L (14-35); Chol/HDL Ratio 2.47 Ratio; LDL Cholesterol,Calculated 55.7 mg/dL (0.0-131.0); VLDL Calculation 17.52 mg/dL (5.00-40.00)
== END | disposition home or self-care (01) ==
LOC: LABWHC1 08:54
PROVIDERS: ATTEND Internal Medicine Interventional Cardiology
DX: E78.2 Mixed hyperlipidemia (principal)
CPT/HCPCS: 36415; 80061; 84450; 84460